=== PATIENT | female | born 1965 | race Caucasian/White ===

== ENCOUNTER 2018-06-13 16:54 | Inpatient (IN) | payer OTHER ==
--- NOTE | 2018-06-13 17:05 | PDOC ---
History of Present Illness - General Chief Complaint: Shortness of Breath Stated Complaint: Vomiting/Diarrhea FEVER Time Seen by Provider: 06/13/18 17:05 - History of Present Illness Initial Comments: 53 yo F with a hx of COPD, Asthma, PE, multiple episodes of PNA, Hep C, endocarditis, T2DM, HTN, CAD, pacemaker, kidney disease, anxiety is here with a week of subjective fevers, unintentional 15 ib weight loss, night sweats, productive cough with blood streaked sputum, watery diarrhea, throat pain, SOB and extreme difficulty breathing. She admits to a hx of prior IV drug use with heroin. She also endorses chronic headaches and back pain. She denies a hx of HIV - She has verbally consented to be tested for HIV Patient does not have a PCP Number of her brother: Cell - [phone]. Home - [phone] Allergies: Ciprofloxacin, Sulfa drugs. Patient has a hx of heroin use. She smokes half a pack a day. Drinks recreationally. Past History - Past Medical History Allergies/Adverse Reactions: Allergies Allergy/AdvReac Type Severity Reaction Status Date / Time ciprofloxacin [From Cipro] Allergy Verified 06/13/18 16:59 Sulfa (Sulfonamide Allergy Verified 06/13/18 16:59 Antibiotics) Review of Systems - Review of Systems Comments:: CONSTITUTIONAL: Present: fever, chills, diaphoresis, generalized weakness, malaise, loss of appetite HEENT: Present: Throat pain Absent: rhinorrhea, nasal congestion, throat swelling, difficulty swallowing, mouth swelling, ear pain, eye pain, visual Changes CARDIOVASCULAR: Absent: chest pain, syncope, palpitations, irregular heart rate, lightheadedness , peripheral edema RESPIRATORY: Present: cough, shortness of breath, wheezing, hemoptysis Absent: cough, shortness of breath, orthopnea, stridor GASTROINTESTINAL: Present: nausea, vomiting, diarrhea Absent: abdominal pain, abdominal distension, constipation, melena, hematochezia GENITOURINARY: Present: dysuria, frequency, urgency Absent: hesitancy, hematuria, flank pain, genital pain MUSCULOSKELETAL: Present: Myalgia Absent: arthralgia, joint swelling SKIN: Absent: rash, itching, pallor HEMATOLOGIC/IMMUNOLOGIC: Present: frequent infections Absent: easy bleeding, easy bruising, lymphadenopathy ENDOCRINE: Absent: unexplained weight gain, unexplained weight loss, heat intolerance, cold intolerance NEUROLOGIC: present: headache Absent: focal weakness or paresthesias, dizziness, unsteady gait, seizure, mental status changes, bladder or bowel incontinence PSYCHIATRIC: Present: anxiety Absent: depression, suicidal or homicidal ideation, hallucinations. *Physical Exam - Physical Exam Comments: Rectal Temp: 101.5 GENERAL: Well developed, well nourished. Awake and alert. Moderate distress. HEENT: Oropharynx has significant foam and saliva. She appears very dry. Normocephalic, atraumatic. PERRLA, EOMI. No conjunctival pallor. Sclera are non- icteric. Moist mucous membranes. NECK: Supple. Full ROM. No JVD. No thyromegaly. No lymphadenopathy. CARDIOVASCULAR: Tachycardic rate and regular rhythm. No murmurs, rubs, or gallops. Distal pulses are 2+ and symmetric. PULMONARY: There are diffuse rales and expiratory wheezes throughout all lung ga. Clear evidence of respiratory distress. No rhonchi or crackles. ABDOMINAL: Soft. Non-tender. Non-distended. No rebound or guarding. No organomegaly. Normoactive bowel sounds. MUSCULOSKELETAL Normal range of motion at all joints. No bony deformities or tenderness. No CVA tenderness. EXTREMITIES: No cyanosis. No clubbing. No edema. No calf tenderness. SKIN: Warm and dry. Normal capillary refill. No rashes. No jaundice. NEUROLOGICAL: Alert, awake, appropriate. Cranial nerves 2-12 intact. No deficits to light touch in face, upper extremities and lower extremities. No motor deficits in the in face, upper extremities and lower extremities. Normal speech. Gait is normal without ataxia. PSYCHIATRIC: Extremely anxious mood. Cooperative. Good eye contact. Appropriate affect. ED Treatment Course - LABORATORY CBC & Chemistry Diagram: 06/13/18 17:55 06/13/18 17:55 Medical Decision Making - Medical Decision Making 53 yo F with a hx of COPD, Asthma, multiple episodes of PNA, Hep C, endocarditis , T2DM, HTN, CAD, pacemaker, kidney disease, anxiety is here with a week of subjective fevers, unintentional 15 ib weight loss, night sweats, productive cough with blood streaked sputum, watery diarrhea, throat pain, SOB and extreme difficulty breathing. She admits to a hx of prior IV drug use with heroin. DD is large but highest on it includes: PNA, Asthma exacerbation, COPD exacerbation, PE, CHF, HIV, TB, Lung cancer, URI, Gastroenteritis, Hep C exacerbation, UTI/pylo. Rectal Temp at bedside is 101.5 - this is most likely an infection of some sort. Plan: Labs, urine, flu swab, CXR, CTA, BI-pap, tylenol, duoneb, fluids, re- assess. Vbg shows CO2 retention implying this is likely a COPD exacerbation. Diffuse expiratory wheezes on auscultation likely from an asthma exacerbation. She meets SIRS criteria and is likely Septic. - will start broad spectrum Abx in ED. - plan is to admit patient to the ICU. *DC/Admit/Observation/Transfer Diagnosis at time of Disposition: Pneumonia, COPD exacerbation, Sepsis, Severe sepsis - Discharge Dispostion Condition at time of disposition: Guarded Decision to Admit order: Yes - Referrals - Patient Instructions - Post Discharge Activity
[2018-06-13] MEDS ORDERED: ALBUTEROL SO4 2.5/IPRATROPIUM 0.5 INH SOL 3 ML VIAL.NEB. NEB ONE ×2 (17:28→17:48)
[2018-06-13] MEDS ORDERED: ACETAMINOPHEN 1000 MG/100 ML VIAL (NON FORMULARY) IVPB ONE (17:28)
[2018-06-13] MEDS ORDERED: SODIUM CHLORIDE 0.9% 500 ML INFUS.BAG IV ONE (17:28)
[2018-06-13 18:09] LABS: BASO % 0.4 % (0-2.0); EOS % 1.7 % (0-4.5); HEMATOCRIT 34.7 % (32.4-45.2); HEMOGLOBIN 11.5 GM/dL (10.7-15.3); LYMPH % 17.5 % (8-40); MCH 31.7 pg (25.7-33.7); MEAN CELL VOLUME 95.8 fl (80-96); MEAN PLT VOLUME 8.9 fl (7.5-11.1); MONO % 7.6 % (3.8-10.2); NEUT % 72.8 % (42.8-82.8); PLATELET COUNT 156 K/MM3 (134-434); RBC 3.62 M/mm3 (3.60-5.2); RDW 14.2 % (11.6-15.6); WHITE BLOOD COUNT 5.3 K/mm3 (4.0-10.0)
[2018-06-13] MEDS ORDERED: ACETAMINOPHEN INJECTION 100 ML IVPB ONE (18:12)
--- NOTE | 2018-06-13 18:15 | PDOC ---
Attending Attestation - Resident Resident Name: KatrinafrannyChepe - ED Attending Attestation I have performed the following: I have examined & evaluated the patient, The case was reviewed & discussed with the resident, I agree w/resident's findings & plan, Exceptions are as noted - HPI HPI: 06/13/18 18:19 The patient is a 53 year old female, with a significant past medical history of COPD, asthma (multiple episodes of pneumonia), Hepatitis C, DM (type 2), HTN, CAD, pacemaker, kidney disease, and anxiety, who presents to the emergency department with, 1 week of subjective fevers with chills, chest pain, shortness of breath, cough, and watery diarrhea. The patient also endorses blood streaked sputum and a 15 lb weight loss. The patient is currently homeless and has not been able to take her medications for the past week. She denies recent headache or dizziness. She denies recent nausea, vomit, or constipation. She denies recent dysuria, frequency, urgency or hematuria. Allergies: Ciprofloxacin, Sulfa (Sulfonamide antibiotics) Social history: Former IV heroin user. Smoker (40 cigarettes daily). - Physicial Exam PE: 06/13/18 18:20 GENERAL: Awake, alert, and fully oriented, in no acute distress HEAD: No signs of trauma EYES: PERRLA, EOMI, sclera anicteric, conjunctiva clear ENT: Auricles normal inspection, hearing grossly normal, nares patent, oropharynx clear without exudates. Moist mucosa NECK: Normal ROM, supple, no lymphadenopathy, JVD, or masses LUNGS: diffuse expiratory wheezing with good air movement, no crackles or rales HEART: Tachy but regular, rate 110, normal S1 and S2, no murmurs, rubs or gallops ABDOMEN: Soft, nontender, normoactive bowel sounds. No guarding, no rebound. No masses EXTREMITIES: Normal range of motion, no edema. No clubbing or cyanosis. No cords, erythema, or tenderness NEUROLOGICAL: Normal speech, cranial nerves intact, negative pronator drift, 5/ 5 strength in all 4 extremities, normal sensation to light touch in all 4 extremities, normal cerebellar exam, normal gait, normal reflexes and tone SKIN: Warm, Dry, normal turgor, no rashes or lesions noted. - Medical Decision Making 06/13/18 18:21 53yo F with MMP presents to the ED with F/C, CP, SOB, productive cough. Pt tachy , hypoxic, slightly tachypneic but without increased WOB. Exam with diffuse wheezing. Story c/f possible TB vs asthma exac +/- PNA given cough, subjective fevers. PE also a possibilty but no known RF. If sxs don't improve with nebs/ steroids, will consider PE. Endocarditis also a possibility given IVDU. Pt reports a possible hx of endocarditis 2 years ago at [facility], but she is not sure. Pt on droplet precautions until TB ruled out. 06/13/18 23:00 CTA with no PE, infiltrates, acute findings PT notably has MV and TV replacements Endocarditis high on the differential given IVDU and valve replacements Case accepted by ICU provider Case signed out to Dr. Nava by Dr James, pt accepted for admission. Dr Nava currently at bedside evaluating pt with admitting team Case discussed in detail with admitting physician including history, physical exam and ancillary studies. Admitting physician has assumed care for the patient, will follow all pending diagnostics and will complete the evaluation and treatment.
[2018-06-13 18:19] LABS: VENOUS PO2 28.3 mmHg (28-48)
[2018-06-13 18:21] LABS: INR 0.97 (0.83-1.09); PROTHROMBIN TIME (PATIENT) 11.5 SEC (9.7-13.0); VENOUS PC02 67.3 mmHg (38-52)
[2018-06-13 18:24] LABS: ACTIVATED PTT 29.7 SECONDS (25.2-36.5)
[2018-06-13] MEDS ORDERED: VANCOMYCIN 1,000 MG in DEXTROSE 5%-WATER - 250 ML IVPB ONE (18:37)
[2018-06-13] MEDS ORDERED: PIPERACILLIN/TAZOB 3.375 GM 3.375 GM in DEXTROSE 5%-WATER - 50 ML IVPB ONE (18:41)
[2018-06-13 18:47] LABS: ALBUMIN 3.1 g/dl (3.4-5.0); ALK PHOS 56 U/L (45-117); ANION GAP 6 MMOL/L (8-16); BILIRUBIN,TOTAL 0.2 mg/dL (0.2-1); BLOOD UREA NITROGEN 11 mg/dL (7-18); CALCIUM 9.3 mg/dL (8.5-10.1); CHLORIDE 102 mmol/L (98-107); CO2 31 mmol/L (21-32); CREATININE 0.8 mg/dL (0.55-1.3); GLUCOSE,RANDOM 150 mg/dL (74-106); LIPASE 90 U/L (73-393); MAGNESIUM 1.5 mg/dL (1.8-2.4); N-TERMINAL BNP 1589.7 pg/ml (5-125); PHOSPHOROUS 3.4 mg/dL (2.5-4.9); POTASSIUM 5.9 mmol/L (3.5-5.1); SGOT/AST 15 U/L (15-37); SGPT/ALT 28 U/L (13-61); SODIUM 139 mmol/L (136-145); TOT PROT 6.9 g/dl (6.4-8.2)
[2018-06-13] MEDS ORDERED: PIPERACILLIN/TAZOB 3.375 GM 3.375 GM/50 ML BAG IVPB ONE (19:23)
[2018-06-13 19:29] LABS: ARTERIAL BLD GAS O2 SATURATION 96.8 % (90-98.9); ARTERIAL BLOOD GAS BASE EXCESS 2.5 meq/l (-2-2); ARTERIAL BLOOD GAS PO2 87.5 mmHg (80-100); ARTERIAL BLOOD GAS pH 7.29 (7.35-7.45)
[2018-06-13 19:32] LABS: ARTERIAL BLOOD GAS PCO2 63.9 mmHg (35-45)
[2018-06-13] MEDS ORDERED: VANCOMYCIN 1 GRAM (PRE-DOCKED) 1,000 MG/250 ML BAG IVPB ONE (20:13)
[2018-06-13 22:22] LABS: ARTERIAL BLOOD GAS BASE EXCESS -0.1 meq/l (-2-2)
[2018-06-13 22:26] LABS: ARTERIAL BLD GAS O2 SATURATION 99.7 % (90-98.9); ARTERIAL BLOOD GAS PCO2 68.7 mmHg (35-45)
[2018-06-13] MEDS ORDERED: SODIUM CHLORIDE 1,000 ML IV SCH (23:15)
--- NOTE | 2018-06-13 23:30 | CONSULT ---
Consultation: REQUESTING PROVIDER: CONSULT REQUEST: We have been asked to medically evaluate this patient for ICU. HISTORY OF PRESENT ILLNESS: 53 y/o homeless F with PMH CAD s/p PPM, COPD (not on home 02), asthma, hx multiple PE (unclear whether on a/c; non compliant with meds), multiple episodes of PNA, endocarditis, hx IVDA (heroin, last use unknown), HTN, kidney dz, DM who presented to the ED with one week hx of subjective fever, fifteen pound weight loss, hemoptysis, productive cough, headache, neck pain and multiple loose BM's. History as per ED staff, as on exam, pt unable to further explain symptoms. As per primary team, pt has also been homeless, and developed these sx after returning home. On initial presentation in ED, pt with temp 101.5F, tachy to 122, RR 25, initial 02 sat 87% on RA. 100% on 4L 02. CTA (-) for PE, CXR without evidence of infiltrate. Pt received ofirmev 1g IVPB x 1, duonebs, 1L NS, vanc, zosyn in ED. With recent ABG of pH 7.2/68.7/p02 281/hc03 28.2. Started on BiPAP 06/19 RR 14, 80% 02 by ED staff. REVIEW OF SYSTEMS: CONSTITUTIONAL: +fever, weight loss Absent: chills, diaphoresis, generalized weakness, malaise, loss of appetite HEENT: Absent: rhinorrhea, nasal congestion, throat pain, throat swelling, difficulty swallowing, mouth swelling, ear pain, eye pain, visual changes CARDIOVASCULAR: Absent: chest pain, syncope, palpitations, irregular heart rate, lightheadedness , peripheral edema RESPIRATORY: +cough Absent: shortness of breath, dyspnea with exertion, orthopnea, wheezing, stridor , hemoptysis GASTROINTESTINAL: +diarrhea Absent: abdominal pain, abdominal distension, nausea, vomiting, constipation, melena, hematochezia GENITOURINARY: Absent: dysuria, frequency, urgency, hesitancy, hematuria, flank pain, genital pain MUSCULOSKELETAL: Absent: myalgia, arthralgia, joint swelling, back pain, neck pain SKIN: Absent: rash, itching, pallor HEMATOLOGIC/IMMUNOLOGIC: Absent: easy bleeding, easy bruising, lymphadenopathy, frequent infections ENDOCRINE: +unexplained weight loss Absent: unexplained weight gain, heat intolerance, cold intolerance NEUROLOGIC: Absent: headache, focal weakness or paresthesias, dizziness, unsteady gait, seizure, mental status changes, bladder or bowel incontinence PSYCHIATRIC: Absent: anxiety, depression, suicidal or homicidal ideation, hallucinations. PHYSICAL EXAMINATION Vital Signs - 24 hr 06/13/18 06/13/18 06/13/18 17:00 17:06 18:24 Temperature 99.3 F 101.4 F H Pulse Rate 122 H 115 H Pulse Rate [ Right] Respiratory 25 H Rate Blood Pressure 119/92 Blood Pressure [Left Arm] O2 Sat by Pulse 87 L 100 Oximetry (%) 06/13/18 06/13/18 06/13/18 19:00 23:00 23:02 Temperature 97.3 F L Pulse Rate Pulse Rate [ 82 Right] Respiratory 17 Rate Blood Pressure Blood Pressure 140/67 [Left Arm] O2 Sat by Pulse 100 100 99 Oximetry (%) GENERAL: Awake, in no acute distress. On BiPAP. unclear whether pt lethargic or confused HEAD: Normal with no signs of trauma. EYES: Pupils equal, round and reactive to light EARS, NOSE, THROAT: Ears normal, nares patent, oropharynx clear NECK: Normal range of motion LUNGS: +rales, expiratory wheezing b/l. no rhonchi appreciated. HEART: +tachycardic rate and rhythm, normal S1 and S2 without murmur, rub or gallop. ABDOMEN: Soft, nontender, not distended, normoactive bowel sounds, no guarding, no rebound, no masses. LOWER EXTREMITIES: 2+ pt pulses, warm, well-perfused. No calf tenderness. No peripheral edema. NEUROLOGICAL: Cranial nerves II-XII intact. unclear whether pt lethargic or confused PSYCHIATRIC: as above SKIN: Warm, dry, normal turgor Laboratory Tests 06/13/18 06/13/18 06/13/18 17:55 19:00 22:05 ABG pH 7.20 L* ABG pCO2 at Pt Temp 68.7 H* ABG pO2 at Pt Temp 281.0 H* ABG HCO3 28.2 H ABG O2 Sat (Measured) 99.7 H* Sodium 139 Potassium 5.9 H Chloride 102 Carbon Dioxide 31 Anion Gap 6 L BUN 11 Creatinine 0.8 Creat Clearance w eGFR > 60 Random Glucose 150 H B-Natriuretic Peptide 1589.7 H HIV 1&2 Antibody Screen Negative HIV P24 Antigen Negative ASSESSMENT/PLAN: 53 y/o homeless F with PMH CAD s/p PPM, COPD (not on home 02), asthma, hx multiple PE (unclear whether on a/c; non compliant with meds), multiple episodes of PNA, endocarditis, hx IVDA (heroin, last use unknown), HTN, kidney dz, DM, who presented to the ED with one week hx of subjective fever, fifteen pound weight loss, hemoptysis, productive cough, headache, neck pain and multiple loose BM's. Pt admitted for acute hypercapnic resp failure 2/2 possible COPD exacerbation, as well as sepsis 2/2 unknown etiology. PULM #Acute hypercapnic resp failure 2/2 possible COPD exacerbation -pt with CO2 retention, may have caused AMS. unclear whether pt's baseline -BiPAP settings current ipap 12/ epap 5/ RR 18/ Fi02 40% -Continue to follow ABG, for NIPPV correction -duonebs QIDR, albuterol nebs q4h PRN -solumedrol 60mg IVP q8h #Hemoptysis -r/o Tb; f/u quantiferon -initial HIV test (-) -will place in isolation as results still pending Cardio #HTN -currently controlled -continue to monitor ID #Sepsis 2/2 unknown etiology -Currently without infectious source; no evidence of infiltrate on CXR, UA; lactic WNL -as IVDA, will do ECHO to r/o endocarditis as febrile -continue vanc 1g IVPB qd, zosyn 3.375g q8h IVPB -F/u blood cx, urine cx -ID consult: Dr. Mason #AMS -possibly 2/2 infectious cause, or hypercapnia 2/2 COPD exacerbation -f/u Head CT non-con Endocrine #DM -ISS -BGM Heme #Hx multiple PE -pt unaware of medications or a/c -will need to contact pharmacy for further info #weight loss, night sweats -may need heme consult; ?malignancy Renal #hyperkalemia -will repeat; initial 5.9 -if still elevated will tx with insulin/d50/nebs #F/E/N IV NS 83 cc/hr ; no signs of overload currently continue to monitor lytes NPO; will need speech and swallow consult #PPX DVT: SCD's #Dispo ICU monitoring Dispo: We will continue to follow the patient. Thank you for this consultative opportunity. Visit type - Emergency Visit Emergency Visit: Yes ED Registration Date: 06/13/18 Care time: The patient presented to the Emergency Department on the above date and was hospitalized for further evaluation of their emergent condition. - New Patient This patient is new to me today: Yes Date on this admission: 06/14/18 - Critical Care Critical Care patient: Yes Total Critical Care Time (in minutes): 40 Critical Care Statement: The care of this patient involved high complexity decision making to prevent further life threatening deterioration of the patient 's condition and/or to evaluate & treat vital organ system(s) failure or risk of failure.
--- NOTE | 2018-06-13 23:31 | PN ---
Teaching Attending Note Name of Resident: Guevara Balderas ATTENDING PHYSICIAN STATEMENT I saw and evaluated the patient. I reviewed the resident's note and discussed the case with the resident. I agree with the resident's findings and plan as documented. SUBJECTIVE: OBJECTIVE: ASSESSMENT AND PLAN: this is a 53 y/o female patient with history of HTN, Polysubstance abuse(IV drugs in the past), was brought by her family member for AMS, patient was found to be in Hypercapnic respiratory failure 2/2 acute on chronic COPD exacerbation plan: Hyperkalemia: hypomagnesemia: Hypercapnic respiratory failure 2/2 to acute on chronic COPD exacerbation: - pulmonary consultation -admit the patient to ICU due to high risk of intubation - increase the respiratory setting for the BiPAP repeat ABG after the setting - albuterol and ipratropium bromide - COPD exacerbation start the patient on Levofloxacin IV 750mg daily until pulmonary clearance - obtain drug screen if the patient - echocardiogram to evaluate the valves
[2018-06-14 00:03] LABS: URINE APPEARANCE CLEAR; URINE BILIRUBIN NEGATIVE (<2.0 mg/dL); URINE COLOR LTYELLOW; URINE GLUCOSE (UA) NEGATIVE (NEGATIVE); URINE KETONE NEGATIVE (NEGATIVE); URINE LEUK ESTERASE NEGATIVE (NEGATIVE); URINE NITRITE NEGATIVE (NEGATIVE); URINE PROTEIN NEGATIVE (NEGATIVE); URINE UROBILINOGEN NEGATIVE mg/dL (0.2-1.0)
--- NOTE | 2018-06-14 00:17 | HP ---
CHIEF COMPLAINT: fevers, cough, night sweats PCP: unknown HISTORY OF PRESENT ILLNESS: 53 year old female with a known pmh of COPD, asthma, HCV, DM, HTN, CAD s/p pacemaker, and kidney disease was brought to the hospital by brother for > 1 week of fevers, hemoptysis, night sweats, dyspnea, nausea vomiting and diarrhea , headache and neck pain. Patient has an altered mental status on exam and is not able to answer questions. Called the brother, who informed me that the patient was homeless and that they took her in 1 week ago. Reports that all of the above symptoms had begun prior to her arrival at the hospital. Patient's home medications, pharmacy, and medical conditions are unknown to the family. The family reports prior heroin and opiate use, but claim that she has not done it within the past week. Patient lives in the [place]. Unknown sick contacts. ER course was notable for: (1) fever with temp 101 (2) acute hypercapnic respiratory failure necessitating bipap control with acute respiratory acidosis (3) Recent Travel: unknown PAST MEDICAL HISTORY: COPD, asthma, HCV, DM, HTN, CAD s/p pacemaker, and kidney disease PAST SURGICAL HISTORY: pacemaker Social History: Smoking: unknown Alcohol: unknown Drugs: heroin and opiates Family History: unknown Allergies ciprofloxacin [From Cipro] Allergy (Verified 06/13/18 16:59) Sulfa (Sulfonamide Antibiotics) Allergy (Verified 06/13/18 16:59) HOME MEDICATIONS: unknown home medications REVIEW OF SYSTEMS CONSTITUTIONAL: Absent: fever, chills, diaphoresis, generalized weakness, malaise, loss of appetite, weight change HEENT: Absent: rhinorrhea, nasal congestion, throat pain, throat swelling, difficulty swallowing, mouth swelling, ear pain, eye pain, visual changes CARDIOVASCULAR: Absent: chest pain, syncope, palpitations, irregular heart rate, lightheadedness , peripheral edema RESPIRATORY: Absent: cough, shortness of breath, dyspnea with exertion, orthopnea, wheezing, stridor, hemoptysis GASTROINTESTINAL: Absent: abdominal pain, abdominal distension, nausea, vomiting, diarrhea, constipation, melena, hematochezia GENITOURINARY: Absent: dysuria, frequency, urgency, hesitancy, hematuria, flank pain, genital pain MUSCULOSKELETAL: Absent: myalgia, arthralgia, joint swelling, back pain, neck pain SKIN: Absent: rash, itching, pallor HEMATOLOGIC/IMMUNOLOGIC: Absent: easy bleeding, easy bruising, lymphadenopathy, frequent infections ENDOCRINE: Absent: unexplained weight gain, unexplained weight loss, heat intolerance, cold intolerance NEUROLOGIC: Absent: headache, focal weakness or paresthesias, dizziness, unsteady gait, seizure, mental status changes, bladder or bowel incontinence PSYCHIATRIC: Absent: anxiety, depression, suicidal or homicidal ideation, hallucinations. PHYSICAL EXAMINATION Vital Signs - 24 hr 06/13/18 06/13/18 06/13/18 17:00 17:06 18:24 Temperature 99.3 F 101.4 F H Pulse Rate 122 H 115 H Pulse Rate [ Right] Respiratory 25 H Rate Blood Pressure 119/92 Blood Pressure [Left Arm] O2 Sat by Pulse 87 L 100 Oximetry (%) 06/13/18 06/13/18 06/13/18 19:00 23:00 23:02 Temperature 97.3 F L Pulse Rate Pulse Rate [ 82 Right] Respiratory 17 Rate Blood Pressure Blood Pressure 140/67 [Left Arm] O2 Sat by Pulse 100 100 99 Oximetry (%) GENERAL: A&Ox0, comfortable on bipap EYES: PERRLA, EOMI ENT: Moist mucus membranes NECK: No JVD LUNGS: coarse breath sounds, wheezes noted bilaterally HEART: RRR, no murmurs ABDOMEN: Soft, nontender, BS present MUSCULOSKELETAL: No CVA Tenderness EXTREMITIES: 2+ pulses, no edema. Laboratory Results - last 24 hr 06/13/18 06/13/18 06/13/18 17:55 17:55 17:55 WBC 5.3 RBC 3.62 Hgb 11.5 Hct 34.7 MCV 95.8 MCH 31.7 MCHC 33.0 RDW 14.2 Plt Count 156 MPV 8.9 Absolute Neuts (auto) 3.9 Neutrophils % 72.8 Lymphocytes % 17.5 Monocytes % 7.6 Eosinophils % 1.7 Basophils % 0.4 Nucleated RBC % 0 PT with INR 11.50 INR 0.97 PTT (Actin FS) 29.7 Anticoagulation Therapy Puncture Site ABG pH ABG pCO2 at Pt Temp ABG pO2 at Pt Temp ABG HCO3 ABG O2 Sat (Measured) ABG O2 Content ABG Base Excess Alhaji Test VBG pH 7.30 L POC VBG pCO2 67.3 H* POC VBG pO2 28.3 Mixed VBG HCO3 No Result Required. Carboxyhemoglobin Methemoglobin O2 Delivery Device Oxygen Flow Rate Vent Mode Vent Rate Mechanical Rate Pressure Support Vent Sodium Potassium Chloride Carbon Dioxide Anion Gap BUN Creatinine Creat Clearance w eGFR Random Glucose Lactic Acid Calcium Phosphorus Magnesium Total Bilirubin AST ALT Alkaline Phosphatase Creatine Kinase Troponin I C-Reactive Protein B-Natriuretic Peptide Total Protein Albumin Lipase Urine Color Urine Appearance Urine pH Ur Specific Prince Urine Protein Urine Glucose (UA) Urine Ketones Urine Blood Urine Nitrite Urine Bilirubin Urine Urobilinogen Ur Leukocyte Esterase HIV 1&2 Antibody Screen HIV P24 Antigen Blood Type Antibody Screen 06/13/18 06/13/18 06/13/18 17:55 17:55 18:00 WBC RBC Hgb Hct MCV MCH MCHC RDW Plt Count MPV Absolute Neuts (auto) Neutrophils % Lymphocytes % Monocytes % Eosinophils % Basophils % Nucleated RBC % PT with INR INR PTT (Actin FS) Anticoagulation Therapy Puncture Site ABG pH ABG pCO2 at Pt Temp ABG pO2 at Pt Temp ABG HCO3 ABG O2 Sat (Measured) ABG O2 Content ABG Base Excess Alhaji Test VBG pH POC VBG pCO2 POC VBG pO2 Mixed VBG HCO3 Carboxyhemoglobin Methemoglobin O2 Delivery Device Oxygen Flow Rate Vent Mode Vent Rate Mechanical Rate Pressure Support Vent Sodium 139 Potassium 5.9 H Chloride 102 Carbon Dioxide 31 Anion Gap 6 L BUN 11 Creatinine 0.8 Creat Clearance w eGFR > 60 Random Glucose 150 H Lactic Acid 1.4 Calcium 9.3 Phosphorus 3.4 Magnesium 1.5 L Total Bilirubin 0.2 AST 15 ALT 28 Alkaline Phosphatase 56 Creatine Kinase 45 Troponin I < 0.02 C-Reactive Protein 2.4 H B-Natriuretic Peptide 1589.7 H Cancelled Total Protein 6.9 Albumin 3.1 L Lipase 90 Urine Color Urine Appearance Urine pH Ur Specific Prince Urine Protein Urine Glucose (UA) Urine Ketones Urine Blood Urine Nitrite Urine Bilirubin Urine Urobilinogen Ur Leukocyte Esterase HIV 1&2 Antibody Screen HIV P24 Antigen Blood Type Antibody Screen 06/13/18 06/13/18 06/13/18 19:00 19:00 19:00 WBC RBC Hgb Hct MCV MCH MCHC RDW Plt Count MPV Absolute Neuts (auto) Neutrophils % Lymphocytes % Monocytes % Eosinophils % Basophils % Nucleated RBC % PT with INR INR PTT (Actin FS) Anticoagulation Therapy No Result Required. Puncture Site Right radial ABG pH 7.29 L ABG pCO2 at Pt Temp 63.9 H* ABG pO2 at Pt Temp 87.5 ABG HCO3 29.9 H ABG O2 Sat (Measured) 96.8 ABG O2 Content 15.3 ABG Base Excess 2.5 H Alhaji Test No Result Required. VBG pH POC VBG pCO2 POC VBG pO2 Mixed VBG HCO3 Carboxyhemoglobin 3.0 H Methemoglobin 1.5 O2 Delivery Device Nasal Oxygen Flow Rate 3 Vent Mode No Result Required. Vent Rate No Result Required. Mechanical Rate No Result Required. Pressure Support Vent No Result Required. Sodium Potassium Chloride Carbon Dioxide Anion Gap BUN Creatinine Creat Clearance w eGFR Random Glucose Lactic Acid 0.9 Calcium Phosphorus Magnesium Total Bilirubin AST ALT Alkaline Phosphatase Creatine Kinase Troponin I C-Reactive Protein B-Natriuretic Peptide Total Protein Albumin Lipase Urine Color Urine Appearance Urine pH Ur Specific Prince Urine Protein Urine Glucose (UA) Urine Ketones Urine Blood Urine Nitrite Urine Bilirubin Urine Urobilinogen Ur Leukocyte Esterase HIV 1&2 Antibody Screen HIV P24 Antigen Blood Type A NEGATIVE Antibody Screen Negative 06/13/18 06/13/18 06/13/18 19:00 22:05 23:25 WBC RBC Hgb Hct MCV MCH MCHC RDW Plt Count MPV Absolute Neuts (auto) Neutrophils % Lymphocytes % Monocytes % Eosinophils % Basophils % Nucleated RBC % PT with INR INR PTT (Actin FS) Anticoagulation Therapy No Result Required. Puncture Site No Result Required. ABG pH 7.20 L* ABG pCO2 at Pt Temp 68.7 H* ABG pO2 at Pt Temp 281.0 H* ABG HCO3 28.2 H ABG O2 Sat (Measured) 99.7 H* ABG O2 Content No Result Required. ABG Base Excess -0.1 Alhaji Test No Result Required. VBG pH POC VBG pCO2 POC VBG pO2 Mixed VBG HCO3 Carboxyhemoglobin Methemoglobin 1.7 H O2 Delivery Device No Result Required. Oxygen Flow Rate No Result Required. Vent Mode No Result Required. Vent Rate No Result Required. Mechanical Rate No Result Required. Pressure Support Vent No Result Required. Sodium Potassium Chloride Carbon Dioxide Anion Gap BUN Creatinine Creat Clearance w eGFR Random Glucose Lactic Acid Calcium Phosphorus Magnesium Total Bilirubin AST ALT Alkaline Phosphatase Creatine Kinase Troponin I C-Reactive Protein B-Natriuretic Peptide Total Protein Albumin Lipase Urine Color Ltyellow Urine Appearance Clear Urine pH 5.0 Ur Specific Prince 1.028 Urine Protein Negative Urine Glucose (UA) Negative Urine Ketones Negative Urine Blood Negative Urine Nitrite Negative Urine Bilirubin Negative Urine Urobilinogen Negative Ur Leukocyte Esterase Negative HIV 1&2 Antibody Screen Negative HIV P24 Antigen Negative Blood Type Antibody Screen ASSESSMENT/PLAN: 53 year old female with a known pmh of COPD, asthma, HCV, DM, HTN, CAD s/p pacemaker, and kidney disease was brought to the hospital by brother for > 1 week of fevers, hemoptysis, night sweats, dyspnea, nausea vomiting and diarrhea , headache and neck pain. #Acute Hypercapnic Respiratory Failure: 2/2 COPD exacerbation -duonebs -solumedrol 60 TID -ICU recommendations -BIPAP settings as per ICU team -monitor O2 saturation #Altered Mental Status: likely 2/2 CO2 retention and hypercarcbia -ordered head CT -ID consulted #SIRS: concerning picture due to history of fevers, hemoptysis, night sweats -HIV negative -quantgold ordered -blood culture, urine culture -head CT ordered -ID consulted -Vanc/zosyn ordered #DM: glucose 150 -unknown home medications -BGM Q6h -ISS #HTN: patient is normotensive -unknown home medications #CAD s/p Pacemaker: not an acute issue -unknown home medications or pharmacy #FEN -NPO for now -hyperkalemic at 5.9, will repeat -NS @ 83cc/hr #Prophylaxis -SCDs #Disposition -admit ICU Visit type - Emergency Visit Emergency Visit: Yes Care time: The patient presented to the Emergency Department on the above date and was hospitalized for further evaluation of their emergent condition. - New Patient This patient is new to me today: Yes Date on this admission: 06/14/18 - Critical Care Critical Care patient: Yes Total Critical Care Time (in minutes): 35 Critical Care Statement: The care of this patient involved high complexity decision making to prevent further life threatening deterioration of the patient 's condition and/or to evaluate & treat vital organ system(s) failure or risk of failure. Hospitalist Screening - Colonoscopy Questionnaire Colonoscopy Questionnaire: Colonoscopy Questionnaire - Patient: 50 - 75 years old and never had a screening colonoscopy: Unknown History of colon or rectal polyps, or CA: Unknown History of IBD, Crohn's disease or UC: Unknown History of abdominal radiation therapy as a child: Unknown - Relative: 1 with colon or rectal CA, or polyps at age 60 or younger: Unknown Colon or rectal CA diagnosed at age 45 or younger: Unknown Multiple relatives with colon or rectal CA: Unknown - Outcome: Screening Result: Negative Screen
[2018-06-14] MEDS ORDERED: ALBUTEROL SO4 0.083% IH SOL 2.5 MG/3 ML VIAL.NEB. NEB PRN (00:30)
[2018-06-14 00:33] LABS: COCAINE, UR NEGATIVE ng/ml (CUTOFF=300); METHADONE, UR NEGATIVE ng/ml (CUTOFF=300); PHENCYCLIDINE,URINE NEGATIVE ng/ml (CUTOFF=25); URINE AMPHETAMINES NEGATIVE ng/ml (CUTOFF=500); URINE BARBITURATES NEGATIVE ng/ml (CUTOFF=200)
[2018-06-14 00:35] LABS: URINE BENZODIAZEPINES POSITIVE ng/ml (CUTOFF=200)
[2018-06-14 00:36] LABS: OPIATES, URI POSITIVE ng/ml (CUTOFF=300)
[2018-06-14 00:59] LABS: ARTERIAL BLOOD GAS pH 7.25 (7.35-7.45)
[2018-06-14 01:00] LABS: ALLENS TEST POSITIVE; ARTERIAL BLD GAS O2 SATURATION 99.8 % (90-98.9); ARTERIAL BLOOD GAS BASE EXCESS 1.8 meq/l (-2-2)
[2018-06-14 01:01] LABS: ARTERIAL BLOOD GAS PCO2 71.6 mmHg (35-45)
[2018-06-14] MEDS: methylPREDNISolone NA SUCC 125 MG/2 ML VIAL IVPUSH SCH ×3 (01:31→17:01)
[2018-06-14] MEDS ORDERED: methylPREDNISolone NA SUCC 40 MG/1 ML VIAL ONE (01:44)
[2018-06-14 02:19] LABS: ANION GAP 2 MMOL/L (8-16); BLOOD UREA NITROGEN 11 mg/dL (7-18); CALCIUM 7.9 mg/dL (8.5-10.1); CHLORIDE 105 mmol/L (98-107); CO2 32 mmol/L (21-32); CREATININE 0.9 mg/dL (0.55-1.3); GLUCOSE,RANDOM 151 mg/dL (74-106); POTASSIUM 4.9 mmol/L (3.5-5.1); SODIUM 139 mmol/L (136-145)
[2018-06-14] MEDS: ALBUTEROL SO4 2.5/IPRATROPIUM 0.5 INH SOL 3 ML VIAL.NEB. NEB SCH ×5 (02:35→20:30)
[2018-06-14] MEDS ORDERED: DEXTROSE 5%-WATER - 50 ML IVPB ONE ×2 (02:43→09:02)
[2018-06-14] MEDS ORDERED: PIPERACILLIN/TAZOBACTAM 3.375 GM VIAL IVPB ONE ×2 (02:43→09:01)
[2018-06-14] MEDS: PIPERACILLIN/TAZOB 3.375 GM 3.375 GM in DEXTROSE 5%-WATER - 50 ML IVPB SCH ×2 (02:47→10:56)
[2018-06-14 02:51] VITALS: BMI 22.6
[2018-06-14] MEDS ORDERED: PIPERACILLIN/TAZOB 3.375 GM 3.375 GM in DEXTROSE 5%-WATER - 50 ML IVPB SCH ×2 (03:30→18:00)
[2018-06-14 03:36] LABS: ALLENS TEST POSITIVE; ARTERIAL BLD GAS O2 SATURATION 98.2 % (90-98.9); ARTERIAL BLOOD GAS BASE EXCESS 0.4 meq/l (-2-2)
[2018-06-14 03:37] LABS: ARTERIAL BLOOD GAS PCO2 69.9 mmHg (35-45); ARTERIAL BLOOD GAS pH 7.23 (7.35-7.45)
[2018-06-14 06:04] LABS: MCH 31.3 pg (25.7-33.7); MCHC 32.4 g/dl (32.0-36.0); MEAN CELL VOLUME 96.6 fl (80-96); MEAN PLT VOLUME 8.5 fl (7.5-11.1); PLATELET COUNT 119 K/MM3 (134-434); RBC 3.52 M/mm3 (3.60-5.2); RDW 14.2 % (11.6-15.6); WHITE BLOOD COUNT 3.5 K/mm3 (4.0-10.0)
[2018-06-14] MEDS: INSULIN SLIDING SCALE (NOVOLOG) 1 VIAL SQ SCH ×4 (06:37→22:51)
[2018-06-14 07:16] LABS: ANION GAP 4 MMOL/L (8-16); BLOOD UREA NITROGEN 10 mg/dL (7-18); CALCIUM 8.2 mg/dL (8.5-10.1); CHLORIDE 104 mmol/L (98-107); CO2 30 mmol/L (21-32); CREATININE 0.9 mg/dL (0.55-1.3); GLUCOSE,RANDOM 234 mg/dL (74-106); MAGNESIUM 1.7 mg/dL (1.8-2.4); PHOSPHOROUS 3.7 mg/dL (2.5-4.9); POTASSIUM 4.7 mmol/L (3.5-5.1); SODIUM 138 mmol/L (136-145)
[2018-06-14 08:28] LABS: ARTERIAL BLD GAS O2 SATURATION 96.7 % (90-98.9); ARTERIAL BLOOD GAS PO2 95.4 mmHg (80-100)
[2018-06-14 08:29] LABS: ARTERIAL BLOOD GAS BASE EXCESS -0.1 meq/l (-2-2)
[2018-06-14 08:30] LABS: ALLENS TEST POSITIVE
[2018-06-14 08:34] LABS: ARTERIAL BLOOD GAS pH 7.24 (7.35-7.45)
[2018-06-14] MEDS ORDERED: MAGNESIUM SULF 50% (8.12 MEQ/2 ML-1 GM VIAL) IVPB ONE (10:45)
[2018-06-14] MEDS ORDERED: methylPREDNISolone NA SUCC 125 MG/2 ML VIAL IVPUSH SCH (10:45)
[2018-06-14] MEDS: MUPIROCIN 2% TOPICAL OINTMENT FOR DECOLONIZATION NS SCH ×2 (10:57→21:47)
--- NOTE | 2018-06-14 11:18 | PN ---
Teaching Attending Note Name of Resident: Xiao Fontaine ATTENDING PHYSICIAN STATEMENT I saw and evaluated the patient. I reviewed the resident's note and discussed the case with the resident. I agree with the resident's findings and plan as documented. SUBJECTIVE: Pt seen and examined in the ICU. On BiPAP, somnolent but arousable. Last ABG still with respiratory acidosis. OBJECTIVE: Vital Signs Period Temp Pulse Resp BP Sys/[place] Pulse Ox Last 24 Hr 97.3 F-101.4 F 66-122 17-25 91-140/63-92 87-100 Intake & Output 06/11/18 06/12/18 06/13/18 06/14/18 23:59 23:59 23:59 23:59 Intake Total 50 Balance 50 Weight 51.256 kg 61.235 kg Gen: somnolent but arousable on BiPAP Heart: RRR Lung: distant breath sounds Abd: soft, nontender Ext: no edema CBC, BMP 06/14/18 05:30 06/14/18 05:30 ABG Results ABG pH 7.24 (7.35-7.45) L* 06/14/18 06:00 ABG pCO2 at Pt Temp 67.0 mmHg (35-45) H* 06/14/18 06:00 ABG pO2 at Pt Temp 95.4 mmHg (80-100) 06/14/18 06:00 ABG HCO3 27.7 meq/L (22-26) H 06/14/18 06:00 ABG O2 Sat (Measured) 96.7 % (90-98.9) 06/14/18 06:00 ABG O2 Content 17.6 % vol (15-22) 06/14/18 06:00 ABG Base Excess -0.1 meq/l (-2-2) 06/14/18 06:00 Active Medications Albuterol Sulfate (Ventolin 0.083% Nebulizer Soln -) 1 amp NEB Q4H PRN PRN Reason: SHORTNESS OF BREATH Albuterol/Ipratropium (Duoneb -) 1 amp NEB RQID RANDAL Last Admin: 06/14/18 10:00 Dose: 1 amp Chlorhexidine Gluconate (Hibiclens For Decolonization -) 1 applic TP HS RANDAL Enoxaparin Sodium (Lovenox -) 40 mg SQ DAILY RANDAL Sodium Chloride (Normal Saline -) 1,000 mls @ 83 mls/hr IV ASDIR RANDAL Stop: 06/14/18 11:18 Last Admin: 06/14/18 00:30 Dose: 83 mls/hr Vancomycin HCl 1,000 mg/ (Dextrose) 250 mls @ 200 mls/hr IVPB Q24H RANDAL; Protocol Piperacillin Sod/Tazobactam (Sod 3.375 gm/ Dextrose) 50 mls @ 100 mls/hr IVPB Q8H-IV RANDAL; Protocol Piperacillin Sod/Tazobactam (Sod 3.375 gm/ Dextrose) 50 mls @ 100 mls/hr IVPB Q8H RANDAL; Protocol Stop: 06/14/18 11:29 Last Admin: 06/14/18 10:56 Dose: 100 mls/hr Vancomycin HCl 1,000 mg/ (Dextrose) 250 mls @ 200 mls/hr IVPB ONCE ONE; Protocol Stop: 06/14/18 21:14 Insulin Aspart (Novolog Vial Sliding Scale -) 1 vial SQ ACHS [facility]; Protocol Last Admin: 06/14/18 06:37 Dose: 6 units Methylprednisolone Sodium Succinate (Solu-Medrol -) 60 mg IVPUSH Q8H-IV RANDAL Mupirocin (Bactroban Ointment (For Decolonization) -) 1 applic NS BID [facility] Stop: 06/19/18 09:59 Last Admin: 06/14/18 10:57 Dose: 1 applic ASSESSMENT AND PLAN: Acute on Chronic Hypoxic and Hypercapneic Respiratory Failure Acute COPD Exacerbation Pneumonia Hemoptysis Sepsis CAD HTN DM Hep C - continue medrol - inhaled bronchodilators - O2 to keep SpO2 >90% - adjusted BiPAP settings - f/u quantiferon - continue antibiotics - f/u cultures - send urine antigens - continue ICU monitoring critical care time spent in reviewing chart, evaluating patient and formulating plan 35 min
--- NOTE | 2018-06-14 12:53 | PN ---
Progress Note (short form) - Note Progress Note: ID Consult dictated History obtained entirely from chart as pt unable to provide hx 53 y/o HIV (-) ?homeless/ active IDU admitted with 1wk hx fever/ sweats/ wt loss, blood-streaked sputum CT chest + mass lesion RLL, ? Cavitary lesion RUL According to notes +hx endocarditis and valve replacements Now on bipap for resp failure Exacerbation COPD Possible lung neoplasm ? TB R/O endocarditis AFB isolation Sputum AFB/PCR Sputum cytology Quantiferon Blood c/s Empiric vancomycin/ cefepime
[2018-06-14] MEDS: ENOXAPARIN NA (PORCINE) 40 MG/0.4 ML DISP.SYRIN SQ SCH (14:00)
--- NOTE | 2018-06-14 14:30 | CONS ---
INFECTIOUS DISEASE CONSULTATION DATE OF CONSULTATION: DATE OF DICTATION: 06/14/2018 REASON FOR CONSULTATION: A 53-year-old female evaluated for sepsis. HISTORY OF PRESENT ILLNESS: History obtained entirely from chart as she cannot give history secondary to her mental state. The patient is a 53-year-old HIV-negative female who is apparently homeless and possibly an active IV drug user who was admitted with a 1-week history of fever, sweats, 15-pound weight loss and blood-streaked sputum. In the emergency room she was febrile to 101.5. CAT scan of the chest shows a nodular mass lesion in the right lower lobe as well as what is possibly a right upper lobe cavitary lesion. She was admitted to the ICU where she required BiPAP for respiratory insufficiency. She did not give any initial history. Her course has been complicated by leukopenia. She is empirically treated with vancomycin and Zosyn. Additional history is not available. 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 PAST MEDICAL HISTORY: Positive for COPD, asthma, coronary artery disease, chronic kidney disease, hepatitis C, infectious endocarditis, diabetes mellitus, hypertension. PAST SURGICAL HISTORY: Status post permanent pacemaker and valve replacements. ALLERGIES: CIPRO and SULFA. MEDICATIONS: Include Solu-Medrol, , Ventolin, DuoNeb, NovoLog, Hibiclens. SOCIAL HISTORY: As per HPI. According to the notes she has a history of injection drug use, possibly active use. Positive history of tobacco use. She is HIV-negative upon this admission. SYSTEMS REVIEW: Neurologic: Positive for lethargy. No reported loss of consciousness, seizure activity or focal weakness.Cardiac: As per HPI. Respiratory: As per HPI. Gastrointestinal: Negative vomiting or diarrhea. Genitourinary: Negative for urinary tract infection. LABORATORY DATA: White count 3.5, previously 5.3, 72% neutrophils, hematocrit 34, platelets 119. BUN 10, creatinine 0.9. Urinalysis negative. Lactic acid 0.9. CAT scan as described. PHYSICAL EXAMINATION:General: She is lethargic on BiPAP. Vital Signs: T-Max is 101.4, blood pressure 111/70, pulse 67 and regular, respirations 22 per minute. HEENT: Sclerae anicteric. Heart Sounds: S1, S2. Lungs: Decreased breath sounds bilaterally. Abdomen: Soft. No tenderness elicited. No mass, rebound or rigidity. Extremities: Negative for edema. Negative Homans sign. No infected skin wounds noted. IMPRESSION: A 53-year-old human immunodeficiency virus negative female reportedly homeless and an active intravenous drug user admitted with a 1-week history of fevers, sweats, weight loss, blood-streaked sputum. CAT scan with mass lesion, right lower lobe and possibly cavitary lesion right upper lobe 1. Acute exacerbation chronic obstructive pulmonary disease. 2. Possible lung neoplasm. 3. Possible pulmonary tuberculosis. 4. Rule out endocarditis. 5. Valve replacements by history. Will place on AFB isolation, obtain QuantiFERON, sputum for AFB and PCR, sputum cytology, blood cultures, empiric antibiotic coverage with vancomycin and cefepime pending workup. Will follow. Thank you for your kind referral. CHANTEL ALVAREZ M.D. [id number]
--- NOTE | 2018-06-14 14:54 | PN ---
Physical Exam: SUBJECTIVE: Patient seen and examined on BiPAP ; with acute on chronic respiratory acidosis; intermittent somnolence, AAOx2; not aware of year OBJECTIVE: Vital Signs Period Temp Pulse Resp BP Sys/[place] Pulse Ox Last 24 Hr 97.3 F-101.4 F 66-122 17-25 91-140/63-92 87-100 GENERAL: The patient is lethargic, on BiPAP HEAD: Normal with no signs of trauma. LUNGS: decreased breath sounds, scattered wheeze HEART: Regular rate and rhythm, S1, S2 without murmur, rub or gallop. ABDOMEN: Soft, nontender, nondistended, normoactive bowel sounds, no guarding, no rebound, no hepatosplenomegaly, no masses. EXTREMITIES: 2+ pulses, warm, well-perfused, no edema. NEUROLOGICAL:AAOx 2; weak and lethargic; not able to assess; strength, reflexes ; sensation intact SKIN: Warm, dry, normal turgor, no rashes or lesions noted Laboratory Results - last 24 hr 06/13/18 06/13/18 06/13/18 17:55 17:55 17:55 WBC 5.3 RBC 3.62 Hgb 11.5 Hct 34.7 MCV 95.8 MCH 31.7 MCHC 33.0 RDW 14.2 Plt Count 156 MPV 8.9 Absolute Neuts (auto) 3.9 Neutrophils % 72.8 Lymphocytes % 17.5 Monocytes % 7.6 Eosinophils % 1.7 Basophils % 0.4 Nucleated RBC % 0 PT with INR 11.50 INR 0.97 PTT (Actin FS) 29.7 Anticoagulation Therapy Puncture Site ABG pH ABG pCO2 at Pt Temp ABG pO2 at Pt Temp ABG HCO3 ABG O2 Sat (Measured) ABG O2 Content ABG Base Excess Alhaji Test VBG pH 7.30 L POC VBG pCO2 67.3 H* POC VBG pO2 28.3 Mixed VBG HCO3 No Result Required. Carboxyhemoglobin Methemoglobin O2 Delivery Device Oxygen Flow Rate Vent Mode Vent Rate Mechanical Rate PEEP Pressure Support Vent Sodium Potassium Chloride Carbon Dioxide Anion Gap BUN Creatinine Creat Clearance w eGFR POC Glucometer Random Glucose Lactic Acid Calcium Phosphorus Magnesium Total Bilirubin AST ALT Alkaline Phosphatase Creatine Kinase Troponin I C-Reactive Protein B-Natriuretic Peptide Total Protein Albumin Lipase Urine Color Urine Appearance Urine pH Ur Specific [place] Urine Protein Urine Glucose (UA) Urine Ketones Urine Blood Urine Nitrite Urine Bilirubin Urine Urobilinogen Ur Leukocyte Esterase Opiates Screen Methadone Screen Barbiturate Screen Phencyclidine Screen Ur Amphetamines Screen MDMA (Ecstasy) Screen Benzodiazepines Screen Cocaine Screen U Marijuana (THC) Screen HIV 1&2 Antibody Screen HIV P24 Antigen Blood Type Antibody Screen 06/13/18 06/13/18 06/13/18 17:55 17:55 18:00 WBC RBC Hgb Hct MCV MCH MCHC RDW Plt Count MPV Absolute Neuts (auto) Neutrophils % Lymphocytes % Monocytes % Eosinophils % Basophils % Nucleated RBC % PT with INR INR PTT (Actin FS) Anticoagulation Therapy Puncture Site ABG pH ABG pCO2 at Pt Temp ABG pO2 at Pt Temp ABG HCO3 ABG O2 Sat (Measured) ABG O2 Content ABG Base Excess Alhaji Test VBG pH POC VBG pCO2 POC VBG pO2 Mixed VBG HCO3 Carboxyhemoglobin Methemoglobin O2 Delivery Device Oxygen Flow Rate Vent Mode Vent Rate Mechanical Rate PEEP Pressure Support Vent Sodium 139 Potassium 5.9 H Chloride 102 Carbon Dioxide 31 Anion Gap 6 L BUN 11 Creatinine 0.8 Creat Clearance w eGFR > 60 POC Glucometer Random Glucose 150 H Lactic Acid 1.4 Calcium 9.3 Phosphorus 3.4 Magnesium 1.5 L Total Bilirubin 0.2 AST 15 ALT 28 Alkaline Phosphatase 56 Creatine Kinase 45 Troponin I < 0.02 C-Reactive Protein 2.4 H B-Natriuretic Peptide 1589.7 H Cancelled Total Protein 6.9 Albumin 3.1 L Lipase 90 Urine Color Urine Appearance Urine pH Ur Specific [place] Urine Protein Urine Glucose (UA) Urine Ketones Urine Blood Urine Nitrite Urine Bilirubin Urine Urobilinogen Ur Leukocyte Esterase Opiates Screen Methadone Screen Barbiturate Screen Phencyclidine Screen Ur Amphetamines Screen MDMA (Ecstasy) Screen Benzodiazepines Screen Cocaine Screen U Marijuana (THC) Screen HIV 1&2 Antibody Screen HIV P24 Antigen Blood Type Antibody Screen 06/13/18 06/13/18 06/13/18 19:00 19:00 19:00 WBC RBC Hgb Hct MCV MCH MCHC RDW Plt Count MPV Absolute Neuts (auto) Neutrophils % Lymphocytes % Monocytes % Eosinophils % Basophils % Nucleated RBC % PT with INR INR PTT (Actin FS) Anticoagulation Therapy No Result Required. Puncture Site Right radial ABG pH 7.29 L ABG pCO2 at Pt Temp 63.9 H* ABG pO2 at Pt Temp 87.5 ABG HCO3 29.9 H ABG O2 Sat (Measured) 96.8 ABG O2 Content 15.3 ABG Base Excess 2.5 H Alhaji Test No Result Required. VBG pH POC VBG pCO2 POC VBG pO2 Mixed VBG HCO3 Carboxyhemoglobin 3.0 H Methemoglobin 1.5 O2 Delivery Device Nasal Oxygen Flow Rate 3 Vent Mode No Result Required. Vent Rate No Result Required. Mechanical Rate No Result Required. PEEP Pressure Support Vent No Result Required. Sodium Potassium Chloride Carbon Dioxide Anion Gap BUN Creatinine Creat Clearance w eGFR POC Glucometer Random Glucose Lactic Acid 0.9 Calcium Phosphorus Magnesium Total Bilirubin AST ALT Alkaline Phosphatase Creatine Kinase Troponin I C-Reactive Protein B-Natriuretic Peptide Total Protein Albumin Lipase Urine Color Urine Appearance Urine pH Ur Specific [place] Urine Protein Urine Glucose (UA) Urine Ketones Urine Blood Urine Nitrite Urine Bilirubin Urine Urobilinogen Ur Leukocyte Esterase Opiates Screen Methadone Screen Barbiturate Screen Phencyclidine Screen Ur Amphetamines Screen MDMA (Ecstasy) Screen Benzodiazepines Screen Cocaine Screen U Marijuana (THC) Screen HIV 1&2 Antibody Screen HIV P24 Antigen Blood Type A NEGATIVE Antibody Screen Negative 06/13/18 06/13/18 06/13/18 19:00 22:05 23:25 WBC RBC Hgb Hct MCV MCH MCHC RDW Plt Count MPV Absolute Neuts (auto) Neutrophils % Lymphocytes % Monocytes % Eosinophils % Basophils % Nucleated RBC % PT with INR INR PTT (Actin FS) Anticoagulation Therapy No Result Required. Puncture Site No Result Required. ABG pH 7.20 L* ABG pCO2 at Pt Temp 68.7 H* ABG pO2 at Pt Temp 281.0 H* ABG HCO3 28.2 H ABG O2 Sat (Measured) 99.7 H* ABG O2 Content No Result Required. ABG Base Excess -0.1 Alhaji Test No Result Required. VBG pH POC VBG pCO2 POC VBG pO2 Mixed VBG HCO3 Carboxyhemoglobin Methemoglobin 1.7 H O2 Delivery Device No Result Required. Oxygen Flow Rate No Result Required. Vent Mode No Result Required. Vent Rate No Result Required. Mechanical Rate No Result Required. PEEP Pressure Support Vent No Result Required. Sodium Potassium Chloride Carbon Dioxide Anion Gap BUN Creatinine Creat Clearance w eGFR POC Glucometer Random Glucose Lactic Acid Calcium Phosphorus Magnesium Total Bilirubin AST ALT Alkaline Phosphatase Creatine Kinase Troponin I C-Reactive Protein B-Natriuretic Peptide Total Protein Albumin Lipase Urine Color Ltyellow Urine Appearance Clear Urine pH 5.0 Ur Specific [place] 1.028 Urine Protein Negative Urine Glucose (UA) Negative Urine Ketones Negative Urine Blood Negative Urine Nitrite Negative Urine Bilirubin Negative Urine Urobilinogen Negative Ur Leukocyte Esterase Negative Opiates Screen Methadone Screen Barbiturate Screen Phencyclidine Screen Ur Amphetamines Screen MDMA (Ecstasy) Screen Benzodiazepines Screen Cocaine Screen U Marijuana (THC) Screen HIV 1&2 Antibody Screen Negative HIV P24 Antigen Negative Blood Type Antibody Screen 06/13/18 06/14/18 06/14/18 23:25 00:30 01:45 WBC RBC Hgb Hct MCV MCH MCHC RDW Plt Count MPV Absolute Neuts (auto) Neutrophils % Lymphocytes % Monocytes % Eosinophils % Basophils % Nucleated RBC % PT with INR INR PTT (Actin FS) Anticoagulation Therapy No Result Required. Puncture Site Right radial ABG pH 7.25 L ABG pCO2 at Pt Temp 71.6 H* ABG pO2 at Pt Temp 206.0 H* ABG HCO3 29.9 H ABG O2 Sat (Measured) 99.8 H* ABG O2 Content 14.2 L ABG Base Excess 1.8 Alhaji Test Positive VBG pH POC VBG pCO2 POC VBG pO2 Mixed VBG HCO3 Carboxyhemoglobin Methemoglobin O2 Delivery Device Bipap Oxygen Flow Rate 60% Vent Mode No Result Required. Vent Rate 18 Mechanical Rate No Result Required. PEEP 0.0 Pressure Support Vent 10/5 Sodium Potassium Chloride Carbon Dioxide Anion Gap BUN Creatinine Creat Clearance w eGFR POC Glucometer Random Glucose Lactic Acid Calcium Phosphorus Magnesium Total Bilirubin AST ALT Alkaline Phosphatase Creatine Kinase Troponin I C-Reactive Protein B-Natriuretic Peptide Total Protein Albumin Lipase Urine Color Urine Appearance Urine pH Ur Specific [place] Urine Protein Urine Glucose (UA) Urine Ketones Urine Blood Urine Nitrite Urine Bilirubin Urine Urobilinogen Ur Leukocyte Esterase Opiates Screen Positive A* Methadone Screen Negative Barbiturate Screen Negative Phencyclidine Screen Negative Ur Amphetamines Screen Negative MDMA (Ecstasy) Screen Negative Benzodiazepines Screen Positive A* Cocaine Screen Negative U Marijuana (THC) Screen Negative HIV 1&2 Antibody Screen HIV P24 Antigen Blood Type A NEGATIVE Antibody Screen 06/14/18 06/14/18 06/14/18 01:45 03:30 05:30 WBC 3.5 L RBC 3.52 L Hgb 11.0 Hct 34.0 MCV 96.6 H MCH 31.3 MCHC 32.4 RDW 14.2 Plt Count 119 L D MPV 8.5 Absolute Neuts (auto) Neutrophils % Lymphocytes % Monocytes % Eosinophils % Basophils % Nucleated RBC % PT with INR INR PTT (Actin FS) Anticoagulation Therapy Puncture Site Right radial ABG pH 7.23 L* ABG pCO2 at Pt Temp 69.9 H* ABG pO2 at Pt Temp 104.0 H D ABG HCO3 28.5 H ABG O2 Sat (Measured) 98.2 ABG O2 Content 13.2 L ABG Base Excess 0.4 Alhaji Test Positive VBG pH POC VBG pCO2 POC VBG pO2 Mixed VBG HCO3 Carboxyhemoglobin Methemoglobin O2 Delivery Device Bipap Oxygen Flow Rate 40% Vent Mode S/t Vent Rate 18 Mechanical Rate PEEP 0.0 Pressure Support Vent 12/5 Sodium 139 Potassium 4.9 Chloride 105 Carbon Dioxide 32 Anion Gap 2 L BUN 11 Creatinine 0.9 Creat Clearance w eGFR > 60 POC Glucometer Random Glucose 151 H Lactic Acid Calcium 7.9 L Phosphorus Magnesium Total Bilirubin AST ALT Alkaline Phosphatase Creatine Kinase Troponin I C-Reactive Protein B-Natriuretic Peptide Total Protein Albumin Lipase Urine Color Urine Appearance Urine pH Ur Specific [place] Urine Protein Urine Glucose (UA) Urine Ketones Urine Blood Urine Nitrite Urine Bilirubin Urine Urobilinogen Ur Leukocyte Esterase Opiates Screen Methadone Screen Barbiturate Screen Phencyclidine Screen Ur Amphetamines Screen MDMA (Ecstasy) Screen Benzodiazepines Screen Cocaine Screen U Marijuana (THC) Screen HIV 1&2 Antibody Screen HIV P24 Antigen Blood Type Antibody Screen 06/14/18 06/14/18 06/14/18 05:30 06:00 11:19 WBC RBC Hgb Hct MCV MCH MCHC RDW Plt Count MPV Absolute Neuts (auto) Neutrophils % Lymphocytes % Monocytes % Eosinophils % Basophils % Nucleated RBC % PT with INR INR PTT (Actin FS) Anticoagulation Therapy No Result Required. Puncture Site Right radial ABG pH 7.24 L* ABG pCO2 at Pt Temp 67.0 H* ABG pO2 at Pt Temp 95.4 ABG HCO3 27.7 H ABG O2 Sat (Measured) 96.7 ABG O2 Content 17.6 ABG Base Excess -0.1 Alhaji Test Positive VBG pH POC VBG pCO2 POC VBG pO2 Mixed VBG HCO3 Carboxyhemoglobin Methemoglobin O2 Delivery Device No Result Required. Oxygen Flow Rate 40 Vent Mode No Result Required. Vent Rate 18 Mechanical Rate Bipp PEEP Pressure Support Vent 14/5 Sodium 138 Potassium 4.7 Chloride 104 Carbon Dioxide 30 Anion Gap 4 L BUN 10 Creatinine 0.9 Creat Clearance w eGFR > 60 POC Glucometer [phone] Random Glucose 234 H Lactic Acid Calcium 8.2 L Phosphorus 3.7 Magnesium 1.7 L Total Bilirubin AST ALT Alkaline Phosphatase Creatine Kinase Troponin I C-Reactive Protein B-Natriuretic Peptide Total Protein Albumin Lipase Urine Color Urine Appearance Urine pH Ur Specific [place] Urine Protein Urine Glucose (UA) Urine Ketones Urine Blood Urine Nitrite Urine Bilirubin Urine Urobilinogen Ur Leukocyte Esterase Opiates Screen Methadone Screen Barbiturate Screen Phencyclidine Screen Ur Amphetamines Screen MDMA (Ecstasy) Screen Benzodiazepines Screen Cocaine Screen U Marijuana (THC) Screen HIV 1&2 Antibody Screen HIV P24 Antigen Blood Type Antibody Screen Active Medications Generic Name Dose Route Start Last Admin Trade Name Freq PRN Reason Stop Dose Admin Albuterol Sulfate 1 amp 06/14/18 00:30 Ventolin 0.083% Nebulizer Soln - NEB Q4H PRN SHORTNESS OF BREATH Albuterol/Ipratropium 1 amp 06/14/18 02:00 06/14/18 10:00 Duoneb - NEB 1 amp RQID RANDAL Administration Chlorhexidine Gluconate 1 applic 06/14/18 22:00 Hibiclens For Decolonization - TP HS RANDAL Enoxaparin Sodium 40 mg 06/14/18 11:30 Lovenox - SQ DAILY RANDAL Vancomycin HCl 1 gm in 200 mls @ 133.333 mls/hr 06/14/18 15:00 Vancomycin 1 Gm Premix - IVPB Q12H RANDAL Protocol Cefepime HCl 1 gm/ Dextrose 100 mls @ 100 mls/hr 06/14/18 15:00 IVPB Q8H-IV RANDAL Protocol Insulin Aspart 1 vial 06/14/18 07:00 06/14/18 11:22 Novolog Vial Sliding Scale - SQ 6 units ACHS RANDAL Administration Protocol Methylprednisolone Sodium Succinate 60 mg 06/14/18 11:14 Solu-Medrol - IVPUSH Q8H-IV RANDAL Mupirocin 1 applic 06/14/18 10:00 06/14/18 10:57 Bactroban Ointment (For Decolonization) - NS 06/19/18 09:59 1 applic BID RANDAL Administration ASSESSMENT/PLAN: This is a 53 year old female with a history of valve replacement, pacemaker, endocarditis?, homeless, 1/2 pack day smoker who presented with symptoms of #Acute on chronic respiratory failure sec to COPD, possible PNA, r/o TB, cannot r/o lung CA -Respiratory acidosis #COPD #Sepsis sec to possible PNA #hx of hep C #CAD #HTN #DM #Smoker -Isolation precaution r/o TB -f/u quantifuron/sputum -on Bipap for respiratory acidosis/acute hypercapniec respiratory failure -f/u abg -wean o vent /fo2 -keep O2 88-92% -IV steroids -inhaled broncodilators -IV antibiotics -yolanda ID -insulin ss -echo r/o endocarditis -smoking cessation -dvt ppl Dispo: icu Visit type - Emergency Visit Emergency Visit: Yes ED Registration Date: 06/13/18 Care time: The patient presented to the Emergency Department on the above date and was hospitalized for further evaluation of their emergent condition. - New Patient This patient is new to me today: Yes Date on this admission: 06/15/18 - Critical Care Critical Care patient: Yes Total Critical Care Time (in minutes): 45 Critical Care Statement: The care of this patient involved high complexity decision making to prevent further life threatening deterioration of the patient 's condition and/or to evaluate & treat vital organ system(s) failure or risk of failure.
[2018-06-14] MEDS ORDERED: PT OWN MED DRAWER 7, Y5N ONE (15:23)
[2018-06-14] MEDS: CEFEPIME 1 GM in DEXTROSE 5%-WATER - 100 ML IVPB SCH ×2 (16:21→21:47)
[2018-06-14] MEDS: VANCOMYCIN 1 GM PREMIX - 1 GM/200 ML BAG IVPB SCH ×2 (16:23→16:24)
--- NOTE | 2018-06-14 18:39 | PN ---
Physical Exam: SUBJECTIVE: Patient seen and examined, on bipap, conversant, denies any pain, however unable to give further history OBJECTIVE: Vital Signs Period Temp Pulse Resp BP Sys/Maldonado Pulse Ox Last 24 Hr 97.3 F-98.4 F 66-85 17-22 91-140/63-82 95-100 GENERAL: on bipap, responds to name, attempts to nod to conversation (improved mental status from AM per nursing) CVS;S1s2 regular, heart sounds obscured by breath sounds Chest: limited exam, patient unable to sit up or turn, decreased air entry Abdomen:Soft, NT, ND, positive bowel sounds Extremities: no edema neuro: eyes open, responds to name, moves all extremities, further exam limited Laboratory Results - last 24 hr 06/13/18 06/13/18 06/13/18 17:55 17:55 18:00 WBC RBC Hgb Hct MCV MCH MCHC RDW Plt Count MPV PT with INR 11.50 INR 0.97 PTT (Actin FS) 29.7 Anticoagulation Therapy Puncture Site ABG pH ABG pCO2 at Pt Temp ABG pO2 at Pt Temp ABG HCO3 ABG O2 Sat (Measured) ABG O2 Content ABG Base Excess Alhaji Test Carboxyhemoglobin Methemoglobin O2 Delivery Device Oxygen Flow Rate Vent Mode Vent Rate Mechanical Rate PEEP Pressure Support Vent Sodium 139 Potassium 5.9 H Chloride 102 Carbon Dioxide 31 Anion Gap 6 L BUN 11 Creatinine 0.8 Creat Clearance w eGFR > 60 POC Glucometer Random Glucose 150 H Lactic Acid 1.4 Calcium 9.3 Phosphorus 3.4 Magnesium 1.5 L Total Bilirubin 0.2 AST 15 ALT 28 Alkaline Phosphatase 56 Creatine Kinase 45 Troponin I < 0.02 C-Reactive Protein 2.4 H B-Natriuretic Peptide 1589.7 H Total Protein 6.9 Albumin 3.1 L Lipase 90 Urine Color Urine Appearance Urine pH Ur Specific [place] Urine Protein Urine Glucose (UA) Urine Ketones Urine Blood Urine Nitrite Urine Bilirubin Urine Urobilinogen Ur Leukocyte Esterase Opiates Screen Methadone Screen Barbiturate Screen Phencyclidine Screen Ur Amphetamines Screen MDMA (Ecstasy) Screen Benzodiazepines Screen Cocaine Screen U Marijuana (THC) Screen HIV 1&2 Antibody Screen HIV P24 Antigen Blood Type Antibody Screen 06/13/18 06/13/18 06/13/18 19:00 19:00 19:00 WBC RBC Hgb Hct MCV MCH MCHC RDW Plt Count MPV PT with INR INR PTT (Actin FS) Anticoagulation Therapy No Result Required. Puncture Site Right radial ABG pH 7.29 L ABG pCO2 at Pt Temp 63.9 H* ABG pO2 at Pt Temp 87.5 ABG HCO3 29.9 H ABG O2 Sat (Measured) 96.8 ABG O2 Content 15.3 ABG Base Excess 2.5 H Alhaji Test No Result Required. Carboxyhemoglobin 3.0 H Methemoglobin 1.5 O2 Delivery Device Nasal Oxygen Flow Rate 3 Vent Mode No Result Required. Vent Rate No Result Required. Mechanical Rate No Result Required. PEEP Pressure Support Vent No Result Required. Sodium Potassium Chloride Carbon Dioxide Anion Gap BUN Creatinine Creat Clearance w eGFR POC Glucometer Random Glucose Lactic Acid 0.9 Calcium Phosphorus Magnesium Total Bilirubin AST ALT Alkaline Phosphatase Creatine Kinase Troponin I C-Reactive Protein B-Natriuretic Peptide Total Protein Albumin Lipase Urine Color Urine Appearance Urine pH Ur Specific [place] Urine Protein Urine Glucose (UA) Urine Ketones Urine Blood Urine Nitrite Urine Bilirubin Urine Urobilinogen Ur Leukocyte Esterase Opiates Screen Methadone Screen Barbiturate Screen Phencyclidine Screen Ur Amphetamines Screen MDMA (Ecstasy) Screen Benzodiazepines Screen Cocaine Screen U Marijuana (THC) Screen HIV 1&2 Antibody Screen HIV P24 Antigen Blood Type A NEGATIVE Antibody Screen Negative 06/13/18 06/13/18 06/13/18 19:00 22:05 23:25 WBC RBC Hgb Hct MCV MCH MCHC RDW Plt Count MPV PT with INR INR PTT (Actin FS) Anticoagulation Therapy No Result Required. Puncture Site No Result Required. ABG pH 7.20 L* ABG pCO2 at Pt Temp 68.7 H* ABG pO2 at Pt Temp 281.0 H* ABG HCO3 28.2 H ABG O2 Sat (Measured) 99.7 H* ABG O2 Content No Result Required. ABG Base Excess -0.1 Alhaji Test No Result Required. Carboxyhemoglobin Methemoglobin 1.7 H O2 Delivery Device No Result Required. Oxygen Flow Rate No Result Required. Vent Mode No Result Required. Vent Rate No Result Required. Mechanical Rate No Result Required. PEEP Pressure Support Vent No Result Required. Sodium Potassium Chloride Carbon Dioxide Anion Gap BUN Creatinine Creat Clearance w eGFR POC Glucometer Random Glucose Lactic Acid Calcium Phosphorus Magnesium Total Bilirubin AST ALT Alkaline Phosphatase Creatine Kinase Troponin I C-Reactive Protein B-Natriuretic Peptide Total Protein Albumin Lipase Urine Color Ltyellow Urine Appearance Clear Urine pH 5.0 Ur Specific [place] 1.028 Urine Protein Negative Urine Glucose (UA) Negative Urine Ketones Negative Urine Blood Negative Urine Nitrite Negative Urine Bilirubin Negative Urine Urobilinogen Negative Ur Leukocyte Esterase Negative Opiates Screen Methadone Screen Barbiturate Screen Phencyclidine Screen Ur Amphetamines Screen MDMA (Ecstasy) Screen Benzodiazepines Screen Cocaine Screen U Marijuana (THC) Screen HIV 1&2 Antibody Screen Negative HIV P24 Antigen Negative Blood Type Antibody Screen 06/13/18 06/14/18 06/14/18 23:25 00:30 01:45 WBC RBC Hgb Hct MCV MCH MCHC RDW Plt Count MPV PT with INR INR PTT (Actin FS) Anticoagulation Therapy No Result Required. Puncture Site Right radial ABG pH 7.25 L ABG pCO2 at Pt Temp 71.6 H* ABG pO2 at Pt Temp 206.0 H* ABG HCO3 29.9 H ABG O2 Sat (Measured) 99.8 H* ABG O2 Content 14.2 L ABG Base Excess 1.8 Alhaji Test Positive Carboxyhemoglobin Methemoglobin O2 Delivery Device Bipap Oxygen Flow Rate 60% Vent Mode No Result Required. Vent Rate 18 Mechanical Rate No Result Required. PEEP 0.0 Pressure Support Vent 10/5 Sodium Potassium Chloride Carbon Dioxide Anion Gap BUN Creatinine Creat Clearance w eGFR POC Glucometer Random Glucose Lactic Acid Calcium Phosphorus Magnesium Total Bilirubin AST ALT Alkaline Phosphatase Creatine Kinase Troponin I C-Reactive Protein B-Natriuretic Peptide Total Protein Albumin Lipase Urine Color Urine Appearance Urine pH Ur Specific [place] Urine Protein Urine Glucose (UA) Urine Ketones Urine Blood Urine Nitrite Urine Bilirubin Urine Urobilinogen Ur Leukocyte Esterase Opiates Screen Positive A* Methadone Screen Negative Barbiturate Screen Negative Phencyclidine Screen Negative Ur Amphetamines Screen Negative MDMA (Ecstasy) Screen Negative Benzodiazepines Screen Positive A* Cocaine Screen Negative U Marijuana (THC) Screen Negative HIV 1&2 Antibody Screen HIV P24 Antigen Blood Type A NEGATIVE Antibody Screen 06/14/18 06/14/18 06/14/18 01:45 03:30 05:30 WBC 3.5 L RBC 3.52 L Hgb 11.0 Hct 34.0 MCV 96.6 H MCH 31.3 MCHC 32.4 RDW 14.2 Plt Count 119 L D MPV 8.5 PT with INR INR PTT (Actin FS) Anticoagulation Therapy Puncture Site Right radial ABG pH 7.23 L* ABG pCO2 at Pt Temp 69.9 H* ABG pO2 at Pt Temp 104.0 H D ABG HCO3 28.5 H ABG O2 Sat (Measured) 98.2 ABG O2 Content 13.2 L ABG Base Excess 0.4 Alhaji Test Positive Carboxyhemoglobin Methemoglobin O2 Delivery Device Bipap Oxygen Flow Rate 40% Vent Mode S/t Vent Rate 18 Mechanical Rate PEEP 0.0 Pressure Support Vent 12/5 Sodium 139 Potassium 4.9 Chloride 105 Carbon Dioxide 32 Anion Gap 2 L BUN 11 Creatinine 0.9 Creat Clearance w eGFR > 60 POC Glucometer Random Glucose 151 H Lactic Acid Calcium 7.9 L Phosphorus Magnesium Total Bilirubin AST ALT Alkaline Phosphatase Creatine Kinase Troponin I C-Reactive Protein B-Natriuretic Peptide Total Protein Albumin Lipase Urine Color Urine Appearance Urine pH Ur Specific [place] Urine Protein Urine Glucose (UA) Urine Ketones Urine Blood Urine Nitrite Urine Bilirubin Urine Urobilinogen Ur Leukocyte Esterase Opiates Screen Methadone Screen Barbiturate Screen Phencyclidine Screen Ur Amphetamines Screen MDMA (Ecstasy) Screen Benzodiazepines Screen Cocaine Screen U Marijuana (THC) Screen HIV 1&2 Antibody Screen HIV P24 Antigen Blood Type Antibody Screen 06/14/18 06/14/18 06/14/18 05:30 06:00 11:19 WBC RBC Hgb Hct MCV MCH MCHC RDW Plt Count MPV PT with INR INR PTT (Actin FS) Anticoagulation Therapy No Result Required. Puncture Site Right radial ABG pH 7.24 L* ABG pCO2 at Pt Temp 67.0 H* ABG pO2 at Pt Temp 95.4 ABG HCO3 27.7 H ABG O2 Sat (Measured) 96.7 ABG O2 Content 17.6 ABG Base Excess -0.1 Alhaji Test Positive Carboxyhemoglobin Methemoglobin O2 Delivery Device No Result Required. Oxygen Flow Rate 40 Vent Mode No Result Required. Vent Rate 18 Mechanical Rate Bipp PEEP Pressure Support Vent 14/5 Sodium 138 Potassium 4.7 Chloride 104 Carbon Dioxide 30 Anion Gap 4 L BUN 10 Creatinine 0.9 Creat Clearance w eGFR > 60 POC Glucometer 252.05230 Random Glucose 234 H Lactic Acid Calcium 8.2 L Phosphorus 3.7 Magnesium 1.7 L Total Bilirubin AST ALT Alkaline Phosphatase Creatine Kinase Troponin I C-Reactive Protein B-Natriuretic Peptide Total Protein Albumin Lipase Urine Color Urine Appearance Urine pH Ur Specific [place] Urine Protein Urine Glucose (UA) Urine Ketones Urine Blood Urine Nitrite Urine Bilirubin Urine Urobilinogen Ur Leukocyte Esterase Opiates Screen Methadone Screen Barbiturate Screen Phencyclidine Screen Ur Amphetamines Screen MDMA (Ecstasy) Screen Benzodiazepines Screen Cocaine Screen U Marijuana (THC) Screen HIV 1&2 Antibody Screen HIV P24 Antigen Blood Type Antibody Screen 06/14/18 17:08 WBC RBC Hgb Hct MCV MCH MCHC RDW Plt Count MPV PT with INR INR PTT (Actin FS) Anticoagulation Therapy Puncture Site ABG pH ABG pCO2 at Pt Temp ABG pO2 at Pt Temp ABG HCO3 ABG O2 Sat (Measured) ABG O2 Content ABG Base Excess Alhaji Test Carboxyhemoglobin Methemoglobin O2 Delivery Device Oxygen Flow Rate Vent Mode Vent Rate Mechanical Rate PEEP Pressure Support Vent Sodium Potassium Chloride Carbon Dioxide Anion Gap BUN Creatinine Creat Clearance w eGFR POC Glucometer [phone] Random Glucose Lactic Acid Calcium Phosphorus Magnesium Total Bilirubin AST ALT Alkaline Phosphatase Creatine Kinase Troponin I C-Reactive Protein B-Natriuretic Peptide Total Protein Albumin Lipase Urine Color Urine Appearance Urine pH Ur Specific [place] Urine Protein Urine Glucose (UA) Urine Ketones Urine Blood Urine Nitrite Urine Bilirubin Urine Urobilinogen Ur Leukocyte Esterase Opiates Screen Methadone Screen Barbiturate Screen Phencyclidine Screen Ur Amphetamines Screen MDMA (Ecstasy) Screen Benzodiazepines Screen Cocaine Screen U Marijuana (THC) Screen HIV 1&2 Antibody Screen HIV P24 Antigen Blood Type Antibody Screen Active Medications Generic Name Dose Route Start Last Admin Trade Name Freq PRN Reason Stop Dose Admin Albuterol Sulfate 1 amp 06/14/18 00:30 Ventolin 0.083% Nebulizer Soln - NEB Q4H PRN SHORTNESS OF BREATH Albuterol/Ipratropium 1 amp 06/14/18 02:00 06/14/18 16:30 Duoneb - NEB 1 amp RQID RANDAL Administration Chlorhexidine Gluconate 1 applic 06/14/18 22:00 Hibiclens For Decolonization - TP HS RANDAL Enoxaparin Sodium 40 mg 06/14/18 11:30 06/14/18 14:00 Lovenox - SQ 40 mg DAILY RANDAL Administration Vancomycin HCl 1 gm in 200 mls @ 133.333 mls/hr 06/14/18 15:00 06/14/18 16:23 Vancomycin 1 Gm Premix - IVPB Not Given Q12H [facility] Protocol Cefepime HCl 1 gm/ Dextrose 100 mls @ 100 mls/hr 06/14/18 15:00 06/14/18 16: 21 IVPB 100 mls/hr Q8H-IV RANDAL Administration Protocol Vancomycin HCl 1 gm in 200 mls @ 133.333 mls/hr 06/14/18 16:00 06/14/18 16:24 Vancomycin 1 Gm Premix - IVPB 133.333 mls/hr Q12H RANDAL Administration Protocol Insulin Aspart 1 vial 06/14/18 07:00 06/14/18 17:09 Novolog Vial Sliding Scale - SQ 2 units ACHS RANDAL Administration Protocol Methylprednisolone Sodium Succinate 60 mg 06/14/18 11:14 06/14/18 17:01 Solu-Medrol - IVPUSH 60 mg Q8H-IV RANDAL Administration Mupirocin 1 applic 06/14/18 10:00 06/14/18 10:57 Bactroban Ointment (For Decolonization) - NS 06/19/18 09:59 1 applic BID RANDAL Administration Microbiology 06/13/18 18:00 Blood - Peripheral Venous Blood Culture - Preliminary NO GROWTH OBTAINED AFTER 24 HOURS, INCUBATION TO CONTINUE FOR 4 DAYS. 06/13/18 17:55 Blood - Peripheral Venous Blood Culture - Preliminary NO GROWTH OBTAINED AFTER 24 HOURS, INCUBATION TO CONTINUE FOR 4 DAYS. 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 -Acute hypoxic/hypercapneic respiratory failure -Acute COPD exacerbation -Sepsis, r/o endocarditis -PNA -s/p PPM -MItral/Tricuspid valve replacements, ?h/o infective endocarditis -IVDA with heroine -?PE -COPD Plan: Bipap. ID input noted. cefepime/vancomycin, PNA studies. 2D echo. AFB isolation Sputum AFB/PCR Sputum cytology Quantiferon Blood c/s Empiric vancomycin/ cefepime Detox consult when medical issues improve. Drug screen noted. Retrieve prior information. [id number] Dispo ICU level of care. Visit type - Emergency Visit Emergency Visit: Yes ED Registration Date: 06/13/18 Care time: The patient presented to the Emergency Department on the above date and was hospitalized for further evaluation of their emergent condition. - New Patient This patient is new to me today: Yes Date on this admission: 06/14/18 - Critical Care Critical Care patient: Yes Total Critical Care Time (in minutes): 35 Critical Care Statement: The care of this patient involved high complexity decision making to prevent further life threatening deterioration of the patient 's condition and/or to evaluate & treat vital organ system(s) failure or risk of failure. - Discharge Referral Referred to [facility] Med P.C.: No
[2018-06-14 19:42] LABS: ARTERIAL BLD GAS O2 SATURATION 95.7 % (90-98.9); ARTERIAL BLOOD GAS PCO2 42.9 mmHg (35-45); ARTERIAL BLOOD GAS PO2 74.7 mmHg (80-100)
[2018-06-14 19:43] LABS: ALLENS TEST POSITIVE; ARTERIAL BLOOD GAS BASE EXCESS 1.8 meq/l (-2-2)
[2018-06-14] MEDS ORDERED: VANCOMYCIN 1,000 MG in DEXTROSE 5%-WATER - 250 ML IVPB ONE (20:00)
[2018-06-14] MEDS: CHLORHEXIDINE GLUCONATE 4% CLEANSER FOR DECOLONIZATION TP SCH (21:48)
[2018-06-15] MEDS: CEFEPIME 1 GM in DEXTROSE 5%-WATER - 100 ML IVPB SCH ×3 (02:35→19:10)
[2018-06-15] MEDS ORDERED: diphenhydrAMINE HCL 25 MG CAPSULE (FP) PO ONE (03:27)
[2018-06-15] MEDS: VANCOMYCIN 1 GM PREMIX - 1 GM/200 ML BAG IVPB SCH ×3 (04:02→17:27)
[2018-06-15] MEDS: methylPREDNISolone NA SUCC 125 MG/2 ML VIAL IVPUSH SCH ×3 (04:02→17:39)
[2018-06-15] MEDS: INSULIN SLIDING SCALE (NOVOLOG) 1 VIAL SQ SCH ×4 (06:27→21:56)
--- NOTE | 2018-06-15 06:31 | EKG ---
Test Reason : Blood Pressure : / mmHG Vent. Rate : 103 BPM Atrial Rate : 103 BPM P-R Int : 000 ms QRS Dur : 128 ms QT Int : 392 ms P-R-T Axes : 071 128 079 degrees QTc Int : 513 ms POOR DATA QUALITY, INTERPRETATION MAY BE ADVERSELY AFFECTED Ventricular-paced rhythm Biventricular pacemaker detected ABNORMAL ECG NO PREVIOUS ECGS AVAILABLE Confirmed by COSMO DELGADO MD ([id number]) on 06/15/2018 6:31:14 AM Referred By: Confirmed By:COSMO DELGADO MD
--- NOTE | 2018-06-15 06:46 | CON.CARD ---
Consult Consult Specialty:: cardiology Reason for Consultation:: respiratory distress; sepsis; hx CAD, valve replacements, PPM - History of Present Illness Chief Complaint: Pt alert; c/o SOB, asks "what's wrong with me?" History of Present Illness: 53 yo white woman with a hx of COPD, cardiac valve replacments (2010 at [facility]; denies CABG), PPM, Asthma, PE, multiple episodes of PNA, Hep C, endocarditis, T2DM, HTN, CAD, pacemaker, kidney disease, s/p IV heroin abuse ( quit when had valves replaced in 2010), s/p fall (non-syncopal)-->broken femur and wrist 2014, anxiety is here with a week of subjective fevers, unintentional 15 ib weight loss, night sweats, productive cough with blood streaked sputum, watery diarrhea, throat pain, SOB and extreme difficulty breathing. She admits to a hx of prior IV drug use with heroin. She also endorses chronic headaches and back pain. She denies a hx of HIV - She has verbally consented to be tested for HIV - History Source History Provided By: Patient, Medical Record Limitations to Obtaining History: Other (respiratory distress; on BIPAP mask) - Past Medical History Cardio/Vascular: Yes: CAD, CHF, HTN, Other (mitral valve replacement) Reproductive: Yes: Postmenopausal ...: No Psych: Yes: Anxiety - Past Surgical History Past Surgical History: Yes: Permanent Pacemaker, Valve Replacement (mitral and ? tricuspid 2010 at [facility]) - Alcohol/Substance Use Hx Alcohol Use: No - Smoking History Smoking history: Current every day smoker Have you smoked in the past 12 months: Yes Aproximately how many cigarettes per day: 40 Home Medications - Allergies Allergies/Adverse Reactions: Allergies Allergy/AdvReac Type Severity Reaction Status Date / Time ciprofloxacin [From Cipro] Allergy Verified 06/13/18 16:59 Sulfa (Sulfonamide Allergy Verified 06/13/18 16:59 Antibiotics) - Home Medications Home Medications: Ambulatory Orders Albuterol 2.5/Ipratropium 0.5 [Duoneb -] 1 neb IH QID 06/15/18 Alendronate Sodium [Binosto] 70 mg PO DAILY 06/15/18 Aspirin [ASA -] 81 mg PO DAILY 06/15/18 Aspirin [Aspirin EC] 81 mg PO DAILY 06/15/18 Atorvastatin Ca [Lipitor] 20 mg PO DAILY 06/15/18 Atorvastatin Ca [Lipitor] 20 mg PO HS 06/15/18 Clonazepam [Klonopin] 2 mg PO BID 06/15/18 Fluoxetine HCl 40 mg PO DAILY 06/15/18 Fluoxetine HCl [Prozac] 40 mg PO DAILY 06/15/18 Fluticasone/Vilanterol [Breo Ellipta 200-25 Mcg INH] 200 mcg IH QID PRN Gabapentin 400 mg PO TID 06/15/18 Gabapentin 400 mg PO TID 06/15/18 Insulin (LOG) Aspart [NovoLOG -] 6 units SQ TID 06/15/18 Insulin Glargine,Hum.rec.anlog [Lantus] 30 unit SQ HS 06/15/18 Ipratropium/Albuterol Sulfate [Combivent Respimat Inhal [place]] 4 gm IH Q6H PRN 06/15/18 Levothyroxine [Synthroid -] 100 mcg PO DAILY 06/15/18 Levothyroxine [Synthroid -] 100 mcg PO DAILY 06/15/18 Lurasidone HCl [Latuda -] 80 mg PO DAILY 06/15/18 Lurasidone HCl [Latuda] 80 mg PO DAILY 06/15/18 Methadone [Dolophine -] 10 mg PO TID 06/15/18 Montelukast Na [Singulair -] 10 mg PO HS 06/15/18 Omeprazole Magnesium [Prilosec Otc] 20 mg PO DAILY 06/15/18 Pregabalin [Lyrica] 100 mg PO BID 06/15/18 Roflumilast [Daliresp] 500 mcg PO DAILY 06/15/18 Tiotropium [place] [Spiriva Respimat] 4 gm IH Q6H 06/15/18 Zolpidem Tartrate [Ambien] 5 mg PO DAILY 06/15/18 predniSONE [Deltasone -] 20 mg PO DAILY 06/15/18 Family Disease History - Family Disease History Family Disease History: Heart Disease: Father (PR age 60; ICD; 75 yo) Review of Systems - Review of Systems Constitutional: reports: Weakness Eyes: reports: No Symptoms HENT: reports: No Symptoms Neck: reports: No Symptoms Cardiovascular: reports: Shortness of Breath Respiratory: reports: SOB Gastrointestinal: reports: No Symptoms Genitourinary: reports: No Symptoms Breasts: reports: No Symptoms Reported Musculoskeletal: reports: Muscle Pain, Muscle Weakness - Risk Factors Known Risk Factors: Yes: Age, Physical Inactivity, Smoking, Other (cardiac valve replacement) Vital Signs: Vital Signs Temperature 98.2 F 06/15/18 04:00 Pulse Rate 22 L 06/15/18 06:00 Respiratory Rate 22 H 06/15/18 06:00 Blood Pressure 133/81 06/15/18 06:00 O2 Sat by Pulse Oximetry (%) 100 06/14/18 20:00 Constitutional: Yes: Anxious Eyes: Yes: WNL HENT: Yes: WNL Neck: Yes: WNL Respiratory: Yes: Diminished Gastrointestinal: Yes: Soft Renal/: No: Anuria Cardiovascular: Yes: Other (S2 split) JVD: No Carotid Bruit: No PMI: Non-Displaced Heart Sounds: Yes: S1, Split S2 Murmur: Yes: Systolic Murmur (2/6 systolic murmur, RSB-->base) Edema: No Peripheral Pulses WNL: Yes Neurological: Yes: Alert, Oriented, Weakness Psychiatric: Yes: Alert, Oriented, Other (anxious) - Other Data Labs, Other Data: CBC, BMP 06/14/18 05:30 06/14/18 05:30 INR, PTT INR 0.97 (0.83-1.09) 06/13/18 17:55 Imaging - Results Chest X-ray: Image Reviewed (no acute pathology) EKG: Image Reviewed (ventricular pacing) Problem List - Problems (1) Leukopenia Assessment/Plan: f/u with ID Code(s): D72.819 - DECREASED WHITE BLOOD CELL COUNT, UNSPECIFIED (2) Hypomagnesemia Assessment/Plan: replete Mg; f/u all electrolytes. Code(s): E83.42 - HYPOMAGNESEMIA (3) Acute chronic obstructive pulmonary disease with respiratory distress Code(s): J44.9 - CHRONIC OBSTRUCTIVE PULMONARY DISEASE, UNSPECIFIED; R06.03 - ACUTE RESPIRATORY DISTRESS (4) CHF (congestive heart failure) Assessment/Plan: + JVD elevated NT BNP F/u ECHO Replete electrolytes BUN/Cr, Is and Os, daily weight. Code(s): I50.9 - HEART FAILURE, UNSPECIFIED (5) CAD (coronary artery disease) Assessment/Plan: f/u 2011 open heart surgery report: hx ?2 valves replaced; denies CABG or stents , but pt admits her memory is "not very good right now" Code(s): I25.10 - ATHSCL HEART DISEASE OF [place] CORONARY ARTERY W/O ANG PCTRS (6) Heart valve replaced Assessment/Plan: f/u records of prior cardiac surgery, valve replacement(s) 2010 at [facility]. ECHO for LVEF, valve status, chamber sizes, wall motion; r/o pericardial effusion. Leukopenic; in respiratory distress. 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 Code(s): R91.1 - SOLITARY PULMONARY NODULE (9) [place] cardiac risk >20% in next 10 years Assessment/Plan: f/u cardiac records for coronary artery anatomy/?lesions. Pt is followed at [facility] (PMD, garment liner, EP). Code(s): Z91.89 - OT PERSONAL RISK FACTORS, NOT ELSEWHERE CLASSIFIED
[2018-06-15] MEDS: ALBUTEROL SO4 2.5/IPRATROPIUM 0.5 INH SOL 3 ML VIAL.NEB. NEB SCH ×4 (07:25→20:30)
[2018-06-15 08:25] LABS: HEMATOCRIT 31.7 % (32.4-45.2); HEMOGLOBIN 10.4 GM/dL (10.7-15.3); MCH 30.9 pg (25.7-33.7); MCHC 32.8 g/dl (32.0-36.0); MEAN CELL VOLUME 94.4 fl (80-96); MEAN PLT VOLUME 8.4 fl (7.5-11.1); PLATELET COUNT 149 K/MM3 (134-434); RBC 3.36 M/mm3 (3.60-5.2); RDW 13.8 % (11.6-15.6); WHITE BLOOD COUNT 7.7 K/mm3 (4.0-10.0)
[2018-06-15 09:20] LABS: ANION GAP 6 MMOL/L (8-16); BLOOD UREA NITROGEN 23 mg/dL (7-18); CALCIUM 8.9 mg/dL (8.5-10.1); CHLORIDE 102 mmol/L (98-107); CHOLESTEROL 150 mg/dL (50-200); CO2 30 mmol/L (21-32); CREATININE 0.8 mg/dL (0.55-1.3); GLUCOSE,RANDOM 139 mg/dL (74-106); HDL CHOLESTEROL 53 mg/dL (40-60); PHOSPHOROUS 3.7 mg/dL (2.5-4.9); POTASSIUM 4.6 mmol/L (3.5-5.1); SODIUM 138 mmol/L (136-145); TRIGLYCERIDES 115 mg/dL (0-150)
[2018-06-15] MEDS ORDERED: PT OWN MED DRAWER 7, Y5N ONE (09:33)
[2018-06-15] MEDS: ENOXAPARIN NA (PORCINE) 40 MG/0.4 ML DISP.SYRIN SQ SCH (09:45)
[2018-06-15] MEDS: MUPIROCIN 2% TOPICAL OINTMENT FOR DECOLONIZATION NS SCH (09:45)
[2018-06-15] MEDS ORDERED: FLU VACCINE QUAD 60 MCG/0.5 ML (MDV 18-19) IM ONE (10:00)
[2018-06-15] MEDS: clonazePAM 0.5 MG TABLET PO SCH ×2 (11:43→21:17)
[2018-06-15] MEDS: ASPIRIN 81 MG CHEWABLE TABLETS PO SCH (11:44)
[2018-06-15] MEDS: LEVOTHYROXINE NA 100 MCG TABLET (FP) PO SCH (11:45)
--- NOTE | 2018-06-15 12:09 | PN ---
Teaching Attending Note Name of Resident: Aria Troncoso ATTENDING PHYSICIAN STATEMENT I saw and evaluated the patient. I reviewed the resident's note and discussed the case with the resident. I agree with the resident's findings and plan as documented. SUBJECTIVE: Pt seen and examined in the ICU. Respiratory status much improved. Off BiPAP on nasal cannula. No further fevers. OBJECTIVE: Vital Signs Period Temp Pulse Resp BP Sys/Maldonado Pulse Ox Last 24 Hr 97.6 F-98.4 F 22-96 22-23 106-138/66-98 95-100 Intake & Output 06/12/18 06/13/18 06/14/18 06/15/18 23:59 23:59 23:59 23:59 Intake Total 490 540 Output Total 1100 400 Balance -610 140 Weight 51.256 kg 61.235 kg Gen: NAD at rest Heart: RRR Lung: scattered rhonchi Abd: soft, nontender Ext: no edema CBC, BMP 06/15/18 08:00 06/15/18 08:00 Active Medications Albuterol Sulfate (Ventolin 0.083% Nebulizer Soln -) 1 amp NEB Q4H PRN PRN Reason: SHORTNESS OF BREATH Albuterol/Ipratropium (Duoneb -) 1 amp NEB RQID [facility] Last Admin: 06/15/18 07:25 Dose: 1 amp Aspirin (Asa -) 81 mg PO DAILY [facility] Last Admin: 06/15/18 11:44 Dose: 81 mg Atorvastatin Calcium (Lipitor -) 20 mg PO HS [facility] Chlorhexidine Gluconate (Hibiclens For Decolonization -) 1 applic TP HS [facility] Last Admin: 06/14/18 21:48 Dose: 1 applic Clonazepam (Klonopin -) 2 mg PO BID [facility] Last Admin: 06/15/18 11:43 Dose: 2 mg Enoxaparin Sodium (Lovenox -) 40 mg SQ DAILY [facility] Last Admin: 06/15/18 09:45 Dose: 40 mg Fluoxetine HCl (Prozac -) 40 mg PO DAILY [facility] Gabapentin (Neurontin -) 400 mg PO TID [facility] Cefepime HCl 1 gm/ Dextrose 100 mls @ 100 mls/hr IVPB Q8H-IV RANDAL; Protocol Last Admin: 06/15/18 11:45 Dose: 100 mls/hr Vancomycin HCl (Vancomycin 1 Gm Premix -) 1 gm in 200 mls @ 133.333 mls/hr IVPB Q12H [facility]; Protocol Last Admin: 06/15/18 04:14 Dose: 133.333 mls/hr Insulin Aspart (Novolog Vial Sliding Scale -) 1 vial SQ ACHS [facility]; Protocol Last Admin: 06/15/18 11:56 Dose: 8 units Levothyroxine Sodium (Synthroid -) 100 mcg PO ACBK RANDAL Last Admin: 06/15/18 11:45 Dose: 100 mcg Lurasidone HCl (Latuda -) 80 mg PO DAILY [facility] Methylprednisolone Sodium Succinate (Solu-Medrol -) 60 mg IVPUSH Q8H-IV RANDAL Last Admin: 06/15/18 09:46 Dose: 60 mg Montelukast Sodium (Singulair -) 10 mg PO HS RANDAL Mupirocin (Bactroban Ointment (For Decolonization) -) 1 applic NS BID RANDAL Stop: 06/19/18 09:59 Last Admin: 06/15/18 09:45 Dose: 1 applic ASSESSMENT AND PLAN: Acute on Chronic Hypoxic and Hypercapneic Respiratory Failure improving Acute COPD Exacerbation Pneumonia Hemoptysis Sepsis CAD HTN DM Hep C - continue medrol, can decrease to 40mg q8h - inhaled bronchodilators - O2 to keep SpO2 >90% - BiPAP as needed - f/u quantiferon - continue antibiotics - f/u cultures - send urine antigens - can monitor on floor critical care time spent in reviewing chart, evaluating patient and formulating plan 35 min
--- NOTE | 2018-06-15 12:19 | PN ---
Progress Note, Physician - Current Medication List Current Medications: Active Medications Albuterol Sulfate (Ventolin 0.083% Nebulizer Soln -) 1 amp NEB Q4H PRN PRN Reason: SHORTNESS OF BREATH Albuterol/Ipratropium (Duoneb -) 1 amp NEB RQID [facility] Last Admin: 06/15/18 11:15 Dose: 1 amp Aspirin (Asa -) 81 mg PO DAILY [facility] Last Admin: 06/15/18 11:44 Dose: 81 mg Atorvastatin Calcium (Lipitor -) 20 mg PO HS [facility] Chlorhexidine Gluconate (Hibiclens For Decolonization -) 1 applic TP HS [facility] Last Admin: 06/14/18 21:48 Dose: 1 applic Clonazepam (Klonopin -) 2 mg PO BID [facility] Last Admin: 06/15/18 11:43 Dose: 2 mg Enoxaparin Sodium (Lovenox -) 40 mg SQ DAILY [facility] Last Admin: 06/15/18 09:45 Dose: 40 mg Fluoxetine HCl (Prozac -) 40 mg PO DAILY [facility] Gabapentin (Neurontin -) 400 mg PO TID [facility] Cefepime HCl 1 gm/ Dextrose 100 mls @ 100 mls/hr IVPB Q8H-IV [facility]; Protocol Last Admin: 06/15/18 11:45 Dose: 100 mls/hr Vancomycin HCl (Vancomycin 1 Gm Premix -) 1 gm in 200 mls @ 133.333 mls/hr IVPB Q12H [facility]; Protocol Last Admin: 06/15/18 04:14 Dose: 133.333 mls/hr Insulin Aspart (Novolog Vial Sliding Scale -) 1 vial SQ ACHS [facility]; Protocol Last Admin: 06/15/18 11:56 Dose: 8 units Levothyroxine Sodium (Synthroid -) 100 mcg PO ACBK [facility] Last Admin: 06/15/18 11:45 Dose: 100 mcg Lurasidone HCl (Latuda -) 80 mg PO DAILY [facility] Methylprednisolone Sodium Succinate (Solu-Medrol -) 40 mg IVPUSH Q8H-IV [facility] Montelukast Sodium (Singulair -) 10 mg PO HS [facility] Mupirocin (Bactroban Ointment (For Decolonization) -) 1 applic NS BID [facility] Stop: 06/19/18 09:59 Last Admin: 06/15/18 09:45 Dose: 1 applic - Objective Vital Signs: Vital Signs Temperature 97.6 F 06/15/18 10:00 Pulse Rate 84 06/15/18 10:00 Respiratory Rate 22 H 06/15/18 10:00 Blood Pressure 111/87 06/15/18 10:00 O2 Sat by Pulse Oximetry (%) 95 06/15/18 09:25 Eyes: Yes: WNL, Conjunctiva Clear, EOM Intact HENT: Yes: WNL, Atraumatic, Normocephalic Neck: Yes: WNL, Supple, Trachea Midline Cardiovascular: Yes: WNL, Regular Rate and Rhythm Respiratory: Yes: WNL, Regular, CTA Bilaterally Gastrointestinal: Yes: WNL, Normal Bowel Sounds Genitourinary: Yes: WNL Musculoskeletal: Yes: WNL Extremities: Yes: WNL Edema: No Integumentary: Yes: WNL Neurological: Yes: WNL, Alert, Oriented ...Motor Strength: WNL Psychiatric: Yes: WNL Labs: CBC, BMP 06/15/18 08:00 06/15/18 08:00 INR, PTT INR 0.97 (0.83-1.09) 06/13/18 17:55 Assessment/Plan - Problems (1) Leukopenia Code(s): D72.819 - DECREASED WHITE BLOOD CELL COUNT, UNSPECIFIED (2) Hypomagnesemia Assessment/Plan: replete Mg; f/u all electrolytes. Code(s): E83.42 - HYPOMAGNESEMIA (3) Acute chronic obstructive pulmonary disease with respiratory distress Code(s): J44.9 - CHRONIC OBSTRUCTIVE PULMONARY DISEASE, UNSPECIFIED; R06.03 - ACUTE RESPIRATORY DISTRESS (4) CHF (congestive heart failure) Assessment/Plan: + JVD elevated NT BNP F/u ECHO Replete electrolytes BUN/Cr, Is and Os, daily weight. Code(s): I50.9 - HEART FAILURE, UNSPECIFIED (5) CAD (coronary artery disease) Code(s): I25.10 - ATHSCL HEART DISEASE OF [place] CORONARY ARTERY W/O ANG PCTRS (6) Heart valve replaced Assessment/Plan: f/u records of prior cardiac surgery, valve replacement(s). ECHO for LVEF, valve status, chamber sizes, wall motion; r/o pericardial effusion. Leukopenic; in respiratory distress. Code(s): Z95.2 - PRESENCE OF PROSTHETIC HEART VALVE (7) Pacemaker Code(s): Z95.0 - PRESENCE OF CARDIAC PACEMAKER (8) Pulmonary nodule Assessment/Plan: r/o lung CA; f/u with stringing machine tender. Code(s): R91.1 - SOLITARY PULMONARY NODULE (9) [place] cardiac risk >20% in next 10 years Assessment/Plan: f/u cardiac records for ? prior CABG. Coronary artery evaluation when stable. Code(s): Z91.89 - OTH PERSONAL RISK FACTORS, NOT ELSEWHERE CLASSIFIED
--- NOTE | 2018-06-15 12:33 | PN ---
Teaching Attending Note Name of Resident: Sridevi Patel ATTENDING PHYSICIAN STATEMENT I saw and evaluated the patient. I reviewed the resident's note and discussed the case with the resident. I agree with the resident's findings and plan as documented with exceptions below. SUBJECTIVE: Patient seen and examined. Awake, sitting in chair, coversant, no clear recollection of events prior to admission. Denies any pain, dyspnea, abdominal or urinary complaints currently. OBJECTIVE: Vital Signs Period Temp Pulse Resp BP Sys/Maldonado Pulse Ox Last 24 Hr 97.6 F-98.4 F 22-96 22-23 106-138/66-98 95-100 Intake & Output 06/12/18 06/13/18 06/14/18 06/15/18 23:59 23:59 23:59 23:59 Intake Total 490 540 Output Total 1100 400 Balance -610 140 Weight 113 lb 135 lb General: sitting in chair in no acute distress Chest: improved air entry, scattered wheezing but improved from before Abdomen;soft, NT, ND, positive bowel sounds Extremities: no edema CVS: S1S2 regular Active Medications Albuterol Sulfate (Ventolin 0.083% Nebulizer Soln -) 1 amp NEB Q4H PRN PRN Reason: SHORTNESS OF BREATH Albuterol/Ipratropium (Duoneb -) 1 amp NEB RQID [facility] Last Admin: 06/15/18 11:15 Dose: 1 amp Aspirin (Asa -) 81 mg PO DAILY [facility] Last Admin: 06/15/18 11:44 Dose: 81 mg Atorvastatin Calcium (Lipitor -) 20 mg PO HS [facility] Chlorhexidine Gluconate (Hibiclens For Decolonization -) 1 applic TP HS [facility] Last Admin: 06/14/18 21:48 Dose: 1 applic Clonazepam (Klonopin -) 2 mg PO BID [facility] Last Admin: 06/15/18 11:43 Dose: 2 mg Enoxaparin Sodium (Lovenox -) 40 mg SQ DAILY [facility] Last Admin: 06/15/18 09:45 Dose: 40 mg Fluoxetine HCl (Prozac -) 40 mg PO DAILY [facility] Gabapentin (Neurontin -) 400 mg PO TID [facility] Cefepime HCl 1 gm/ Dextrose 100 mls @ 100 mls/hr IVPB Q8H-IV [facility]; Protocol Last Admin: 06/15/18 11:45 Dose: 100 mls/hr Vancomycin HCl (Vancomycin 1 Gm Premix -) 1 gm in 200 mls @ 133.333 mls/hr IVPB Q12H [facility]; Protocol Last Admin: 06/15/18 04:14 Dose: 133.333 mls/hr Insulin Aspart (Novolog Vial Sliding Scale -) 1 vial SQ ACHS [facility]; Protocol Last Admin: 06/15/18 11:56 Dose: 8 units Levothyroxine Sodium (Synthroid -) 100 mcg PO ACBK [facility] Last Admin: 06/15/18 11:45 Dose: 100 mcg Lurasidone HCl (Latuda -) 80 mg PO DAILY [facility] Methylprednisolone Sodium Succinate (Solu-Medrol -) 40 mg IVPUSH Q8H-IV [facility] Montelukast Sodium (Singulair -) 10 mg PO HS [facility] Mupirocin (Bactroban Ointment (For Decolonization) -) 1 applic NS BID [facility] Stop: 06/19/18 09:59 Last Admin: 06/15/18 09:45 Dose: 1 applic Laboratory Results - last 24 hr 06/14/18 06/14/18 06/15/18 17:08 19:22 08:00 WBC 7.7 RBC 3.36 L Hgb 10.4 L Hct 31.7 L MCV 94.4 MCH 30.9 MCHC 32.8 RDW 13.8 Plt Count 149 D MPV 8.4 Anticoagulation Therapy No Result Required. Puncture Site Right radial ABG pH 7.40 D ABG pCO2 at Pt Temp 42.9 D ABG pO2 at Pt Temp 74.7 L D ABG HCO3 26.2 H ABG O2 Sat (Measured) 95.7 ABG O2 Content 14.2 L ABG Base Excess 1.8 Alhaji Test Positive O2 Delivery Device Bipa/ipat 16/6 Oxygen Flow Rate Yes Vent Mode No Result Required. Vent Rate 20 Mechanical Rate No Result Required. Pressure Support Vent No Result Required. Sodium Potassium Chloride Carbon Dioxide Anion Gap BUN Creatinine Creat Clearance w eGFR POC Glucometer 185.46336 Random Glucose Calcium Phosphorus Magnesium Triglycerides Cholesterol Total LDL Cholesterol HDL Cholesterol TSH 06/15/18 08:00 WBC RBC Hgb Hct MCV MCH MCHC RDW Plt Count MPV Anticoagulation Therapy Puncture Site ABG pH ABG pCO2 at Pt Temp ABG pO2 at Pt Temp ABG HCO3 ABG O2 Sat (Measured) ABG O2 Content ABG Base Excess Alhaji Test O2 Delivery Device Oxygen Flow Rate Vent Mode Vent Rate Mechanical Rate Pressure Support Vent Sodium 138 Potassium 4.6 Chloride 102 Carbon Dioxide 30 Anion Gap 6 L BUN 23 H Creatinine 0.8 Creat Clearance w eGFR > 60 POC Glucometer Random Glucose 139 H Calcium 8.9 Phosphorus 3.7 Magnesium 2.0 Triglycerides 115 Cholesterol 150 Total LDL Cholesterol 86 HDL Cholesterol 53 TSH 0.09 L ASSESSMENT AND PLAN: 53 yof with reported PMHx of CAD s/p PPM, COPD (not on home 02), asthma, hx multiple PE (unclear whether on a/c; non compliant with meds), multiple episodes of PNA, endocarditis, hx IVDA (heroin, 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 -Acute hypoxic/hypercapneic respiratory failure -Acute COPD exacerbation -Sepsis, r/o endocarditis -PNA -s/p PPM -MItral/Tricuspid valve replacements, ?h/o infective endocarditis -IVDA with heroine, denies recent use -?H/o multiple PE., -?PE -COPD Plan: Off bipap, mentating well, respiratory status improved. Taper steroids in 24 hours. ID input noted. cefepime/vancomycin day 2, monitor levels. Follow up PNA studies but low suspicion. . 2D echo. Cardiology input noted. AFB isolation Follow up Sputum AFB/PCR, Sputum cytology, Quantiferon Follow up blood cultures. Patient awake today, able to provide info on outpatient providers. Retrieve more info from PCP/psychiatry/cardiology. Detox consult when medical issues improve. Drug screen noted. Resume psych meds per patient currently, confirm with outpatient psychiatry. DVTPPX Agree with transfer out of ICU. Plan discussed with patient, RN and ICU team. Total critical care time spent 35 min.
--- NOTE | 2018-06-15 13:38 | PN ---
Physical Exam: SUBJECTIVE: Patient seen and examined. Pt. states that back pain is 10/[address] scan of the back. Pt. states that she fell 2 years ago and had multiple fractures. Denies any chest pain at this time or increased shortness of breath. During the afternoon Pt. was found to be using her Vape. We discussed with Pt. that vaping is not allowed in hospital, took the Vaporizer for safe keeping and offered a nicotine patch, all of which the Pt. agreed to. 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 EYES: PERRL, sclera anicteric, conjunctiva clear. No ptosis. ENT: Ears normal, nares patent, oropharynx clear without exudates, moist mucous membranes. NECK: Trachea midline, full range of motion, supple. LUNGS: Diffuse wheezing and mild crackles, decreased breath sounds. HEART: Regular rate and rhythm, S1, S2 with murmur ABDOMEN: Soft, nontender, nondistended, normoactive bowel sounds, no guarding, no rebound EXTREMITIES: 2+ dorsal pedal pulses, warm, well-perfused, no edema, no calf tenderness, R. wrist tenderness, 1+ radial pulse. All extremities warm to touch. No splinter hemorhages, Osler nodes or Janeway lesions appreciated NEUROLOGICAL: Normal speech, gait not observed. PSYCH: Normal mood, normal affect. SKIN: Warm, dry, normal turgor Laboratory Results - last 24 hr 06/14/18 06/14/18 06/14/18 17:08 19:22 22:48 WBC RBC Hgb Hct MCV MCH MCHC RDW Plt Count MPV Anticoagulation Therapy No Result Required. Puncture Site Right radial ABG pH 7.40 D ABG pCO2 at Pt Temp 42.9 D ABG pO2 at Pt Temp 74.7 L D ABG HCO3 26.2 H ABG O2 Sat (Measured) 95.7 ABG O2 Content 14.2 L ABG Base Excess 1.8 Alhaji Test Positive O2 Delivery Device Bipa/ipat 16/6 Oxygen Flow Rate Yes Vent Mode No Result Required. Vent Rate 20 Mechanical Rate No Result Required. Pressure Support Vent No Result Required. Sodium Potassium Chloride Carbon Dioxide Anion Gap BUN Creatinine Creat Clearance w eGFR POC Glucometer 185.93251 [phone] Random Glucose Calcium Phosphorus Magnesium Triglycerides Cholesterol Total LDL Cholesterol HDL Cholesterol TSH 06/15/18 06/15/18 06/15/18 08:00 08:00 11:50 WBC 7.7 RBC 3.36 L Hgb 10.4 L Hct 31.7 L MCV 94.4 MCH 30.9 MCHC 32.8 RDW 13.8 Plt Count 149 D MPV 8.4 Anticoagulation Therapy Puncture Site ABG pH ABG pCO2 at Pt Temp ABG pO2 at Pt Temp ABG HCO3 ABG O2 Sat (Measured) ABG O2 Content ABG Base Excess Alhaji Test O2 Delivery Device Oxygen Flow Rate Vent Mode Vent Rate Mechanical Rate Pressure Support Vent Sodium 138 Potassium 4.6 Chloride 102 Carbon Dioxide 30 Anion Gap 6 L BUN 23 H Creatinine 0.8 Creat Clearance w eGFR > 60 POC Glucometer 282.09205 Random Glucose 139 H Calcium 8.9 Phosphorus 3.7 Magnesium 2.0 Triglycerides 115 Cholesterol 150 Total LDL Cholesterol 86 HDL Cholesterol 53 TSH 0.09 L Active Medications Current Medications Albuterol Sulfate (Ventolin 0.083% Nebulizer Soln -) 1 amp NEB Q4H PRN PRN Reason: SHORTNESS OF BREATH Albuterol/Ipratropium (Duoneb -) 1 amp NEB RQID [facility] Last Admin: 06/15/18 11:15 Dose: 1 amp Aspirin (Asa -) 81 mg PO DAILY [facility] Last Admin: 06/15/18 11:44 Dose: 81 mg Atorvastatin Calcium (Lipitor -) 20 mg PO HS [facility] Chlorhexidine Gluconate (Hibiclens For Decolonization -) 1 applic TP HS [facility] Last Admin: 06/14/18 21:48 Dose: 1 applic Clonazepam (Klonopin -) 2 mg PO BID [facility] Last Admin: 06/15/18 11:43 Dose: 2 mg Enoxaparin Sodium (Lovenox -) 40 mg SQ DAILY [facility] Last Admin: 06/15/18 09:45 Dose: 40 mg Fluoxetine HCl (Prozac -) 40 mg PO DAILY [facility] Gabapentin (Neurontin -) 400 mg PO TID [facility] Cefepime HCl 1 gm/ Dextrose 100 mls @ 100 mls/hr IVPB Q8H-IV [facility]; Protocol Last Admin: 06/15/18 11:45 Dose: 100 mls/hr Vancomycin HCl (Vancomycin 1 Gm Premix -) 1 gm in 200 mls @ 133.333 mls/hr IVPB Q12H [facility]; Protocol Last Admin: 06/15/18 04:14 Dose: 133.333 mls/hr Insulin Aspart (Novolog Vial Sliding Scale -) 1 vial SQ ACHS [facility]; Protocol Last Admin: 06/15/18 11:56 Dose: 8 units Levothyroxine Sodium (Synthroid -) 100 mcg PO ACBK [facility] Last Admin: 06/15/18 11:45 Dose: 100 mcg Lurasidone HCl (Latuda -) 80 mg PO DAILY [facility] Methylprednisolone Sodium Succinate (Solu-Medrol -) 40 mg IVPUSH Q8H-IV [facility] Montelukast Sodium (Singulair -) 10 mg PO HS [facility] Mupirocin (Bactroban Ointment (For Decolonization) -) 1 applic NS BID [facility] Stop: 06/19/18 09:59 Last Admin: 06/15/18 09:45 Dose: 1 applic ASSESSMENT/PLAN: 53 y/o homeless F with PMH CAD s/p PPM, COPD (not on home O2), asthma, hx multiple PE (unclear whether on a/c; non compliant with meds), multiple episodes of PNA, endocarditis, hx IVDA (heroin, 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 Pt admitted for acute hypercapnic resp failure 2/2 possible COPD exacerbation, as well as sepsis 2/2 unknown etiology. PULM #Acute hypercapnic resp failure 2/2 possible COPD exacerbation-resolved -Pt. on 3L NC with SpO2 95% -duonebs QIDR, albuterol nebs q4h PRN -decreased solumedrol to 40mg IVP q8h #Hemoptysis -r/o Tb; f/u quantiferon -f/u Sputum Cx., No AFB seen in sputum smear -initial HIV test (-) -will place in isolation as results still pending -CTA: Negative for PE, 1.2cm RLL nodule, cardiac valve replacements and pacemaker with additional wires CARDIO # r/o Endocarditis -TTE (06/15/18): showed EF: 60-65%, mild TR and MR, no vegetations seen, LV nml in size and function. -CATHLEEN can be done for more sensitive r/o of endocarditis if indicated. -murmur on PE appreciated -no current source of infection -f/u Hx. of cardiac surgery for valve replacements and pacemaker placement. F/u anticoagulation for valves( may require Warfarin instead of Lovenox) ID #Sepsis 2/2 unknown etiology -Currently without infectious source; no evidence of infiltrate on CXR, UA; lactic WNL -Echo appreciated as noted above -c/w Vancomycin and Cefepime -F/u blood cx, urine cx -ID consult: Dr. Ocasio NEURO #AMS -possibly 2/2 infectious cause, or hypercapnia 2/2 COPD exacerbation -Head CT: No acute Pathology -restarted Latuda, Prozac and Klonipin #Bipolar Depression -restarted Latuda, Prozac and Klonipin Endocrine #DM-stable -ISS -BGM #Hypothyroidism-stable -c/w Synthroid 100mg Heme #Hx multiple PE-stable -c/w Lovenox #Weight loss, night sweats -may need heme consult; ?malignancy Renal #Hyperkalemia-resolved -K+: 4.6 -f/u AM BMP #F/E/N D/C IVF, encourage PO intake continue to monitor electrolytes Diabetic Diet, Speech and Swallow consult appreciated #PPX DVT: Lovenox 40mg SQ #Dispo Med/Surg Dispo: We will continue to follow the patient. Thank you for this consultative opportunity. Visit type - Emergency Visit Emergency Visit: Yes ED Registration Date: 06/13/18 Care time: The patient presented to the Emergency Department on the above date and was hospitalized for further evaluation of their emergent condition. - New Patient This patient is new to me today: No - Critical Care Critical Care patient: Yes Total Critical Care Time (in minutes): 42 Critical Care Statement: The care of this patient involved high complexity decision making to prevent further life threatening deterioration of the patient 's condition and/or to evaluate & treat vital organ system(s) failure or risk of failure. - Discharge Referral Referred to [facility] Med P.C.: No
--- NOTE | 2018-06-15 14:16 | CONSULT ---
Admitting History and Physical - Past Medical History Cardiovascular: Yes: CAD, CHF, HTN, Other (valve replacements) - Smoking History Smoking history: Current every day smoker Have you smoked in the past 12 months: Yes Aproximately how many cigarettes per day: 40 - Alcohol/Substance Use Hx Alcohol Use: No History - Admission Reason For Visit: ACUTE EXACERBATION OF CHRONIC OBSTRUCTIVE - Hearing Hearing: Normal Hearing Aide: No Speech Evaluation - Communication Primary Language: ROMANSH Communication: Yes: Within Normal Limits Oral Expression Ability: Yes: No Impairment - Speech Production Apraxia: No Able to Make Needs Known: Yes: WNL Intelligibility: Yes: WNL - Speech Characteristics Voice Loudness: Normal Voice Pitch: Yes: Normal Voice Phonatory-based Quality: Yes: Normal Speech Pattern: Normal Nasal Resonance: Normal Articulation: Yes: Precise Dysfluency: Yes: Tonic Rate of Speech: Intact Voice Comment: Vocal quality and airway protection is WNL - Language/Auditory Comprehension Follows: Yes: 1 Stage Simple Commands (WFL), 2 Stage Simple Commands (WFL), Complex Commands (WFL) Observation: Able to respond to yes/no queries: Yes, Yes/No Confusion: No, Comprehends Conversational Speech: Yes, Benefits from Slow Speech: No, Benefits from Repetiton: No, Benefits from Increased Volume of Speech: No - Language/Verbal Expression Able to Respond to Simple Queries: Yes: WNL Able to Communicate Wants and Needs: Yes: WNL Functional Communication Status: Yes: WNL Aware of Errors: Yes Attempts to Correct Errors: Yes Use of Gestures: No Written Expression: WFL Oral Expression: WFL Reading Comprehension: WFL Calculations: WFL Attention: Yes: Intact - Memory/Perception terminal system operator Memory: Yes: WNL Short Term Memory: Yes: WNL - Swallow Evaluation/Bedside Assessment Current Nutritional Intake: Soft (diabetic), Thin Liquids Oral Secretions: Yes: WFL Tracheostomy Present: No Patient on Ventilator: No Dentition: Yes: Edentulous Facial Symmetry at Rest: Symmetrical Facial Symmetry on Retraction: Symmetrical Facial Movement: Controlled Sensation: Normal Facial Comment: WFL for speech and swallowing purposes Jaw Position: Closed at Rest Against Resistance Opening: Normal Against Resistance Closing: Normal Pucker Lips: Normal Smile: Normal Lips, Comment: WFL for speech and swallowing purposes Lingual Movement: Normal Lingual Speed of Movement: Normal Lingual Movement Strgth Against Opposition: Normal Lingual Movement Characteristics: Normal Lingual Comment: WFL for speech and swallowing purposes Soft Palate Description: Normal Color Hard Palate Description: Normal Color Gag Reflex: Strong Velopharyngeal Movement: Normal Laryngeal Elevation: WFL Laryngeal Movement: Able to Palpate Needs Assistance: No Rate of Intake: WFL Bolus Size: WFL Labial Seal: WFL Chewing: WFL Oral Prep Time: WFL A-P Transit: WFL Timing of Swallow: WFL Coughing/Throat Clear: No Change in Voice: No Other Findings/Remarks: 53 yo female seen at bedside for swallow eval to r/o dysphagia. Pt is verbal, A &Ox3 anxious. Admitted to [facility] for excessive cough, fever, night sweats. H/O COPD asthma, HCV, DM, HTN CAD s/p pacemaker. Current diet is regular diabetic soft solids with thin liquids. Pt given po trials of puree, and soft solids without assistance revealed good acceptance, adequate bolus formation and transport. Pharyngeal swallow appears timely with no cough or changes in voicing after the swallow. Thin liquid trials via cup and straw without assistance were unremarkable for for dysphagia at bedside. Recommendations - Speech Evaluation, Impression/Plan Impression: Pt presents with minimal dysphagia for purees, soft regular solids with thin liquids. No s/s aspiration at bedside at this time. Speech and vocal quality is WNL. Maths Tutor Goals: tolerate the least restrictive diet without s/s of aspiration Short Term Goals: tolerate regular diabetic solids with thin liquids without s/ s aspiration. - Dysphagia Impressions/Plan Swallowing Skills: Impaired Dysphagia Impressions: Minimal Impairment (secondary to dental status.) Dysphagia Treatment Plan: Small Bites, Safe Rate, Elevate HOB during feed, Other (monitor nutritional intake and pulmonary status) Dysphagia Evaluation Summary: continue current regular soft diabetic solids with thin liquids as tolerated. Observe standard aspiration precautions. Meds can be given whole with liquids. Results given verbal to rn lvn Debbie and to pcp via chart. WEIGH BOX TENDER to follow up - Recommendations Diet Consistency: Regular (diabetic) Medication Administration: Whole with water Liquids: Thin Liquids
--- NOTE | 2018-06-15 14:38 | PN ---
Progress Note, Physician History of Present Illness: Awake and alert today C/O chronic back pain No c/o chest pain/ dyspnea Denies hemoptysis Breathing non-labored on nasal cannula No c/o fever/ chills Temps down afebrile - Current Medication List Current Medications: Active Medications Albuterol Sulfate (Ventolin 0.083% Nebulizer Soln -) 1 amp NEB Q4H PRN PRN Reason: SHORTNESS OF BREATH Albuterol/Ipratropium (Duoneb -) 1 amp NEB RQID [facility] Last Admin: 06/15/18 11:15 Dose: 1 amp Aspirin (Asa -) 81 mg PO DAILY [facility] Last Admin: 06/15/18 11:44 Dose: 81 mg Atorvastatin Calcium (Lipitor -) 20 mg PO HS [facility] Chlorhexidine Gluconate (Hibiclens For Decolonization -) 1 applic TP HS [facility] Last Admin: 06/14/18 21:48 Dose: 1 applic Clonazepam (Klonopin -) 2 mg PO BID [facility] Last Admin: 06/15/18 11:43 Dose: 2 mg Enoxaparin Sodium (Lovenox -) 40 mg SQ DAILY [facility] Last Admin: 06/15/18 09:45 Dose: 40 mg Fluoxetine HCl (Prozac -) 40 mg PO DAILY [facility] Gabapentin (Neurontin -) 400 mg PO TID [facility] Cefepime HCl 1 gm/ Dextrose 100 mls @ 100 mls/hr IVPB Q8H-IV [facility]; Protocol Last Admin: 06/15/18 11:45 Dose: 100 mls/hr Vancomycin HCl (Vancomycin 1 Gm Premix -) 1 gm in 200 mls @ 133.333 mls/hr IVPB Q12H [facility]; Protocol Last Admin: 06/15/18 04:14 Dose: 133.333 mls/hr Insulin Aspart (Novolog Vial Sliding Scale -) 1 vial SQ ACHS [facility]; Protocol Last Admin: 06/15/18 11:56 Dose: 8 units Levothyroxine Sodium (Synthroid -) 100 mcg PO ACBK [facility] Last Admin: 06/15/18 11:45 Dose: 100 mcg Lurasidone HCl (Latuda -) 80 mg PO DAILY [facility] Methylprednisolone Sodium Succinate (Solu-Medrol -) 40 mg IVPUSH Q8H-IV [facility] Montelukast Sodium (Singulair -) 10 mg PO HS [facility] Mupirocin (Bactroban Ointment (For Decolonization) -) 1 applic NS BID [facility] Stop: 06/19/18 09:59 Last Admin: 06/15/18 09:45 Dose: 1 applic - Objective Vital Signs: Vital Signs Temperature 98.6 F 06/15/18 13:15 Pulse Rate 88 06/15/18 13:15 Respiratory Rate 22 H 06/15/18 13:15 Blood Pressure 100/76 06/15/18 13:15 O2 Sat by Pulse Oximetry (%) 95 06/15/18 09:25 Constitutional: Yes: No Distress Cardiovascular: Yes: Regular Rate and Rhythm, S1, S2 Respiratory: Yes: Rhonchi Gastrointestinal: Yes: Normal Bowel Sounds, Soft. No: Tenderness Edema: No Labs: CBC, BMP 06/15/18 08:00 06/15/18 08:00 INR, PTT INR 0.97 (0.83-1.09) 06/13/18 17:55 Assessment/Plan Acute exacerbation COPD RLL lung mass, possible neoplasm ? cavitary RUL lung lesion R/O endocarditis await c/s, sputum AFB Continue vancomycin / cefepime
--- NOTE | 2018-06-15 14:47 | PN ---
Physical Exam: SUBJECTIVE: Patient seen and examined at bedside this morning. Patient reports feeling better with some shortness of breath. Patient on 3L nasal cannula. 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 EYES: PERRLA, sclera anicteric, conjunctiva clear. ENT: Ears normal, nares patent, oropharynx clear without exudates, moist mucous membranes. NECK: Trachea midline, full range of motion, supple. LUNGS: +Diffuse wheezing, bilaterally HEART: Regular rate and rhythm, S1, S2 without murmur, rub or gallop. ABDOMEN: Soft, nontender, nondistended, normoactive bowel sounds. EXTREMITIES: 2+ pulses, warm, well-perfused, no edema. NEUROLOGICAL: Cranial nerves II through XII grossly intact. Normal speech, gait not observed. PSYCH: Appropriate mood and affect. SKIN: Warm, dry, normal turgor, no rashes or lesions noted. Laboratory Results - last 24 hr 06/13/18 06/14/18 06/14/18 19:00 17:08 19:22 WBC RBC Hgb Hct MCV MCH MCHC RDW Plt Count MPV Anticoagulation Therapy No Result Required. Puncture Site Right radial ABG pH 7.40 D ABG pCO2 at Pt Temp 42.9 D ABG pO2 at Pt Temp 74.7 L D ABG HCO3 26.2 H ABG O2 Sat (Measured) 95.7 ABG O2 Content 14.2 L ABG Base Excess 1.8 Alhaji Test Positive O2 Delivery Device Bipa/ipat 16/6 Oxygen Flow Rate Yes Vent Mode No Result Required. Vent Rate 20 Mechanical Rate No Result Required. Pressure Support Vent No Result Required. Sodium Potassium Chloride Carbon Dioxide Anion Gap BUN Creatinine Creat Clearance w eGFR POC Glucometer [phone] Random Glucose Calcium Phosphorus Magnesium Triglycerides Cholesterol Total LDL Cholesterol HDL Cholesterol TSH HIV 1&2 Ag/Ab, 4th Gen Non reactive 06/14/18 06/15/18 06/15/18 22:48 08:00 08:00 WBC 7.7 RBC 3.36 L Hgb 10.4 L Hct 31.7 L MCV 94.4 MCH 30.9 MCHC 32.8 RDW 13.8 Plt Count 149 D MPV 8.4 Anticoagulation Therapy Puncture Site ABG pH ABG pCO2 at Pt Temp ABG pO2 at Pt Temp ABG HCO3 ABG O2 Sat (Measured) ABG O2 Content ABG Base Excess Alhaji Test O2 Delivery Device Oxygen Flow Rate Vent Mode Vent Rate Mechanical Rate Pressure Support Vent Sodium 138 Potassium 4.6 Chloride 102 Carbon Dioxide 30 Anion Gap 6 L BUN 23 H Creatinine 0.8 Creat Clearance w eGFR > 60 POC Glucometer [phone] Random Glucose 139 H Calcium 8.9 Phosphorus 3.7 Magnesium 2.0 Triglycerides 115 Cholesterol 150 Total LDL Cholesterol 86 HDL Cholesterol 53 TSH 0.09 L HIV 1&2 Ag/Ab, 4th Gen 06/15/18 11:50 WBC RBC Hgb Hct MCV MCH MCHC RDW Plt Count MPV Anticoagulation Therapy Puncture Site ABG pH ABG pCO2 at Pt Temp ABG pO2 at Pt Temp ABG HCO3 ABG O2 Sat (Measured) ABG O2 Content ABG Base Excess Alhaji Test O2 Delivery Device Oxygen Flow Rate Vent Mode Vent Rate Mechanical Rate Pressure Support Vent Sodium Potassium Chloride Carbon Dioxide Anion Gap BUN Creatinine Creat Clearance w eGFR POC Glucometer [phone] Random Glucose Calcium Phosphorus Magnesium Triglycerides Cholesterol Total LDL Cholesterol HDL Cholesterol TSH HIV 1&2 Ag/Ab, 4th Gen Active Medications Generic Name Dose Route Start Last Admin Trade Name Freq PRN Reason Stop Dose Admin Albuterol Sulfate 1 amp 06/14/18 00:30 Ventolin 0.083% Nebulizer Soln - NEB Q4H PRN SHORTNESS OF BREATH Albuterol/Ipratropium 1 amp 06/14/18 02:00 06/15/18 11:15 Duoneb - NEB 1 amp RQID [facility] Administration Aspirin 81 mg 06/15/18 11:30 06/15/18 11:44 Asa - PO 81 mg DAILY [facility] Administration Atorvastatin Calcium 20 mg 06/15/18 22:00 Lipitor - PO HS [facility] Chlorhexidine Gluconate 1 applic 06/14/18 22:00 06/14/18 21:48 Hibiclens For Decolonization - TP 1 applic HS [facility] Administration Clonazepam 2 mg 06/15/18 11:30 06/15/18 11:43 Klonopin - PO 2 mg BID [facility] Administration Enoxaparin Sodium 40 mg 06/14/18 11:30 06/15/18 09:45 Lovenox - SQ 40 mg DAILY [facility] Administration Fluoxetine HCl 40 mg 06/15/18 12:00 Prozac - PO DAILY [facility] Gabapentin 400 mg 06/15/18 14:00 Neurontin - PO TID [facility] Cefepime HCl 1 gm/ Dextrose 100 mls @ 100 mls/hr 06/14/18 15:00 06/15/18 11: 45 IVPB 100 mls/hr Q8H-IV [facility] Administration Protocol Vancomycin HCl 1 gm in 200 mls @ 133.333 mls/hr 06/14/18 16:00 06/15/18 04:14 Vancomycin 1 Gm Premix - IVPB 133.333 mls/hr Q12H [facility] Administration Protocol Insulin Aspart 1 vial 06/14/18 07:00 06/15/18 11:56 Novolog Vial Sliding Scale - SQ 8 units ACHS [facility] Administration Protocol Levothyroxine Sodium 100 mcg 06/15/18 11:30 06/15/18 11:45 Synthroid - PO 100 mcg ACBK [facility] Administration Lurasidone HCl 80 mg 06/15/18 12:00 Latuda - PO DAILY [facility] Methylprednisolone Sodium Succinate 40 mg 06/15/18 12:09 Solu-Medrol - IVPUSH Q8H-IV [facility] Montelukast Sodium 10 mg 06/15/18 22:00 Singulair - PO [facility] Mupirocin 1 applic 06/14/18 10:00 06/15/18 09:45 Bactroban Ointment (For Decolonization) - NS 06/19/18 09:59 1 applic BID [facility] Administration Imaging: CXR (06/13/18) - No infiltrate or consolidation, no edema in the lungs. Chest CTA - No evidence of acute pulmonary emboli. 1.2cm nodular opacity right lower lobe. Neoplasm cannot be excluded. Head CT without contrast - No acute bleed or mass or fracture. No CT evidence of acute infarct. CXR (06/15/18) - No acute change since prior study. Echo - LV is normal in size. LV systolic function is normal. No regional wall motion abnormalities. EF = 60-65%. LA size is normal. RA size is normal. There is a bioprosthetic mitral valve. The prosthetic mitral valve is well-seated. The prosthetic mitral valve appears to open well. There is mild mitral regurgitation. There is a bioprothetic tricuspid valve. There is mild tricuspid regurgitation. RV systolic pressure is normal. There is mild aortic sclerosis. Mild pulmonic valvular regurgitation. There is a pacemaker lead in the right ventricle. No obvious vegetations. Clinical correlation is recommended. There is no pericardial effusion. ASSESSMENT/PLAN: 53 year old female with a known pmh of COPD, asthma, HCV, DM, HTN, CAD s/p pacemaker, and kidney disease was brought to the hospital by brother for > 1 week of fevers, hemoptysis, night sweats, dyspnea, nausea vomiting and diarrhea , headache and neck pain. #Acute Hypercapnic Respiratory Failure: likely 2/2 COPD exacerbation, resolved -Duonebs Q6h -Solumedrol IV decreased to 40mg q8h -Albuterol nebs q4h PRN -on 3L NC with SpO2 95% #SIRS: unclear etiology -HIV negative -quantiferon gold pending -Sputum culture pending. -blood culture, urine culture -CXR - No infiltrate or consolidation, no edema in the lungs. -ID (Dr. Ocasio) consulted. Recommendations appreciated. -Continue vancomycin / cefepime (Day 2) -Isolation precaution pending culture results. #Altered Mental Status: likely 2/2 CO2 retention and hypercarcbia -Head CT - No acute bleed or mass or fracture. No CT evidence of acute infarct. #Bipolar type 2 -Called [facility] where patient sees Dr. Hair for psychiatric evaluation -Patient on Ambien, Klonopin, Latuda and Prozac. #Hypothyroidism -Continue Synthroid 100mcg. -TSH 0.09, T4 pending. #Hx of Endocarditis -Echo -LV is normal in size. LV systolic function is normal. No regional wall motion abnormalities. EF = 60-65%. LA size is normal. RA size is normal. There is a bioprosthetic mitral valve. The prosthetic mitral valve is well-seated. The prosthetic mitral valve appears to open well. There is mild mitral regurgitation. There is a bioprothetic tricuspid valve. There is mild tricuspid regurgitation. RV systolic pressure is normal. There is mild aortic sclerosis. Mild pulmonic valvular regurgitation. There is a pacemaker lead in the right ventricle. No obvious vegetations. Clinical correlation is recommended. There is no pericardial effusion. #DM: glucose 150 -On Glargine 30 units HS at home. -BGM Q6h -ISS #HTN: patient is normotensive -Continue home medications #CAD s/p Pacemaker: not an acute issue -continue home medications. #IV Drug abuse -Urine toxicology: +opiates and +benzodiazepines -Patient on ?Methadone 10mg TID -Detox consulted. #FEN -Not on any standing fluids -Encourage increased oral fluid intake -Electrolytes wnl, routine bmp monitoring -Diabetic diet #Prophylaxis -SCDs #Disposition -Transfer to med-surg -Isolation precaution pending cultures Visit type - Emergency Visit Emergency Visit: Yes ED Registration Date: 06/13/18 Care time: The patient presented to the Emergency Department on the above date and was hospitalized for further evaluation of their emergent condition. - New Patient This patient is new to me today: Yes Date on this admission: 06/15/18 - Critical Care Critical Care patient: No
--- NOTE | 2018-06-15 15:50 | ECHO ---
Name: BENJY WOMACK Exam:Adult Echocardiogram Study Date: 06/15/2018 10:35 AM Age: 53 yrs Reason For Study: Wall Motion Height: 62 in Weight: 113 lb BSA: 1.5 m2 MMode/2D Measurements & Calculations IVSd: 0.83 cm Ao root diam: 2.7 cm LVIDd: 4.4 cm LA dimension: 3.4 cm LVIDs: 3.2 cm LVPWd: 0.83 cm EDV(Teich): 87.9 ml ESV(Teich): 39.9 ml Doppler Measurements & Calculations MV V2 max: 209.6 cm/sec MV E max homero: 151.7 cm/sec MV max P.6 mmHg MV A max homero: 147.7 cm/sec MV V2 mean: 155.9 cm/sec MV E/A: 1.0 MV mean P.5 mmHg MV V2 VTI: 53.2 cm Ao V2 max: 127.7 cm/sec LV V1 max P.5 mmHg Ao max P.5 mmHg LV V1 max: 79.1 cm/sec TR max homero: 222.2 cm/sec TR max P.9 mmHg Procedure A complete two-dimensional transthoracic echocardiogram was performed (2D, M-mode, Doppler and color flow Doppler). Left Ventricle The left ventricle is normal in size. Left ventricular systolic function is normal. Ejection Fraction = 60- 65%. No regional wall motion abnormalities noted. Right Ventricle The right ventricle is not well visualized. There is a pacemaker lead in the right ventricle. Atria The left atrial size is normal. Right atrial size is normal. Mitral Valve There is a bioprosthetic mitral valve. The prosthetic mitral valve is well-seated. The prosthetic desean ral valve appears to open well. There is mild mitral regurgitation. Tricuspid Valve There is a bioprosthetic tricuspid valve. There is mild tricuspid regurgitation. Right ventricular sy stolic pressure is normal. Aortic Valve There is mild aortic sclerosis.;. No aortic regurgitation is present. Pulmonic Valve The pulmonic valve is not well visualized. Mild pulmonic valvular regurgitation. Great Vessels The aortic root is normal size. Pericardium/Pleura There is no pericardial effusion. Interpretation Summary The left ventricle is normal in size. Left ventricular systolic function is normal. No regional wall motion abnormalities noted. Ejection Fraction = 60-65%. The left atrial size is normal. Right atrial size is normal. There is a bioprosthetic mitral valve. The prosthetic mitral valve is well-seated. The prosthetic mitral valve appears to open well. There is mild mitral regurgitation. There is a bioprosthetic tricuspid valve. There is mild tricuspid regurgitation. Right ventricular systolic pressure is normal. There is mild aortic sclerosis.; Mild pulmonic valvular regurgitation. There is a pacemaker lead in the right ventricle. No obvious vegetations. Clinical correlation is recommended. CATHLEEN if clinically indicated There is no pericardial effusion. Previous study is not available for comparison Vipul Hair MD 06/15/2018 03:50 PM
[2018-06-15] MEDS: LURASIDONE HCL 40 MG TABLET PO SCH (17:26)
[2018-06-15] MEDS: FLUoxetine HCL 20 MG CAPSULE (FP) PO SCH (17:26)
[2018-06-15] MEDS: GABAPENTIN 400 MG CAPSULE (FP) PO SCH ×2 (17:27→21:17)
--- NOTE | 2018-06-15 19:36 | CONSULT ---
Consult Detox [facility] Reason for Current Admission/Consult: h/o ? IVDA - History History of Present Illness: Pt states that she has a long h/o opioid use. She was on Suboxone last year but switched to Methadone when she found a pain management physician. The methadone was stopped when she was found to have cocaine in her urine. Since then she has been using pain pills that she buys on the street and occ "morphine pills- 15 mg pills". Pt states she uses about 10-15 pills a day. Last use was the day prior to admission. Pt states she would like to back on Suboxone to prevent withdrawals- feels like she is in withdrawal now- with chills and diarrhea. Urine tox positive for opiates and benzo. Pt admitted with h/o multiple medical problems: "53 year old female with a known pmh of COPD, asthma, HCV, DM, HTN, CAD s/p pacemaker, and kidney disease was brought to the hospital by brother for > 1 week of fevers, hemoptysis, night sweats, dyspnea, nausea vomiting and diarrhea, headache and neck pain". Pt currently on antibiotics, Klonopin and several other medications, including non opioid pain meds. From [facility]: Rx Written Rx Dispensed Drug Quantity Days Supply Prescriber Name 05/14/2018 05/14/2018 clonazepam 2 mg tablet 60 30 Aron Hair MD 05/14/2018 05/14/2018 zolpidem tartrate 5 mg tablet 30 30 Aron Hair MD 03/20/2018 04/02/2018 oxycodone-acetaminophen 5-325 mg tab 12 2 Hunter Delong 02/21/2018 03/03/2018 oxycodone-acetaminophen 5-325 mg tab 10 2 Benedicto Tracy) 01/29/2018 02/03/2018 hydrocodone-acetaminophen 5-325 mg tablet 60 30 Sherman Austin M D 01/28/2018 01/28/2018 hydrocodone-acetaminophen 5-325 mg tablet 4 2 Eulalia Armstrong 01/09/2018 01/19/2018 clonazepam 2 mg tablet 60 30 Todd Denis MD 01/09/2018 01/19/2018 zolpidem tartrate 10 mg tablet 30 30 Todd Denis MD 12/30/2017 12/30/2017 hydrocodone-acetaminophen 5-325 mg tablet 60 30 Sherman Austin M D 12/05/2017 12/20/2017 zolpidem tartrate 10 mg tablet 30 30 Todd Denis MD 12/05/2017 12/20/2017 clonazepam 2 mg tablet 60 30 Todd Denis MDPt - Alcohol/Substance Use Hx Alcohol Use: No - Past Medical History Cardio/Vascular: Yes: CAD, CHF, HTN, Other (valve replacements) COWS - Scale Resting Pulse: 1= SD 81-100 Sweatin= Chills/Flushing Restless Observation: 1= Difficult to Sit Still Pupil Size: 1= Pupils >than Normal Bone or Joint Aches: 1= Mild Discomfort Runny Nose/ Eye Tearin= Nasal Congestion GI Upset > 30mins: 2= Nausea/Diarrhea Tremor Observation: 1= Tremor [place], Not Seen Yawning Observation: 0= None Anxiety or Irritability: 1=Feels Anxious/Irritable Goose Flesh Skin: 0=Smooth Skin COWS Score: 10 Assessment Plan - Diagnosis (1) Opioid use disorder Status: Acute - Plan Plan: Pt has a long h/o opioid use. Has been on suboxone in the past. Not getting opioid pain meds in hospital. Pt has a COWS- withdrawal score of 10. 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 Pt given a f/u appt for Suboxone intake and treatment at [facility] for 06/24/[address] [place] [address]. Please call me if I can help with Suboxone titration and for discharge: . - Medication Detox Regimen/Protocol: Suboxone
[2018-06-15] MEDS ORDERED: VANCOMYCIN 1,000 MG in DEXTROSE 5%-WATER - 250 ML IVPB SCH (20:00)
[2018-06-15] MEDS: MONTELUKAST NA 10 MG TABLET PO SCH (21:17)
[2018-06-15] MEDS: ATORVASTATIN CA 20 MG TABLET (FP) PO SCH (21:17)
[2018-06-15] MEDS: PREGABALIN 100 MG CAPSULE PO SCH (21:17)
[2018-06-15] MEDS: ZOLPIDEM TARTRATE 5 MG TABLET PO SCH (21:23)
[2018-06-15] MEDS: NICOTINE 7 MG/24 HOURS TOPICAL PATCH TD SCH (21:36)
[2018-06-15] MEDS: CHLORHEXIDINE GLUCONATE 4% CLEANSER FOR DECOLONIZATION TP SCH (21:37)
[2018-06-15] MEDS ORDERED: clonazePAM 2 MG TABLET PO SCH (22:00)
[2018-06-16] MEDS: CEFEPIME 1 GM in DEXTROSE 5%-WATER - 100 ML IVPB SCH ×3 (02:14→17:10)
[2018-06-16] MEDS: methylPREDNISolone NA SUCC 125 MG/2 ML VIAL IVPUSH SCH ×3 (02:20→17:10)
[2018-06-16] MEDS: MUPIROCIN 2% TOPICAL OINTMENT FOR DECOLONIZATION NS SCH ×2 (02:22→10:53)
[2018-06-16] MEDS: VANCOMYCIN 1 GM PREMIX - 1 GM/200 ML BAG IVPB SCH (04:05)
[2018-06-16] MEDS: GABAPENTIN 400 MG CAPSULE (FP) PO SCH ×3 (06:25→22:02)
[2018-06-16] MEDS: LEVOTHYROXINE NA 100 MCG TABLET (FP) PO SCH (06:25)
[2018-06-16 06:31] LABS: HEMATOCRIT 33.4 % (32.4-45.2); HEMOGLOBIN 10.9 GM/dL (10.7-15.3); LYMPH % 7.2 % (8-40); MCH 30.8 pg (25.7-33.7); MCHC 32.8 g/dl (32.0-36.0); MEAN CELL VOLUME 93.9 fl (80-96); MEAN PLT VOLUME 8.5 fl (7.5-11.1); MONO % 2.9 % (3.8-10.2); NEUT % 89.9 % (42.8-82.8); PLATELET COUNT 178 K/MM3 (134-434); RBC 3.55 M/mm3 (3.60-5.2)
[2018-06-16] MEDS: INSULIN SLIDING SCALE (NOVOLOG) 1 VIAL SQ SCH ×3 (06:31→17:40)
[2018-06-16 07:12] LABS: ANION GAP 5 MMOL/L (8-16); BLOOD UREA NITROGEN 25 mg/dL (7-18); CALCIUM 8.9 mg/dL (8.5-10.1); CHLORIDE 104 mmol/L (98-107); CO2 27 mmol/L (21-32); CREATININE 0.7 mg/dL (0.55-1.3); GLUCOSE,RANDOM 256 mg/dL (74-106); PHOSPHOROUS 3.2 mg/dL (2.5-4.9); POTASSIUM 4.5 mmol/L (3.5-5.1); SODIUM 136 mmol/L (136-145)
[2018-06-16] MEDS: ALBUTEROL SO4 2.5/IPRATROPIUM 0.5 INH SOL 3 ML VIAL.NEB. NEB SCH ×4 (08:40→20:30)
--- NOTE | 2018-06-16 09:18 | PN ---
Progress Note, Physician Chief Complaint: Pt A&Ox3; OOB in chair; feels better, but remains dyspneic on minimal exertion. No chest pain. History of Present Illness: 53 yo white woman with a hx of COPD, cardiac valve replacments (andi and ? tricsupid; 2010 at [facility]; denies CABG), PPM, Asthma, PE, multiple episodes of PNA, Hep C, endocarditis, T2DM, HTN, CAD, pacemaker, kidney disease, s/p IV heroin abuse (quit when had valves replaced in 2010), s/p fall (non-syncopal)--> broken femur and wrist 2014, anxiety is here with a week of subjective fevers, unintentional 15 ib weight loss, night sweats, productive cough with blood streaked sputum, watery diarrhea, throat pain, SOB and extreme difficulty breathing. She admits to a hx of prior IV drug use with heroin. She also endorses chronic headaches and back pain. She denies a hx of HIV - She has verbally consented to be tested for HIV - Current Medication List Current Medications: Active Medications Albuterol Sulfate (Ventolin 0.083% Nebulizer Soln -) 1 amp NEB Q4H PRN PRN Reason: SHORTNESS OF BREATH Albuterol/Ipratropium (Duoneb -) 1 amp NEB RQID [facility] Last Admin: 06/15/18 20:30 Dose: 1 amp Aspirin (Asa -) 81 mg PO DAILY [facility] Last Admin: 06/15/18 11:44 Dose: 81 mg Atorvastatin Calcium (Lipitor -) 20 mg PO [facility] Last Admin: 06/15/18 21:17 Dose: 20 mg Chlorhexidine Gluconate (Hibiclens For Decolonization -) 1 applic TP [facility] Last Admin: 06/15/18 21:37 Dose: 1 applic Clonazepam (Klonopin -) 2 mg PO BID [facility] Last Admin: 06/15/18 21:17 Dose: 2 mg Enoxaparin Sodium (Lovenox -) 40 mg SQ DAILY [facility] Last Admin: 06/15/18 09:45 Dose: 40 mg Fluoxetine HCl (Prozac -) 40 mg PO DAILY [facility] Last Admin: 06/15/18 17:26 Dose: 40 mg Gabapentin (Neurontin -) 400 mg PO TID [facility] Last Admin: 06/16/18 06:25 Dose: 400 mg Cefepime HCl 1 gm/ Dextrose 100 mls @ 100 mls/hr IVPB Q8H-IV [facility]; Protocol Last Admin: 06/16/18 02:14 Dose: 100 mls/hr Vancomycin HCl (Vancomycin 1 Gm Premix -) 1 gm in 200 mls @ 133.333 mls/hr IVPB Q12H [facility]; Protocol Last Admin: 06/16/18 04:05 Dose: 133.333 mls/hr Insulin Aspart (Novolog Vial Sliding Scale -) 1 vial SQ ACHS [facility]; Protocol Last Admin: 06/16/18 06:31 Dose: 6 units Levothyroxine Sodium (Synthroid -) 100 mcg PO ACBK [facility] Last Admin: 06/16/18 06:25 Dose: 100 mcg Lurasidone HCl (Latuda -) 80 mg PO DAILY [facility] Last Admin: 06/15/18 17:26 Dose: 80 mg Methylprednisolone Sodium Succinate (Solu-Medrol -) 40 mg IVPUSH Q8H-IV [facility] Last Admin: 06/16/18 02:20 Dose: 40 mg Montelukast Sodium (Singulair -) 10 mg PO HS [facility] Last Admin: 06/15/18 21:17 Dose: 10 mg Mupirocin (Bactroban Ointment (For Decolonization) -) 1 applic NS BID [facility] Stop: 06/19/18 09:59 Last Admin: 06/16/18 02:22 Dose: 1 applic Nicotine (Nicoderm Patch -) 7 mg TD DAILY [facility] Last Admin: 06/15/18 21:36 Dose: 7 mg Pantoprazole Sodium (Protonix -) 20 mg PO DAILY [facility] Pregabalin (Lyrica -) 100 mg PO BID [facility] Last Admin: 06/15/18 21:17 Dose: 100 mg Zolpidem Tartrate (Ambien -) 5 mg PO HS [facility] Last Admin: 06/15/18 21:23 Dose: 5 mg - Objective Vital Signs: Vital Signs Temperature 98.8 F 06/16/18 06:00 Pulse Rate 72 06/16/18 06:00 Respiratory Rate 20 06/16/18 06:00 Blood Pressure 134/110 H 06/16/18 06:00 O2 Sat by Pulse Oximetry (%) 97 06/15/18 23:31 Constitutional: Yes: Anxious Eyes: Yes: WNL HENT: Yes: WNL Neck: Yes: WNL Cardiovascular: Yes: Regular Rate and Rhythm, Murmur, S2 (split), S4 Respiratory: Yes: Diminished Gastrointestinal: Yes: Soft ...Rectal Exam: Yes: Deferred Genitourinary: No: Anuria Breast(s): Yes: WNL Musculoskeletal: Yes: Muscle Weakness Extremities: Yes: WNL Edema: No Peripheral Pulses WNL: Yes Integumentary: Yes: WNL Neurological: Yes: Alert, Oriented, Weakness Psychiatric: Yes: Alert, Oriented Labs: CBC, BMP 06/16/18 05:30 06/16/18 05:30 INR, PTT INR 0.97 (0.83-1.09) 06/13/18 17:55 Abnormal Lab Results 06/15/18 06/16/18 06/16/18 08:00 05:30 05:30 RBC 3.55 L Neutrophils % 89.9 H D Lymphocytes % 7.2 L D Monocytes % 2.9 L Anion Gap 6 L 5 L BUN 23 H 25 H Random Glucose 139 H 256 H TSH 0.09 L - ....Imaging Other: Image Reviewed (trelemetry:ventricular paced rhythm) Problem List - Problems (1) Leukopenia Assessment/Plan: level now WNL. On antibiotics. No growth blood cultures; negative flu. Code(s): D72.819 - DECREASED WHITE BLOOD CELL COUNT, UNSPECIFIED (2) Hypomagnesemia Assessment/Plan: repleted Mg ; now WNL. Code(s): E83.42 - HYPOMAGNESEMIA (3) Acute chronic obstructive pulmonary disease with respiratory distress Code(s): J44.9 - CHRONIC OBSTRUCTIVE PULMONARY DISEASE, UNSPECIFIED; R06.03 - ACUTE RESPIRATORY DISTRESS (4) CAD (coronary artery disease) Assessment/Plan: f/u 2010 open heart surgery report: hx ?2 valves replaced; denies CABG or stents. Code(s): I25.10 - ATHSCL HEART DISEASE OF [place] CORONARY ARTERY W/O ANG PCTRS (5) Heart valve replaced Assessment/Plan: f/u records of prior cardiac surgery, valve replacements (MV; TV) 2010 at [facility]. ECHO : normal LVEF; prostehetic MV and TV; mild MR and TR; normal RVSP; mild TX ; normal chamber sizes. Leukopenic initially; now WNL, on antibiotics. Blood cultures and flu antigen negrative. Afebrile since admission. Code(s): Z95.2 - PRESENCE OF PROSTHETIC HEART VALVE (6) Pacemaker Code(s): Z95.0 - PRESENCE OF CARDIAC PACEMAKER (7) Pulmonary nodule Assessment/Plan: r/o lung CA; f/u with security technician. Code(s): R91.1 - SOLITARY PULMONARY NODULE (8) [place] cardiac risk >20% in next 10 years Assessment/Plan: f/u cardiac records for coronary artery anatomy/?lesions. Pt is followed at [facility] (PMD, registrar nurses' registry, EP). Code(s): Z91.89 - OTH PERSONAL RISK FACTORS, NOT ELSEWHERE CLASSIFIED (9) Acute on chronic diastolic (congestive) heart failure Assessment/Plan: ECHO noted; normal LVEF. Start losartan (HTN; CHF; DM). Code(s): I50.33 - ACUTE ON CHRONIC DIASTOLIC (CONGESTIVE) HEART FAILURE (10) Smokes cigarettes Assessment/Plan: on nicotine patch. Code(s): F17.210 - NICOTINE DEPENDENCE, CIGARETTES, UNCOMPLICATED
[2018-06-16] MEDS ORDERED: PATIENT'S OWN MEDICATION (NON-FORMULARY) (Fluoxetine Hcl [Prozac] 40 MG) PO SCH (10:00)
[2018-06-16] MEDS ORDERED: PATIENT'S OWN MEDICATION (NON-FORMULARY) (Alendronate Sodium [Binosto] 70 MG) PO SCH (10:00)
--- NOTE | 2018-06-16 10:17 | PN ---
Progress Note, Physician History of Present Illness: Awake and alert today Anxious about possible cancer dx No c/o chest pain/ dyspnea Denies hemoptysis Breathing non-labored on RA No c/o fever/ chills Temps down afebrile - Current Medication List Current Medications: Active Medications Albuterol Sulfate (Ventolin 0.083% Nebulizer Soln -) 1 amp NEB Q4H PRN PRN Reason: SHORTNESS OF BREATH Albuterol/Ipratropium (Duoneb -) 1 amp NEB RQID [facility] Last Admin: 06/15/18 20:30 Dose: 1 amp Aspirin (Asa -) 81 mg PO DAILY [facility] Last Admin: 06/15/18 11:44 Dose: 81 mg Atorvastatin Calcium (Lipitor -) 20 mg PO HS [facility] Last Admin: 06/15/18 21:17 Dose: 20 mg Chlorhexidine Gluconate (Hibiclens For Decolonization -) 1 applic TP HS [facility] Last Admin: 06/15/18 21:37 Dose: 1 applic Clonazepam (Klonopin -) 2 mg PO BID [facility] Last Admin: 06/15/18 21:17 Dose: 2 mg Enoxaparin Sodium (Lovenox -) 40 mg SQ DAILY [facility] Last Admin: 06/15/18 09:45 Dose: 40 mg Fluoxetine HCl (Prozac -) 40 mg PO DAILY [facility] Last Admin: 06/15/18 17:26 Dose: 40 mg Gabapentin (Neurontin -) 400 mg PO TID [facility] Last Admin: 06/16/18 06:25 Dose: 400 mg Cefepime HCl 1 gm/ Dextrose 100 mls @ 100 mls/hr IVPB Q8H-IV [facility]; Protocol Last Admin: 06/16/18 02:14 Dose: 100 mls/hr Vancomycin HCl (Vancomycin 1 Gm Premix -) 1 gm in 200 mls @ 133.333 mls/hr IVPB Q12H [facility]; Protocol Last Admin: 06/16/18 04:05 Dose: 133.333 mls/hr Insulin Aspart (Novolog Vial Sliding Scale -) 1 vial SQ ACHS [facility]; Protocol Last Admin: 06/16/18 06:31 Dose: 6 units Levothyroxine Sodium (Synthroid -) 100 mcg PO ACBK [facility] Last Admin: 06/16/18 06:25 Dose: 100 mcg Losartan Potassium (Cozaar -) 25 mg PO DAILY [facility] Lurasidone HCl (Latuda -) 80 mg PO DAILY [facility] Last Admin: 06/15/18 17:26 Dose: 80 mg Methylprednisolone Sodium Succinate (Solu-Medrol -) 40 mg IVPUSH Q8H-IV [facility] Last Admin: 06/16/18 02:20 Dose: 40 mg Montelukast Sodium (Singulair -) 10 mg PO HS [facility] Last Admin: 06/15/18 21:17 Dose: 10 mg Mupirocin (Bactroban Ointment (For Decolonization) -) 1 applic NS BID [facility] Stop: 06/19/18 09:59 Last Admin: 06/16/18 02:22 Dose: 1 applic Nicotine (Nicoderm Patch -) 7 mg TD DAILY [facility] Last Admin: 06/15/18 21:36 Dose: 7 mg Pantoprazole Sodium (Protonix -) 20 mg PO DAILY [facility] Pregabalin (Lyrica -) 100 mg PO BID [facility] Last Admin: 06/15/18 21:17 Dose: 100 mg Zolpidem Tartrate (Ambien -) 5 mg PO HS [facility] Last Admin: 06/15/18 21:23 Dose: 5 mg - Objective Vital Signs: Vital Signs Temperature 98.8 F 06/16/18 06:00 Pulse Rate 74 06/16/18 08:00 Respiratory Rate 20 06/16/18 08:00 Blood Pressure 101/72 06/16/18 08:00 O2 Sat by Pulse Oximetry (%) 97 06/15/18 23:31 Constitutional: Yes: No Distress Eyes: Yes: Conjunctiva Clear Cardiovascular: Yes: Regular Rate and Rhythm, S1, S2 Respiratory: Yes: Rhonchi Gastrointestinal: Yes: Normal Bowel Sounds, Soft. No: Tenderness Edema: No Labs: CBC, BMP 06/16/18 05:30 06/16/18 05:30 INR, PTT INR 0.97 (0.83-1.09) 06/13/18 17:55 Assessment/Plan Acute exacerbation COPD RLL lung mass, possible neoplasm ? cavitary RUL lung lesion R/O endocarditis await c/s, sputum AFB BC prelim (-) Continue cefepime D/C vancomycin
[2018-06-16] MEDS ORDERED: PT OWN MED DRAWER 7, Y5N ONE ×2 (10:31→17:01)
[2018-06-16] MEDS: clonazePAM 0.5 MG TABLET PO SCH ×2 (10:36→22:03)
[2018-06-16] MEDS: PREGABALIN 100 MG CAPSULE PO SCH ×2 (10:37→22:03)
[2018-06-16] MEDS: ASPIRIN 81 MG CHEWABLE TABLETS PO SCH (10:38)
[2018-06-16] MEDS: LOSARTAN POTASSIUM 25 MG TABLET PO SCH (10:38)
[2018-06-16] MEDS: FLUoxetine HCL 20 MG CAPSULE (FP) PO SCH (10:39)
[2018-06-16] MEDS: LURASIDONE HCL 40 MG TABLET PO SCH (10:39)
[2018-06-16] MEDS: PANTOPRAZOLE 20 MG TABLET (FP) PO SCH (10:52)
[2018-06-16] MEDS: NICOTINE 7 MG/24 HOURS TOPICAL PATCH TD SCH (10:53)
[2018-06-16] MEDS: ENOXAPARIN NA (PORCINE) 40 MG/0.4 ML DISP.SYRIN SQ SCH (10:53)
--- NOTE | 2018-06-16 13:05 | PN ---
Physical Exam: SUBJECTIVE: Patient seen and examined. No acute events overnight. Pt. was on 3L NC when needed at home, has been unable to get refill for oxygen. Pt. is now asking for oxygen. OBJECTIVE: Vital Signs Period Temp Pulse Resp BP Sys/[place] Pulse Ox Last 24 Hr 98.2 F-98.8 F 71-94 20-25 100-137/60-110 96-97 GENERAL: The patient is awake, alert, and fully oriented, in no acute distress. HEAD: Normal with no signs of trauma. EYES: PERRL, extraocular movements intact, sclera anicteric, conjunctiva clear. No ptosis. ENT: Ears normal, nares patent, oropharynx clear without exudates, moist mucous membranes. NECK: Trachea midline, full range of motion, supple. LUNGS: Breath sounds equal, clear to auscultation bilaterally, no wheezes, no crackles, no accessory muscle use. HEART: Regular rate and rhythm, S1, S2 without murmur, rub or gallop. ABDOMEN: Soft, nontender, nondistended, normoactive bowel sounds, no guarding, no rebound, no hepatosplenomegaly, no masses. EXTREMITIES: 2+ pulses, warm, well-perfused, no edema. NEUROLOGICAL: Cranial nerves II through XII grossly intact. Normal speech, gait not observed. PSYCH: Normal mood, normal affect. SKIN: Warm, dry, normal turgor, no rashes or lesions noted Laboratory Results - last 24 hr 06/13/18 06/15/18 06/15/18 19:00 17:17 21:54 WBC RBC Hgb Hct MCV MCH MCHC RDW Plt Count MPV Absolute Neuts (auto) Neutrophils % Lymphocytes % Monocytes % Eosinophils % Basophils % Nucleated RBC % Sodium Potassium Chloride Carbon Dioxide Anion Gap BUN Creatinine Creat Clearance w eGFR POC Glucometer 232.28363 [phone] Random Glucose Hemoglobin A1c % Calcium Phosphorus Magnesium Vancomycin Pre-Dose HIV 1&2 Ag/Ab, 4th Gen Non reactive 06/16/18 06/16/18 06/16/18 05:30 05:30 05:30 WBC 7.0 RBC 3.55 L Hgb 10.9 Hct 33.4 MCV 93.9 MCH 30.8 MCHC 32.8 RDW 14.0 Plt Count 178 MPV 8.5 Absolute Neuts (auto) 6.3 Neutrophils % 89.9 H D Lymphocytes % 7.2 L D Monocytes % 2.9 L Eosinophils % 0.0 D Basophils % 0.0 Nucleated RBC % 0 Sodium 136 Potassium 4.5 Chloride 104 Carbon Dioxide 27 Anion Gap 5 L BUN 25 H Creatinine 0.7 Creat Clearance w eGFR > 60 POC Glucometer Random Glucose 256 H Hemoglobin A1c % 6.1 Calcium 8.9 Phosphorus 3.2 Magnesium 2.0 Vancomycin Pre-Dose HIV 1&2 Ag/Ab, 4th Gen 06/16/18 06/16/18 06:28 09:47 WBC RBC Hgb Hct MCV MCH MCHC RDW Plt Count MPV Absolute Neuts (auto) Neutrophils % Lymphocytes % Monocytes % Eosinophils % Basophils % Nucleated RBC % Sodium Potassium Chloride Carbon Dioxide Anion Gap BUN Creatinine Creat Clearance w eGFR POC Glucometer [phone] Random Glucose Hemoglobin A1c % Calcium Phosphorus Magnesium Vancomycin Pre-Dose 32.5 H* HIV 1&2 Ag/Ab, 4th Gen Active Medications Current Medications Albuterol Sulfate (Ventolin 0.083% Nebulizer Soln -) 1 amp NEB Q4H PRN PRN Reason: SHORTNESS OF BREATH Albuterol/Ipratropium (Duoneb -) 1 amp NEB RQID [facility] Last Admin: 06/15/18 20:30 Dose: 1 amp Aspirin (Asa -) 81 mg PO DAILY [facility] Last Admin: 06/16/18 10:38 Dose: 81 mg Atorvastatin Calcium (Lipitor -) 20 mg PO HS [facility] Last Admin: 06/15/18 21:17 Dose: 20 mg Chlorhexidine Gluconate (Hibiclens For Decolonization -) 1 applic TP [facility] Last Admin: 06/15/18 21:37 Dose: 1 applic Clonazepam (Klonopin -) 2 mg PO BID [facility] Last Admin: 06/16/18 10:36 Dose: 2 mg Enoxaparin Sodium (Lovenox -) 40 mg SQ DAILY [facility] Last Admin: 06/16/18 10:53 Dose: 40 mg Fluoxetine HCl (Prozac -) 40 mg PO DAILY [facility] Last Admin: 06/16/18 10:39 Dose: 40 mg Gabapentin (Neurontin -) 400 mg PO TID [facility] Last Admin: 06/16/18 06:25 Dose: 400 mg Cefepime HCl 1 gm/ Dextrose 100 mls @ 100 mls/hr IVPB Q8H-IV [facility]; Protocol Last Admin: 06/16/18 10:40 Dose: 100 mls/hr Insulin Aspart (Novolog Vial Sliding Scale -) 1 vial SQ ACHS [facility]; Protocol Last Admin: 06/16/18 12:47 Dose: 8 units Levothyroxine Sodium (Synthroid -) 100 mcg PO ACBK [facility] Last Admin: 06/16/18 06:25 Dose: 100 mcg Losartan Potassium (Cozaar -) 25 mg PO DAILY [facility] Last Admin: 06/16/18 10:38 Dose: 25 mg Lurasidone HCl (Latuda -) 80 mg PO DAILY [facility] Last Admin: 06/16/18 10:39 Dose: 80 mg Methylprednisolone Sodium Succinate (Solu-Medrol -) 40 mg IVPUSH Q8H-IV [facility] Last Admin: 06/16/18 10:53 Dose: 40 mg Montelukast Sodium (Singulair -) 10 mg PO HS [facility] Last Admin: 06/15/18 21:17 Dose: 10 mg Mupirocin (Bactroban Ointment (For Decolonization) -) 1 applic NS BID [facility] Stop: 06/19/18 09:59 Last Admin: 06/16/18 10:53 Dose: 1 applic Nicotine (Nicoderm Patch -) 7 mg TD DAILY [facility] Last Admin: 06/16/18 10:53 Dose: 7 mg Pantoprazole Sodium (Protonix -) 20 mg PO DAILY [facility] Last Admin: 06/16/18 10:52 Dose: 20 mg Pregabalin (Lyrica -) 100 mg PO BID [facility] Last Admin: 06/16/18 10:37 Dose: 100 mg Zolpidem Tartrate (Ambien -) 5 mg PO HS [facility] Last Admin: 06/15/18 21:23 Dose: 5 mg ASSESSMENT/PLAN: 53 y/o homeless F with PMH CAD s/p PPM, COPD (not on home O2), asthma, hx multiple PE (unclear whether on a/c; non compliant with meds), multiple episodes of PNA, endocarditis, hx IVDA (heroin, 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 Pt admitted for acute hypercapnic resp failure 2/2 possible COPD exacerbation, as well as sepsis 2/2 unknown etiology. PULM #Acute hypercapnic resp failure 2/2 possible COPD exacerbation-resolved -Pt. on 3L NC with SpO2 95% -duonebs QIDR, albuterol nebs q4h PRN -decreased solumedrol to 40mg IVP q8h #Hemoptysis -r/o Tb; f/u quantiferon -f/u Third Sputum Cx. , No AFB seen in sputum smear in 2/3 Sputum cultures- Can D/C isolation precautions if all 3 cultures are negative. -initial HIV test (-) -will place in isolation as results still pending -CTA: Negative for PE, 1.2cm RLL nodule, cardiac valve replacements and pacemaker with additional wires, F/u CT in 6 weeks. CARDIO # r/o Endocarditis -TTE (06/15/18): showed EF: 60-65%, mild TR and MR, no vegetations seen, LV nml in size and function. -CATHLEEN can be done for more sensitive r/o of endocarditis if indicated. -murmur on PE appreciated -no current source of infection -Hx. of cardiac surgery for valve replacements and pacemaker placement appreciated and noted. ID #Sepsis 2/2 unknown etiology -Currently without infectious source; no evidence of infiltrate on CXR, UA; lactic WNL -Echo appreciated as noted above -c/w Cefepime, hold Vancomycin as Vancomycin level is 32.5 (supra-therapeutic) -F/u blood cx, urine cx -ID consult: Dr. Ocasio NEURO/PSYCH #AMS -possibly 2/2 infectious cause, or hypercapnia 2/2 COPD exacerbation -Head CT: No acute Pathology -restarted Latuda, Prozac and Klonipin #IVDA -F/u Rpt. UTox. will start Suboxone once systemically clear of opiates, per Dr. Carlton #Bipolar Depression -restarted Latuda, Prozac and Klonipin #Pain 2/2 Fractures from prior fall and Diabetic neuropathy -c/w Gabapentin and Lyrica Endocrine #DM-stable -ISS -BGM #Hypothyroidism-stable -c/w Synthroid 100mg Heme #Hx multiple PE-stable -c/w Lovenox #Weight loss, night sweats -may need heme consult; ?malignancy Renal #Hyperkalemia-resolved -K+: 4.6 -f/u AM BMP #F/E/N D/C IVF, encourage PO intake continue to monitor electrolytes Diabetic Diet, Speech and Swallow consult appreciated #PPX DVT: Lovenox 40mg SQ #Dispo Med/Surg Dispo: We will continue to follow the patient. Thank you for this consultative opportunity. Visit type - Emergency Visit Emergency Visit: Yes ED Registration Date: 06/13/18 Care time: The patient presented to the Emergency Department on the above date and was hospitalized for further evaluation of their emergent condition. - New Patient This patient is new to me today: No - Critical Care Critical Care patient: Yes Total Critical Care Time (in minutes): 42 Critical Care Statement: The care of this patient involved high complexity decision making to prevent further life threatening deterioration of the patient 's condition and/or to evaluate & treat vital organ system(s) failure or risk of failure. - Discharge Referral Referred to [facility] Med P.C.: No
--- NOTE | 2018-06-16 13:19 | PN ---
Teaching Attending Note Name of Resident: Hever Degroot ATTENDING PHYSICIAN STATEMENT I saw and evaluated the patient. I reviewed the resident's note and discussed the case with the resident. I agree with the resident's findings and plan as documented. SUBJECTIVE: Pt seen and examined in the ICU. Breathing continues to improve. No fevers. OBJECTIVE: Vital Signs Period Temp Pulse Resp BP Sys/[place] Pulse Ox Last 24 Hr 98.2 F-98.8 F 71-94 20-25 100-137/32-110 96-97 Intake & Output 06/13/18 06/14/18 06/15/18 06/16/18 23:59 23:59 23:59 23:59 Intake Total 490 1890 250 Output Total 1100 400 Balance -610 1490 250 Weight 51.256 kg 61.235 kg 61.235 kg Gen: mildly tachypneic at rest Heart: RRR Lung: distant breath sounds Abd: soft, nontender Ext: no edema CBC, BMP 06/16/18 05:30 06/16/18 05:30 Active Medications Albuterol Sulfate (Ventolin 0.083% Nebulizer Soln -) 1 amp NEB Q4H PRN PRN Reason: SHORTNESS OF BREATH Albuterol/Ipratropium (Duoneb -) 1 amp NEB RQID [facility] Last Admin: 06/15/18 20:30 Dose: 1 amp Aspirin (Asa -) 81 mg PO DAILY [facility] Last Admin: 06/16/18 10:38 Dose: 81 mg Atorvastatin Calcium (Lipitor -) 20 mg PO [facility] Last Admin: 06/15/18 21:17 Dose: 20 mg Chlorhexidine Gluconate (Hibiclens For Decolonization -) 1 applic TP [facility] Last Admin: 06/15/18 21:37 Dose: 1 applic Clonazepam (Klonopin -) 2 mg PO BID [facility] Last Admin: 06/16/18 10:36 Dose: 2 mg Enoxaparin Sodium (Lovenox -) 40 mg SQ DAILY [facility] Last Admin: 06/16/18 10:53 Dose: 40 mg Fluoxetine HCl (Prozac -) 40 mg PO DAILY [facility] Last Admin: 06/16/18 10:39 Dose: 40 mg Gabapentin (Neurontin -) 400 mg PO TID [facility] Last Admin: 06/16/18 06:25 Dose: 400 mg Cefepime HCl 1 gm/ Dextrose 100 mls @ 100 mls/hr IVPB Q8H-IV [facility]; Protocol Last Admin: 06/16/18 10:40 Dose: 100 mls/hr Insulin Aspart (Novolog Vial Sliding Scale -) 1 vial SQ ACHS [facility]; Protocol Last Admin: 06/16/18 12:47 Dose: 8 units Levothyroxine Sodium (Synthroid -) 100 mcg PO ACBK [facility] Last Admin: 06/16/18 06:25 Dose: 100 mcg Losartan Potassium (Cozaar -) 25 mg PO DAILY [facility] Last Admin: 06/16/18 10:38 Dose: 25 mg Lurasidone HCl (Latuda -) 80 mg PO DAILY [facility] Last Admin: 06/16/18 10:39 Dose: 80 mg Methylprednisolone Sodium Succinate (Solu-Medrol -) 40 mg IVPUSH Q8H-IV [facility] Last Admin: 06/16/18 10:53 Dose: 40 mg Montelukast Sodium (Singulair -) 10 mg PO HS [facility] Last Admin: 06/15/18 21:17 Dose: 10 mg Mupirocin (Bactroban Ointment (For Decolonization) -) 1 applic NS BID [facility] Stop: 06/19/18 09:59 Last Admin: 06/16/18 10:53 Dose: 1 applic Nicotine (Nicoderm Patch -) 7 mg TD DAILY [facility] Last Admin: 06/16/18 10:53 Dose: 7 mg Pantoprazole Sodium (Protonix -) 20 mg PO DAILY [facility] Last Admin: 06/16/18 10:52 Dose: 20 mg Pregabalin (Lyrica -) 100 mg PO BID [facility] Last Admin: 06/16/18 10:37 Dose: 100 mg Zolpidem Tartrate (Ambien -) 5 mg PO HS [facility] Last Admin: 06/15/18 21:23 Dose: 5 mg ASSESSMENT AND PLAN: Acute on Chronic Hypoxic and Hypercapneic Respiratory Failure improving Acute COPD Exacerbation Pneumonia Hemoptysis Sepsis CAD HTN DM Hep C - continue medrol - inhaled bronchodilators - O2 to keep SpO2 >90% - BiPAP as needed - f/u quantiferon - continue antibiotics - f/u cultures - send urine antigens - can monitor on floor
--- NOTE | 2018-06-16 14:28 | PN ---
Physical Exam: SUBJECTIVE: Patient seen and examined at bedside this morning. Patient reports feeling better. Denies chest pain, palpitations, fever, chills, abdominal pain, diarrhea, constipation. No acute events overnight. 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 EYES: PERRLA, sclera anicteric, conjunctiva clear. ENT: Ears normal, nares patent, oropharynx clear without exudates, moist mucous membranes. NECK: Trachea midline, full range of motion, supple. LUNGS: Clear to auscultation, bilaterally HEART: Regular rate and rhythm, S1, S2 without murmur, rub or gallop. ABDOMEN: Soft, nontender, nondistended, normoactive bowel sounds. EXTREMITIES: 2+ pulses, warm, well-perfused, no edema. NEUROLOGICAL: Cranial nerves II through XII grossly intact. Normal speech, gait not observed. PSYCH: Appropriate mood and affect. SKIN: Warm, dry, normal turgor, no rashes or lesions noted. Laboratory Results - last 24 hr 06/15/18 06/15/18 06/16/18 17:17 21:54 05:30 WBC 7.0 RBC 3.55 L Hgb 10.9 Hct 33.4 MCV 93.9 MCH 30.8 MCHC 32.8 RDW 14.0 Plt Count 178 MPV 8.5 Absolute Neuts (auto) 6.3 Neutrophils % 89.9 H D Lymphocytes % 7.2 L D Monocytes % 2.9 L Eosinophils % 0.0 D Basophils % 0.0 Nucleated RBC % 0 Sodium Potassium Chloride Carbon Dioxide Anion Gap BUN Creatinine Creat Clearance w eGFR POC Glucometer [phone] Random Glucose Hemoglobin A1c % Calcium Phosphorus Magnesium Vancomycin Pre-Dose 06/16/18 06/16/18 06/16/18 05:30 05:30 06:28 WBC RBC Hgb Hct MCV MCH MCHC RDW Plt Count MPV Absolute Neuts (auto) Neutrophils % Lymphocytes % Monocytes % Eosinophils % Basophils % Nucleated RBC % Sodium 136 Potassium 4.5 Chloride 104 Carbon Dioxide 27 Anion Gap 5 L BUN 25 H Creatinine 0.7 Creat Clearance w eGFR > 60 POC Glucometer [phone] Random Glucose 256 H Hemoglobin A1c % 6.1 Calcium 8.9 Phosphorus 3.2 Magnesium 2.0 Vancomycin Pre-Dose 06/16/18 06/16/18 09:47 12:42 WBC RBC Hgb Hct MCV MCH MCHC RDW Plt Count MPV Absolute Neuts (auto) Neutrophils % Lymphocytes % Monocytes % Eosinophils % Basophils % Nucleated RBC % Sodium Potassium Chloride Carbon Dioxide Anion Gap BUN Creatinine Creat Clearance w eGFR POC Glucometer [phone] Random Glucose Hemoglobin A1c % Calcium Phosphorus Magnesium Vancomycin Pre-Dose 32.5 H* Active Medications Generic Name Dose Route Start Last Admin Trade Name Freq PRN Reason Stop Dose Admin Albuterol Sulfate 1 amp 06/14/18 00:30 Ventolin 0.083% Nebulizer Soln - NEB Q4H PRN SHORTNESS OF BREATH Albuterol/Ipratropium 1 amp 06/14/18 02:00 06/16/18 12:00 Duoneb - NEB 1 amp RQID RANDAL Administration Aspirin 81 mg 06/15/18 11:30 06/16/18 10:38 Asa - PO 81 mg DAILY RANDAL Administration Atorvastatin Calcium 20 mg 06/15/18 22:00 06/15/18 21:17 Lipitor - PO 20 mg HS RANDAL Administration Chlorhexidine Gluconate 1 applic 06/14/18 22:00 06/15/18 21:37 Hibiclens For Decolonization - TP 1 applic HS RANDAL Administration Clonazepam 2 mg 06/15/18 11:30 06/16/18 10:36 Klonopin - PO 2 mg BID RANDAL Administration Enoxaparin Sodium 40 mg 06/14/18 11:30 10/02/18 10:53 Lovenox - SQ 40 mg DAILY RANDAL Administration Fluoxetine HCl 40 mg 06/15/18 12:00 06/16/18 10:39 Prozac - PO 40 mg DAILY RANDAL Administration Gabapentin 400 mg 06/15/18 14:00 06/16/18 14:01 Neurontin - PO 400 mg TID RANDAL Administration Cefepime HCl 1 gm/ Dextrose 100 mls @ 100 mls/hr 06/14/18 15:00 06/16/18 10: 40 IVPB 100 mls/hr Q8H-IV RANDAL Administration Protocol Insulin Aspart 1 vial 06/14/18 07:00 06/16/18 12:47 Novolog Vial Sliding Scale - SQ 8 units ACHS RANDAL Administration Protocol Levothyroxine Sodium 100 mcg 06/15/18 11:30 06/16/18 06:25 Synthroid - PO 100 mcg ACBK RANDAL Administration Losartan Potassium 25 mg 06/16/18 10:00 06/16/18 10:38 Cozaar - PO 25 mg DAILY RANDAL Administration Lurasidone HCl 80 mg 06/15/18 12:00 06/16/18 10:39 Latuda - PO 80 mg DAILY RANDAL Administration Methylprednisolone Sodium Succinate 40 mg 06/15/18 12:09 06/16/18 10:53 Solu-Medrol - IVPUSH 40 mg Q8H-IV RANDAL Administration Montelukast Sodium 10 mg 06/15/18 22:00 06/15/18 21:17 Singulair - PO 10 mg HS RANDAL Administration Mupirocin 1 applic 06/14/18 10:00 06/16/18 10:53 Bactroban Ointment (For Decolonization) - NS 06/19/18 09:59 1 applic BID RANDAL Administration Nicotine 7 mg 06/15/18 17:00 06/16/18 10:53 Nicoderm Patch - TD 7 mg DAILY RANDAL Administration Pantoprazole Sodium 20 mg 06/16/18 10:00 06/16/18 10:52 Protonix - PO 20 mg DAILY RANDAL Administration Pregabalin 100 mg 06/15/18 22:00 06/16/18 10:37 Lyrica - PO 100 mg BID RANDAL Administration Zolpidem Tartrate 5 mg 06/15/18 22:00 06/15/18 21:23 Ambien - PO 5 mg HS RANDAL Administration Imaging: CXR (06/13/18) - No infiltrate or consolidation, no edema in the lungs. Chest CTA - No evidence of acute pulmonary emboli. 1.2cm nodular opacity right lower lobe. Neoplasm cannot be excluded. Head CT without contrast - No acute bleed or mass or fracture. No CT evidence of acute infarct. CXR (06/15/18) - No acute change since prior study. Echo - LV is normal in size. LV systolic function is normal. No regional wall motion abnormalities. EF = 60-65%. LA size is normal. RA size is normal. There is a bioprosthetic mitral valve. The prosthetic mitral valve is well-seated. The prosthetic mitral valve appears to open well. There is mild mitral regurgitation. There is a bioprothetic tricuspid valve. There is mild tricuspid regurgitation. RV systolic pressure is normal. There is mild aortic sclerosis. Mild pulmonic valvular regurgitation. There is a pacemaker lead in the right ventricle. No obvious vegetations. Clinical correlation is recommended. There is no pericardial effusion. ASSESSMENT/PLAN: 53 year old female with a known pmh of COPD, asthma, HCV, DM, HTN, CAD s/p pacemaker, and kidney disease was brought to the hospital by brother for > 1 week of fevers, hemoptysis, night sweats, dyspnea, nausea vomiting and diarrhea , headache and neck pain. #Acute Hypercapnic Respiratory Failure: likely 2/2 COPD exacerbation, resolved -Duonebs Q6h -Solumedrol IV decreased to 40mg q8h -Albuterol nebs q4h PRN -on 3L NC with SpO2 95% #SIRS/ Hemoptysis: unclear etiology -HIV negative -quantiferon gold pending -Sputum AFB culture negative x2. Awaiting 3rd sputum culture. -blood culture, urine culture -CXR - No infiltrate or consolidation, no edema in the lungs. -ID (Dr. Ocasio) consulted. Recommendations appreciated. -Continue Cefepime (Day 3) -Hold vancomycin as trough level is supra-therapeutic (32.5) -Isolation precaution pending culture results. -CTA: Negative for PE, 1.2cm RLL nodule, cardiac valve replacements and pacemaker with additional wires -F/u CT in 6 weeks. #Altered Mental Status: likely 2/2 CO2 retention and hypercarcbia -Head CT - No acute bleed or mass or fracture. No CT evidence of acute infarct. #Bipolar type 2 -Called [facility] where patient sees Dr. Hair for psychiatric evaluation -Patient on Ambien, Klonopin, Latuda and Prozac. #Hypothyroidism -Continue Synthroid 100mcg. -TSH 0.09, T4 pending. #Hx of Endocarditis -Echo -LV is normal in size. LV systolic function is normal. No regional wall motion abnormalities. EF = 60-65%. LA size is normal. RA size is normal. There is a bioprosthetic mitral valve. The prosthetic mitral valve is well-seated. The prosthetic mitral valve appears to open well. There is mild mitral regurgitation. There is a bioprothetic tricuspid valve. There is mild tricuspid regurgitation. RV systolic pressure is normal. There is mild aortic sclerosis. Mild pulmonic valvular regurgitation. There is a pacemaker lead in the right ventricle. No obvious vegetations. Clinical correlation is recommended. There is no pericardial effusion. #DM: glucose 150 -On Glargine 30 units HS at home. -BGM Q6h -ISS #HTN: patient is normotensive -Continue home medications #CAD s/p Pacemaker: not an acute issue -continue home medications. #IV Drug abuse -Urine toxicology: +opiates and +benzodiazepines -Patient on ?Methadone 10mg TID -Detox (Dr. Carlton) consulted. Recommendations appreciated: -Pt has COWS withdrawal score of 10. -Will start suboxone once urine toxicology comes back negative for opioids. -Pt given a follow up appointment for Suboxone intake and treatment at [facility] for 06/24/[address] [place] [address]. -call if need help with Suboxone titration and for discharge: [phone]. #FEN -Not on any standing fluids -Encourage increased oral fluid intake -Electrolytes wnl, routine bmp monitoring -Diabetic diet #Prophylaxis -SCDs #Disposition -Transfer to med-surg -Isolation precaution pending cultures Visit type - Emergency Visit Emergency Visit: Yes ED Registration Date: 06/13/18 Care time: The patient presented to the Emergency Department on the above date and was hospitalized for further evaluation of their emergent condition. - New Patient This patient is new to me today: Yes Date on this admission: 06/16/18 - Critical Care Critical Care patient: Yes Total Critical Care Time (in minutes): 40 Critical Care Statement: The care of this patient involved high complexity decision making to prevent further life threatening deterioration of the patient 's condition and/or to evaluate & treat vital organ system(s) failure or risk of failure.
--- NOTE | 2018-06-16 17:41 | PN ---
Teaching Attending Note Name of Resident: Sridevi Patel ATTENDING PHYSICIAN STATEMENT I saw and evaluated the patient. I reviewed the resident's note and discussed the case with the resident. I agree with the resident's findings and plan as documented. SUBJECTIVE:cough has improved. scants amount of white sputum. no blood. denies CP, SOB, fever, chills, night sweats. admits to intentional weight loss OBJECTIVE: Last Vital Signs Temp Pulse Resp BP Pulse Ox 98.7 F 92 H 20 120/80 95 06/16/18 13:22 06/16/18 16:00 06/16/18 16:00 06/16/18 16:00 06/16/18 09:00 General NAD CV S1 S2 RRR +murmur Lungs scattered wheezing. no rales or crackles Abdomen soft NT/ND ASSESSMENT AND PLAN: 53 yo F with reported PMHx of CAD s/p PPM, COPD (not on home ), asthma, hx multiple PE (unclear whether on a/c; non compliant with meds), multiple episodes of PNA, endocarditis, hx IVDA (heroin, 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 1. Acute hypoxic/hypercapneic respiratory failure- possible due to COPD exacerbation vs PNA. clinically improving. saturating 95% on 3L NC. medrol 40mg Q8H, on cefepime day 3. vanco held due to elevated level. titrate down supplemental oxygen as tolerated. check pre and post prior to discharge. pulmonary on board 2. Sepsis due to PNA however concern for TB- given presenting symptoms and being homeless. pt is unaware when last PPD was placed but thinks she had it in the past. no clinical concern for endo at this time. negative BCx and no vegetations seen on TTE. on cefpime day 3. vanco level was high and dose was held. AFB neg x2. quant pending. HIV negative. on airborne isolation. ID on board. f/u cx 3. RLL spiculated mass- 1.2cm seen. will need repeat imaging to further evaluate for further workup 4. s/p PPM 5. Mitral/Tricuspid valve replacements, ?h/o infective endocarditis 6. Continuous polysubstance abuse -Utox + BZD and opiates on arrival. admits to nicotine use. on patch. counselled on risks assoc with illicit drug use. not interested in inpatient rehab as she has too many things to tend to at home. detox specialist consulted 7. ?H/o multiple PE., 8. DVT ppx- lovenox 9. stable for transfer to floors. 10. wants to sign out AMA if can not be discharged "soon" explained will need to r/o TB prior to her being able to leave the hospital. verbalized understanding and willing to stay The care of this patient involved high complexity decision making to prevent further life threatening deterioration of the patient's condition and/or to evaluate & treat vital organ system(s) failure or risk of failure. 40 mins
[2018-06-16 19:11] LABS: COCAINE, UR NEGATIVE ng/ml (CUTOFF=300); URINE AMPHETAMINES NEGATIVE ng/ml (CUTOFF=500); URINE BARBITURATES NEGATIVE ng/ml (CUTOFF=200)
[2018-06-16 19:12] LABS: PHENCYCLIDINE,URINE NEGATIVE ng/ml (CUTOFF=25)
[2018-06-16 19:13] LABS: METHADONE, UR NEGATIVE ng/ml (CUTOFF=300)
[2018-06-16 19:14] LABS: OPIATES, URI POSITIVE ng/ml (CUTOFF=300); URINE BENZODIAZEPINES POSITIVE ng/ml (CUTOFF=200)
[2018-06-16] MEDS: MONTELUKAST NA 10 MG TABLET PO SCH (22:03)
[2018-06-16] MEDS: ZOLPIDEM TARTRATE 5 MG TABLET PO SCH (22:03)
[2018-06-16] MEDS: ATORVASTATIN CA 20 MG TABLET (FP) PO SCH (22:03)
[2018-06-17 00:18] LABS: GLUCOSE,RANDOM 545 mg/dL (74-106)
[2018-06-17] MEDS ORDERED: PT OWN MED DRAWER 7, Y5N ONE ×3 (01:40→16:55)
[2018-06-17] MEDS: CEFEPIME 1 GM in DEXTROSE 5%-WATER - 100 ML IVPB SCH ×3 (01:45→17:20)
[2018-06-17] MEDS: methylPREDNISolone NA SUCC 125 MG/2 ML VIAL IVPUSH SCH ×2 (01:46→10:33)
[2018-06-17] MEDS: CHLORHEXIDINE GLUCONATE 4% CLEANSER FOR DECOLONIZATION TP SCH (01:47)
[2018-06-17 03:31] LABS: ANION GAP 9 MMOL/L (8-16); BLOOD UREA NITROGEN 36 mg/dL (7-18); CHLORIDE 99 mmol/L (98-107); CO2 26 mmol/L (21-32); CREATININE 1.4 mg/dL (0.55-1.3); POTASSIUM 4.7 mmol/L (3.5-5.1); SODIUM 134 mmol/L (136-145)
[2018-06-17] MEDS: GABAPENTIN 400 MG CAPSULE (FP) PO SCH ×3 (05:12→21:07)
[2018-06-17] MEDS: LEVOTHYROXINE NA 100 MCG TABLET (FP) PO SCH (06:13)
[2018-06-17] MEDS: INSULIN SLIDING SCALE (NOVOLOG) 1 VIAL SQ SCH ×5 (06:14→23:40)
[2018-06-17 06:42] LABS: HEMATOCRIT 30.6 % (32.4-45.2); HEMOGLOBIN 10.2 GM/dL (10.7-15.3); MCH 31.3 pg (25.7-33.7); MCHC 33.3 g/dl (32.0-36.0); MEAN CELL VOLUME 93.9 fl (80-96); MEAN PLT VOLUME 8.5 fl (7.5-11.1); PLATELET COUNT 175 K/MM3 (134-434); RBC 3.26 M/mm3 (3.60-5.2); WHITE BLOOD COUNT 7.2 K/mm3 (4.0-10.0)
[2018-06-17 06:43] LABS: ANION GAP 9 MMOL/L (8-16); BLOOD UREA NITROGEN 31 mg/dL (7-18); CALCIUM 8.3 mg/dL (8.5-10.1); CHLORIDE 103 mmol/L (98-107); CO2 28 mmol/L (21-32); CREATININE 0.9 mg/dL (0.55-1.3); GLUCOSE,RANDOM 263 mg/dL (74-106); PHOSPHOROUS 3.2 mg/dL (2.5-4.9); POTASSIUM 4.4 mmol/L (3.5-5.1); SODIUM 140 mmol/L (136-145)
[2018-06-17] MEDS: ALBUTEROL SO4 2.5/IPRATROPIUM 0.5 INH SOL 3 ML VIAL.NEB. NEB SCH ×4 (08:05→21:25)
[2018-06-17] MEDS ORDERED: INSULIN (LEVEMIR) 100 UNITS/ML UNITS SQ ONE ×2 (08:17→22:00)
[2018-06-17] MEDS: clonazePAM 0.5 MG TABLET PO SCH ×2 (10:30→21:03)
[2018-06-17] MEDS: PANTOPRAZOLE 20 MG TABLET (FP) PO SCH (10:31)
[2018-06-17] MEDS: PREGABALIN 100 MG CAPSULE PO SCH ×2 (10:31→21:03)
[2018-06-17] MEDS: LOSARTAN POTASSIUM 25 MG TABLET PO SCH (10:31)
[2018-06-17] MEDS: ASPIRIN 81 MG CHEWABLE TABLETS PO SCH (10:31)
[2018-06-17] MEDS: LURASIDONE HCL 40 MG TABLET PO SCH (10:32)
[2018-06-17] MEDS: FLUoxetine HCL 20 MG CAPSULE (FP) PO SCH (10:32)
[2018-06-17] MEDS: MUPIROCIN 2% TOPICAL OINTMENT FOR DECOLONIZATION NS SCH ×2 (10:34)
[2018-06-17] MEDS: NICOTINE 7 MG/24 HOURS TOPICAL PATCH TD SCH (10:38)
[2018-06-17] MEDS: ENOXAPARIN NA (PORCINE) 40 MG/0.4 ML DISP.SYRIN SQ SCH (10:38)
[2018-06-17] MEDS ORDERED: dilTIAZem HCL 25 MG/5 ML - 5 ML VIAL ONE (10:51)
[2018-06-17] MEDS ORDERED: dilTIAZem HCL 125 MG/25 ML - 25 ML VIAL ONE (10:51)
--- NOTE | 2018-06-17 12:36 | PN ---
Teaching Attending Note Name of Resident: Hever Degroot ATTENDING PHYSICIAN STATEMENT I saw and evaluated the patient. I reviewed the resident's note and discussed the case with the resident. I agree with the resident's findings and plan as documented. SUBJECTIVE: Pt seen and examined in the ICU. Breathing better. No fevers recorded. Sputum AFB smears negative x 2. Quantiferon pending. OBJECTIVE: Vital Signs Period Temp Pulse Resp BP Sys/Maldonado Pulse Ox Last 24 Hr 97.8 F-98.8 F 76-121 18-23 105-140/32-96 95-100 Intake & Output 06/14/18 06/15/18 06/16/18 06/17/18 23:59 23:59 23:59 23:59 Intake Total 490 1890 1220 100 Output Total 1100 400 Balance -610 1490 1220 100 Weight 61.235 kg 61.235 kg 57.833 kg Gen: NAD at rest Heart: RRR Lung: scattered wheezes Abd: soft, nontender Ext: no edema CBC, BMP 06/17/18 05:30 06/17/18 05:30 Active Medications Albuterol Sulfate (Ventolin 0.083% Nebulizer Soln -) 1 amp NEB Q4H PRN PRN Reason: SHORTNESS OF BREATH Albuterol/Ipratropium (Duoneb -) 1 amp NEB RQID [facility] Last Admin: 06/17/18 11:15 Dose: 1 amp Aspirin (Asa -) 81 mg PO DAILY [facility] Last Admin: 06/17/18 10:31 Dose: 81 mg Atorvastatin Calcium (Lipitor -) 20 mg PO HS [facility] Last Admin: 06/16/18 22:03 Dose: 20 mg Chlorhexidine Gluconate (Hibiclens For Decolonization -) 1 applic TP [facility] Last Admin: 06/17/18 01:47 Dose: 1 applic Clonazepam (Klonopin -) 2 mg PO BID [facility] Last Admin: 06/17/18 10:30 Dose: 2 mg Enoxaparin Sodium (Lovenox -) 40 mg SQ DAILY [facility] Last Admin: 06/17/18 10:38 Dose: 40 mg Fluoxetine HCl (Prozac -) 40 mg PO DAILY [facility] Last Admin: 06/17/18 10:32 Dose: 40 mg Gabapentin (Neurontin -) 400 mg PO TID [facility] Last Admin: 06/17/18 05:12 Dose: 400 mg Cefepime HCl 1 gm/ Dextrose 100 mls @ 100 mls/hr IVPB Q8H-IV [facility]; Protocol Last Admin: 06/17/18 10:33 Dose: 100 mls/hr Insulin Aspart (Novolog Vial Sliding Scale -) 1 vial SQ ACHS [facility]; Protocol Last Admin: 06/17/18 06:14 Dose: 8 units Insulin Aspart (Novolog) 6 units SQ TIDAC [facility] Insulin Detemir (Levemir Vial) 20 units SQ HS ONE Stop: 06/17/18 22:01 Insulin Detemir (Levemir Vial) 30 units SQ HS [facility] Levothyroxine Sodium (Synthroid -) 100 mcg PO ACBK [facility] Last Admin: 06/17/18 06:13 Dose: 100 mcg Losartan Potassium (Cozaar -) 25 mg PO DAILY [facility] Last Admin: 06/17/18 10:31 Dose: 25 mg Lurasidone HCl (Latuda -) 80 mg PO DAILY [facility] Last Admin: 06/17/18 10:32 Dose: 80 mg Montelukast Sodium (Singulair -) 10 mg PO HS [facility] Last Admin: 06/16/18 22:03 Dose: 10 mg Mupirocin (Bactroban Ointment (For Decolonization) -) 1 applic NS BID [facility] Stop: 06/19/18 09:59 Last Admin: 06/17/18 10:34 Dose: 1 applic Nicotine (Nicoderm Patch -) 7 mg TD DAILY [facility] Last Admin: 06/17/18 10:38 Dose: 7 mg Pantoprazole Sodium (Protonix -) 20 mg PO DAILY [facility] Last Admin: 06/17/18 10:31 Dose: 20 mg Prednisone (Deltasone -) 40 mg PO DAILY [facility] Pregabalin (Lyrica -) 100 mg PO BID [facility] Last Admin: 06/17/18 10:31 Dose: 100 mg Zolpidem Tartrate (Ambien -) 5 mg PO [facility] Last Admin: 06/16/18 22:03 Dose: 5 mg ASSESSMENT AND PLAN: Acute on Chronic Hypoxic and Hypercapneic Respiratory Failure improving Acute COPD Exacerbation Pneumonia Hemoptysis Sepsis CAD HTN DM Hep C - can change steroids to PO prednisone 40mg daily - inhaled bronchodilators - O2 to keep SpO2 >90% - BiPAP as needed - f/u quantiferon - continue antibiotics - f/u cultures - can monitor on floor - will need outpt f/u of CT chest in 4-6 weeks and PET scan if nodule still present
[2018-06-17 12:58] LABS: COCAINE, UR NEGATIVE ng/ml (CUTOFF=300); METHADONE, UR NEGATIVE ng/ml (CUTOFF=300); OPIATES, URI NEGATIVE ng/ml (CUTOFF=300); PHENCYCLIDINE,URINE NEGATIVE ng/ml (CUTOFF=25); URINE AMPHETAMINES NEGATIVE ng/ml (CUTOFF=500); URINE BARBITURATES NEGATIVE ng/ml (CUTOFF=200)
[2018-06-17 13:02] LABS: URINE BENZODIAZEPINES POSITIVE ng/ml (CUTOFF=200)
--- NOTE | 2018-06-17 13:59 | PN ---
Teaching Attending Note Name of Resident: Sridevi Patel ATTENDING PHYSICIAN STATEMENT I saw and evaluated the patient. I reviewed the resident's note and discussed the case with the resident. I agree with the resident's findings and plan as documented. SUBJECTIVE:breathing improved. denies Cp, SOB, fever, chills, N/V/C/D OBJECTIVE: Last Vital Signs Temp Pulse Resp BP Pulse Ox 97.8 F 117 H 22 H 126/84 100 06/17/18 10:22 06/17/18 12:00 06/17/18 12:00 06/17/18 12:00 06/17/18 08:46 General NAD CV S1 S2 RRR +murmur Lungs scattered wheezing. no rales or crackles Abdomen soft NT/ND ASSESSMENT AND PLAN: 53 yo F with reported PMHx of CAD s/p PPM, COPD (not on home 02), asthma, hx multiple PE (unclear whether on a/c; non compliant with meds), multiple episodes of PNA, endocarditis, hx IVDA (heroin, 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 1. Acute hypoxic/hypercapneic respiratory failure- possible due to COPD exacerbation vs PNA. clinically improving. switched steroids over to po. on cefepime day 4. vanco held due to elevated level. titrate down supplemental oxygen as tolerated. check pre and post prior to discharge. pulmonary on board 2. Sepsis due to PNA however concern for TB- given presenting symptoms and being homeless. pt is unaware when last PPD was placed but thinks she had it in the past. no clinical concern for endo at this time. negative BCx and no vegetations seen on TTE. on cefpime day 4. vanco level was high and dose was held. AFB neg x2. awaiting 3rd specimen. quant pending. HIV negative. on airborne isolation. ID on board. f/u cx 3. RLL spiculated mass- 1.2cm seen. will need repeat imaging to further evaluate for further workup 4. s/p PPM 5. Mitral/Tricuspid valve replacements, ?h/o infective endocarditis 6. Continuous polysubstance abuse -Utox + BZD and opiates on arrival. admits to nicotine use. on patch. counselled on risks assoc with illicit drug use. not interested in inpatient rehab as she has too many things to tend to at home. detox specialist consulted 7. ?H/o multiple PE., 8. DVT ppx- lovenox 9. stable for transfer to floors. The care of this patient involved high complexity decision making to prevent further life threatening deterioration of the patient's condition and/or to evaluate & treat vital organ system(s) failure or risk of failure. 35 mins
--- NOTE | 2018-06-17 15:01 | PN ---
Physical Exam: SUBJECTIVE: Patient seen and examined at bedside this morning. Patient was reported to be agitated last night, asking for her medications. Klonopin and Ambien given. Patient calmed down. Patient today reports feeling well, with minimal shortness of breath. 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 EYES: PERRLA, sclera anicteric, conjunctiva clear. ENT: Ears normal, nares patent, oropharynx clear without exudates, moist mucous membranes. NECK: Trachea midline, full range of motion, supple. LUNGS: Clear to auscultation, bilaterally HEART: Regular rate and rhythm, S1, S2 without murmur, rub or gallop. ABDOMEN: Soft, nontender, nondistended, normoactive bowel sounds. EXTREMITIES: 2+ pulses, warm, well-perfused, no edema. NEUROLOGICAL: Cranial nerves II through XII grossly intact. Normal speech, gait not observed. PSYCH: Appropriate mood and affect. SKIN: Warm, dry, normal turgor, no rashes or lesions noted. Laboratory Results - last 24 hr 06/16/18 06/16/18 06/16/18 16:30 17:11 22:41 WBC RBC Hgb Hct MCV MCH MCHC RDW Plt Count MPV Sodium Potassium Chloride Carbon Dioxide Anion Gap BUN Creatinine Creat Clearance w eGFR POC Glucometer [phone] > 400 Random Glucose Calcium Phosphorus Magnesium Opiates Screen Positive A* Methadone Screen Negative Barbiturate Screen Negative Phencyclidine Screen Negative Ur Amphetamines Screen Negative MDMA (Ecstasy) Screen Negative Benzodiazepines Screen Positive A* Cocaine Screen Negative U Marijuana (THC) Screen Negative 06/16/18 06/17/18 06/17/18 23:00 05:16 05:30 WBC 7.2 RBC 3.26 L Hgb 10.2 L Hct 30.6 L MCV 93.9 MCH 31.3 MCHC 33.3 RDW 14.0 Plt Count 175 MPV 8.5 Sodium 134 L Potassium 4.7 Chloride 99 Carbon Dioxide 26 Anion Gap 9 BUN 36 H Creatinine 1.4 H Creat Clearance w eGFR 39.19 POC Glucometer [phone] Random Glucose 545 H* Calcium 8.0 L Phosphorus Magnesium Opiates Screen Methadone Screen Barbiturate Screen Phencyclidine Screen Ur Amphetamines Screen MDMA (Ecstasy) Screen Benzodiazepines Screen Cocaine Screen U Marijuana (THC) Screen 06/17/18 06/17/18 06/17/18 05:30 11:20 12:39 WBC RBC Hgb Hct MCV MCH MCHC RDW Plt Count MPV Sodium 140 Potassium 4.4 Chloride 103 Carbon Dioxide 28 Anion Gap 9 BUN 31 H Creatinine 0.9 Creat Clearance w eGFR > 60 POC Glucometer [phone] Random Glucose 263 H Calcium 8.3 L Phosphorus 3.2 Magnesium 2.0 Opiates Screen Negative Methadone Screen Negative Barbiturate Screen Negative Phencyclidine Screen Negative Ur Amphetamines Screen Negative MDMA (Ecstasy) Screen Negative Benzodiazepines Screen Positive A* Cocaine Screen Negative U Marijuana (THC) Screen Negative Active Medications Generic Name Dose Route Start Last Admin Trade Name Freq PRN Reason Stop Dose Admin Albuterol Sulfate 1 amp 06/14/18 00:30 Ventolin 0.083% Nebulizer Soln - NEB Q4H PRN SHORTNESS OF BREATH Albuterol/Ipratropium 1 amp 06/14/18 02:00 06/17/18 11:15 Duoneb - NEB 1 amp RQID RANDAL Administration Aspirin 81 mg 06/15/18 11:30 06/17/18 10:31 Asa - PO 81 mg DAILY RANDAL Administration Atorvastatin Calcium 20 mg 06/15/18 22:00 06/16/18 22:03 Lipitor - PO 20 mg HS RANDAL Administration Chlorhexidine Gluconate 1 applic 06/14/18 22:00 06/17/18 01:47 Hibiclens For Decolonization - TP 1 applic HS RANDAL Administration Clonazepam 2 mg 06/15/18 11:30 06/17/18 10:30 Klonopin - PO 2 mg BID RANDAL Administration Enoxaparin Sodium 40 mg 06/14/18 11:30 06/17/18 10:38 Lovenox - SQ 40 mg DAILY RANDAL Administration Fluoxetine HCl 40 mg 06/15/18 12:00 06/17/18 10:32 Prozac - PO 40 mg DAILY RANDAL Administration Gabapentin 400 mg 06/15/18 14:00 06/17/18 05:12 Neurontin - PO 400 mg TID RANDAL Administration Cefepime HCl 1 gm/ Dextrose 100 mls @ 100 mls/hr 06/14/18 15:00 06/17/18 10: 33 IVPB 100 mls/hr Q8H-IV RANDAL Administration Protocol Insulin Aspart 1 vial 06/14/18 07:00 06/17/18 12:43 Novolog Vial Sliding Scale - SQ 4 units ACHS RANDAL Administration Protocol Insulin Aspart 6 units 06/17/18 16:30 Novolog SQ TIDAC RANDAL Insulin Detemir 20 units 06/17/18 22:00 Levemir Vial SQ 06/17/18 22:01 HS ONE Insulin Detemir 30 units 06/18/18 22:00 Levemir Vial SQ HS RANDAL Levothyroxine Sodium 100 mcg 06/15/18 11:30 06/17/18 06:13 Synthroid - PO 100 mcg ACBK RANDAL Administration Losartan Potassium 25 mg 06/16/18 10:00 06/17/18 10:31 Cozaar - PO 25 mg DAILY RANDAL Administration Lurasidone HCl 80 mg 06/15/18 12:00 06/17/18 10:32 Latuda - PO 80 mg DAILY RANDAL Administration Montelukast Sodium 10 mg 06/15/18 22:00 06/16/18 22:03 Singulair - PO 10 mg HS RANDAL Administration Mupirocin 1 applic 06/14/18 10:00 06/17/18 10:34 Bactroban Ointment (For Decolonization) - NS 06/19/18 09:59 1 applic BID RANDAL Administration Nicotine 7 mg 06/15/18 17:00 06/17/18 10:38 Nicoderm Patch - TD 7 mg DAILY RANDAL Administration Pantoprazole Sodium 20 mg 06/16/18 10:00 06/17/18 10:31 Protonix - PO 20 mg DAILY RANDAL Administration Prednisone 40 mg 06/18/18 10:00 Deltasone - PO DAILY RANDAL Pregabalin 100 mg 06/15/18 22:00 06/17/18 10:31 Lyrica - PO 100 mg BID RANDAL Administration Zolpidem Tartrate 5 mg 06/15/18 22:00 06/16/18 22:03 Ambien - PO 5 mg HS RANDAL Administration Imaging: CXR (06/13/18) - No infiltrate or consolidation, no edema in the lungs. Chest CTA - No evidence of acute pulmonary emboli. 1.2cm nodular opacity right lower lobe. Neoplasm cannot be excluded. Head CT without contrast - No acute bleed or mass or fracture. No CT evidence of acute infarct. CXR (06/15/18) - No acute change since prior study. Echo - LV is normal in size. LV systolic function is normal. No regional wall motion abnormalities. EF = 60-65%. LA size is normal. RA size is normal. There is a bioprosthetic mitral valve. The prosthetic mitral valve is well-seated. The prosthetic mitral valve appears to open well. There is mild mitral regurgitation. There is a bioprothetic tricuspid valve. There is mild tricuspid regurgitation. RV systolic pressure is normal. There is mild aortic sclerosis. Mild pulmonic valvular regurgitation. There is a pacemaker lead in the right ventricle. No obvious vegetations. Clinical correlation is recommended. There is no pericardial effusion. Microbiology 06/16/18 12:45 Sputum - Expectorated Direct Acid Fast Bacilli Smear - Final 06/16/18 07:45 Sputum - Expectorated AFB Smear Concentration - Final 06/16/18 07:45 Sputum - Expectorated Direct Acid Fast Bacilli Smear - Final 06/16/18 07:45 Sputum - Expectorated Mycobacterial Culture - Preliminary 06/15/18 09:00 Sputum - Expectorated AFB Smear Concentration - Final 06/15/18 09:00 Sputum - Expectorated Direct Acid Fast Bacilli Smear - Final 06/15/18 09:00 Sputum - Expectorated Mycobacterial Culture - Preliminary 06/14/18 19:40 Sputum - Expectorated Gram Stain - Final 06/14/18 19:40 Sputum - Expectorated Sputum Culture - Final NORMAL RESPIRATORY JUSTA 06/13/18 19:00 Blood - Peripheral Venous Blood Culture - Preliminary NO GROWTH OBTAINED AFTER 72 HOURS, INCUBATION TO CONTINUE FOR 2 DAYS. 06/13/18 18:00 Blood - Peripheral Venous Blood Culture - Preliminary NO GROWTH OBTAINED AFTER 72 HOURS, INCUBATION TO CONTINUE FOR 2 DAYS. 06/13/18 17:55 Blood - Peripheral Venous Blood Culture - Preliminary NO GROWTH OBTAINED AFTER 72 HOURS, INCUBATION TO CONTINUE FOR 2 DAYS. ASSESSMENT/PLAN: 53 year old female with a known pmh of COPD, asthma, HCV, DM, HTN, CAD s/p pacemaker, and kidney disease was brought to the hospital by brother for > 1 week of fevers, hemoptysis, night sweats, dyspnea, nausea vomiting and diarrhea , headache and neck pain. #Acute Hypercapnic Respiratory Failure: likely 2/2 COPD exacerbation, resolved -Duonebs Q6h -Solumedrol IV decreased to 40mg daily -Albuterol nebs q4h PRN -on 3L NC with SpO2 95% -Pre and post exercise done. Patient stable on room air at rest, and would need 3L NC with exercise. #SIRS -HIV negative -quantiferon gold pending -Sputum AFB culture negative x3. Awaiting quantiferon. -blood culture, urine culture negative -CXR - No infiltrate or consolidation, no edema in the lungs. -ID (Dr. Ocasio) consulted. Recommendations appreciated. -Continue Cefepime (Day 4). -Hold vancomycin as trough level is supra-therapeutic (32.5) -Isolation precaution pending quant results. -CTA: Negative for PE, 1.2cm RLL nodule, cardiac valve replacements and pacemaker with additional wires -F/u CT in 6 weeks. #Altered Mental Status: likely 2/2 CO2 retention and hypercarcbia -Head CT - No acute bleed or mass or fracture. No CT evidence of acute infarct. #Bipolar type 2 -Called [facility] group where patient sees Dr. Hair for psychiatric evaluation -Patient on Ambien, Klonopin, Latuda and Prozac. #Hypothyroidism -Continue Synthroid 100mcg. -TSH 0.09, T4 pending. #Hx of Endocarditis -Echo -LV is normal in size. LV systolic function is normal. No regional wall motion abnormalities. EF = 60-65%. LA size is normal. RA size is normal. There is a bioprosthetic mitral valve. The prosthetic mitral valve is well-seated. The prosthetic mitral valve appears to open well. There is mild mitral regurgitation. There is a bioprothetic tricuspid valve. There is mild tricuspid regurgitation. RV systolic pressure is normal. There is mild aortic sclerosis. Mild pulmonic valvular regurgitation. There is a pacemaker lead in the right ventricle. No obvious vegetations. Clinical correlation is recommended. There is no pericardial effusion. #DM: -BGM 545 overnight, patient was given 12 units of insulin -Given 10units levemir this AM, and 20 units at HS -Will restart home dose Levemir 30 units HS tomorrow. -BGM Q6h -ISS -Will continue to monitor, solumedrol decreased #HTN: patient is normotensive -Continue home medications #CAD s/p Pacemaker: not an acute issue -continue home medications. #IV Drug abuse -Urine toxicology: +opiates and +benzodiazepines -Patient on ?Methadone 10mg TID -Detox (Dr. Carlton) consulted. Recommendations appreciated: -COWS 1 -Will start suboxone once urine toxicology comes back negative for opioids. -Pt given a follow up appointment for Suboxone intake and treatment at [facility] for 06/24/[address] [place] [address]. -call if need help with Suboxone titration and for discharge: [phone]. #FEN -Not on any standing fluids -Encourage increased oral fluid intake -Electrolytes wnl, routine bmp monitoring -Diabetic diet #Prophylaxis -SCDs #Disposition -Transfer to med-surg -Isolation precaution pending cultures Visit type - Emergency Visit Emergency Visit: Yes ED Registration Date: 06/13/18 Care time: The patient presented to the Emergency Department on the above date and was hospitalized for further evaluation of their emergent condition. - New Patient This patient is new to me today: Yes Date on this admission: 06/17/18 - Critical Care Critical Care patient: No
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
[2018-06-17] MEDS ORDERED: Insulin (LOG) Aspart 100 UNITS/ML VIAL SQ SCH (16:30)
[2018-06-17] MEDS ORDERED: HEMOQUE TEST 1 EACH EACH ONE (17:10)
[2018-06-17] MEDS ORDERED: ALBUTEROL SO4 0.083% IH SOL 2.5 MG/3 ML VIAL.NEB. NEB PRN (20:37)
[2018-06-17] MEDS: ZOLPIDEM TARTRATE 5 MG TABLET PO SCH (21:03)
[2018-06-17] MEDS ORDERED: INSULIN (NOVOLOG) ASPART 100 UNITS/ML 10ML VIAL ONE (21:13)
[2018-06-17] MEDS ORDERED: CHLORHEXIDINE GLUCONATE 4% CLEANSER FOR DECOLONIZATION TP SCH (22:00)
[2018-06-17] MEDS ORDERED: ATORVASTATIN CA 20 MG TABLET (FP) PO SCH (22:00)
[2018-06-17] MEDS ORDERED: MUPIROCIN 2% TOPICAL OINTMENT FOR DECOLONIZATION NS SCH (22:00)
[2018-06-17] MEDS ORDERED: INSULIN (LEVEMIR) 100 UNITS/ML UNITS SQ SCH ×2 (22:00)
[2018-06-17] MEDS ORDERED: MONTELUKAST NA 10 MG TABLET PO SCH (22:00)
[2018-06-18] MEDS ORDERED: CEFEPIME HCL 1 GM VIAL (RESTRICTED TO ID) ONE ×3 (01:27→17:30)
[2018-06-18] MEDS ORDERED: DEXTROSE 5%-WATER 100 ML IVPB ONE ×3 (01:27→17:31)
[2018-06-18] MEDS: CEFEPIME 1 GM in DEXTROSE 5%-WATER 100 ML IVPB SCH ×3 (01:39→17:56)
--- NOTE | 2018-06-18 02:32 | FALL ---
Fall Exam - Event Location of Fall: Patient Room Fall from: While ambulating - Pre-Fall Mental Status: Alert, Cooperative Current Medications: Current Medications Generic Name Dose Route Start Last Admin Trade Name Freq PRN Reason Stop Dose Admin Albuterol Sulfate 1 amp 06/17/18 20:37 Ventolin 0.083% Nebulizer Soln - NEB Q4H PRN SHORTNESS OF BREATH Albuterol/Ipratropium 1 amp 06/18/18 08:00 Duoneb - NEB RQID RANDAL Aspirin 81 mg 06/18/18 10:00 Asa - PO DAILY RANDAL Atorvastatin Calcium 20 mg 06/17/18 22:00 06/17/18 21:03 Lipitor - PO 20 mg HS RANDAL Administration Chlorhexidine Gluconate 1 applic 06/17/18 22:00 Hibiclens For Decolonization - TP HS RANDAL Clonazepam 2 mg 06/17/18 22:00 06/17/18 21:03 Klonopin - PO 2 mg BID RANDAL Administration Enoxaparin Sodium 40 mg 06/18/18 10:00 Lovenox - SQ DAILY RANDAL Fluoxetine HCl 40 mg 06/18/18 10:00 Prozac - PO DAILY RANDAL Gabapentin 400 mg 06/17/18 22:00 06/17/18 21:07 Neurontin - PO 400 mg TID RANDAL Administration Cefepime HCl 1 gm/ Dextrose 100 mls @ 100 mls/hr 06/18/18 02:00 06/18/18 01: 39 IVPB 100 mls/hr Q8H-IV RANDAL Administration Protocol Insulin Aspart 1 vial 06/17/18 22:00 06/17/18 23:40 Novolog Vial Sliding Scale - SQ 4 units ACHS RANDAL Administration Protocol Insulin Detemir 30 units 06/18/18 22:00 Levemir Vial SQ HS RANDAL Levothyroxine Sodium 100 mcg 06/18/18 07:00 Synthroid - PO ACBK RANDAL Losartan Potassium 25 mg 06/16/18 10:00 06/17/18 10:31 Cozaar - PO 25 mg DAILY RANDAL Administration Lurasidone HCl 80 mg 06/18/18 10:00 Latuda - PO DAILY RANDAL Montelukast Sodium 10 mg 06/17/18 22:00 06/17/18 21:07 Singulair - PO 10 mg HS RANDAL Administration Mupirocin 1 applic 10/03/18 22:00 Bactroban Ointment (For Decolonization) - NS 06/19/18 09:59 BID RANDAL Nicotine 7 mg 06/15/18 17:00 06/17/18 10:38 Nicoderm Patch - TD 7 mg DAILY RANDAL Administration Pantoprazole Sodium 20 mg 06/16/18 10:00 06/17/18 10:31 Protonix - PO 20 mg DAILY RANDAL Administration Prednisone 40 mg 06/18/18 10:00 Deltasone - PO DAILY RANDAL Pregabalin 100 mg 06/15/18 22:00 06/17/18 21:03 Lyrica - PO 100 mg BID RANDAL Administration Zolpidem Tartrate 5 mg 06/15/18 22:00 06/17/18 21:03 Ambien - PO 5 mg HS RANDAL Administration - Post-Fall Patient Outcome: Pain Only Exam Findings: Paged by nurse that pt fell in room. Went to pt's room immediately. Pt found in room in bed, responsive, alert and oriented x 3. States she fell on her forearms and legs. Denies any head trauma or injury. CN 2-12 intact. Strength 5/5 throughout. No LOC or seizure activity per nurseLaxmi. Treatment: None Vital Signs: Vital Signs Temperature 98.5 F 06/18/18 02:18 Pulse Rate 87 06/18/18 02:18 Respiratory Rate 20 06/18/18 02:18 Blood Pressure 137/86 06/18/18 02:18 O2 Sat by Pulse Oximetry (%) 98 06/17/18 11:00 Identify factors for HIGH RISK for Head Injury: Pt on anticoagulant ( Antiplatelet Aspirin)
[2018-06-18] MEDS: INSULIN SLIDING SCALE (NOVOLOG) 1 VIAL SQ SCH ×3 (06:12→16:42)
[2018-06-18] MEDS: GABAPENTIN 400 MG CAPSULE (FP) PO SCH ×2 (06:13→13:58)
[2018-06-18] MEDS ORDERED: INSULIN (NOVOLOG) ASPART 100 UNITS/ML 10ML VIAL ONE (06:35)
[2018-06-18] MEDS ORDERED: LEVOTHYROXINE NA 100 MCG TABLET (FP) PO SCH (07:00)
[2018-06-18] MEDS: ALBUTEROL SO4 2.5/IPRATROPIUM 0.5 INH SOL 3 ML VIAL.NEB. NEB SCH ×3 (08:00→17:32)
[2018-06-18 08:06] LABS: HEMATOCRIT 31.3 % (32.4-45.2); HEMOGLOBIN 10.5 GM/dL (10.7-15.3); MCH 31.6 pg (25.7-33.7); MCHC 33.4 g/dl (32.0-36.0); MEAN CELL VOLUME 94.5 fl (80-96); MEAN PLT VOLUME 8.4 fl (7.5-11.1); PLATELET COUNT 185 K/MM3 (134-434); RBC 3.31 M/mm3 (3.60-5.2); RDW 14.5 % (11.6-15.6); WHITE BLOOD COUNT 7.6 K/mm3 (4.0-10.0)
[2018-06-18 08:25] LABS: ANION GAP 9 MMOL/L (8-16); BLOOD UREA NITROGEN 30 mg/dL (7-18); CALCIUM 8.3 mg/dL (8.5-10.1); CHLORIDE 102 mmol/L (98-107); CO2 30 mmol/L (21-32); CREATININE 0.9 mg/dL (0.55-1.3); GLUCOSE,RANDOM 96 mg/dL (74-106); PHOSPHOROUS 2.7 mg/dL (2.5-4.9); POTASSIUM 4.4 mmol/L (3.5-5.1); SODIUM 141 mmol/L (136-145)
[2018-06-18] MEDS ORDERED: PT OWN MED DRAWER 7, Y5N ONE (09:29)
[2018-06-18] MEDS ORDERED: FLUoxetine HCL 20 MG CAPSULE (FP) PO SCH (10:00)
[2018-06-18] MEDS ORDERED: ENOXAPARIN NA (PORCINE) 40 MG/0.4 ML DISP.SYRIN SQ SCH (10:00)
[2018-06-18] MEDS ORDERED: ASPIRIN 81 MG CHEWABLE TABLETS PO SCH (10:00)
[2018-06-18] MEDS ORDERED: LURASIDONE HCL 40 MG TABLET PO SCH (10:00)
[2018-06-18] MEDS ORDERED: predniSONE 20 MG TABLET (UD) PO SCH (10:00)
[2018-06-18] MEDS: PREGABALIN 100 MG CAPSULE PO SCH (10:11)
[2018-06-18] MEDS: clonazePAM 0.5 MG TABLET PO SCH (10:11)
[2018-06-18] MEDS: PANTOPRAZOLE 20 MG TABLET (FP) PO SCH (10:11)
[2018-06-18] MEDS: LOSARTAN POTASSIUM 25 MG TABLET PO SCH (10:12)
[2018-06-18] MEDS: NICOTINE 7 MG/24 HOURS TOPICAL PATCH TD SCH (10:12)
--- NOTE | 2018-06-18 12:56 | PN ---
Progress Note (short form) - Note Progress Note: S/P fall last night w/o injury. Breathing improving. No CP. OBJECTIVE: Intake & Output 06/15/18 06/16/18 06/17/18 06/18/18 23:59 23:59 23:59 23:59 Intake Total 1890 1220 820 100 Output Total 400 Balance 1490 1220 820 100 Weight 135 lb 127 lb 8 oz Last Vital Signs Temp Pulse Resp BP Pulse Ox 97.5 F L 84 20 140/85 98 06/18/18 09:00 06/18/18 09:00 06/18/18 09:00 06/18/18 09:00 06/17/18 11:00 Active Medications Albuterol Sulfate (Ventolin 0.083% Nebulizer Soln -) 1 amp NEB Q4H PRN PRN Reason: SHORTNESS OF BREATH Albuterol/Ipratropium (Duoneb -) 1 amp NEB RQID [facility] Last Admin: 06/18/18 11:36 Dose: 1 amp Atorvastatin Calcium (Lipitor -) 20 mg PO HS [facility] Last Admin: 06/17/18 21:03 Dose: 20 mg Chlorhexidine Gluconate (Hibiclens For Decolonization -) 1 applic TP HS [facility] Clonazepam (Klonopin -) 2 mg PO BID [facility] Last Admin: 06/18/18 10:11 Dose: 2 mg Fluoxetine HCl (Prozac -) 40 mg PO DAILY [facility] Last Admin: 06/18/18 10:11 Dose: 40 mg Gabapentin (Neurontin -) 400 mg PO TID [facility] Last Admin: 06/18/18 06:13 Dose: 400 mg Cefepime HCl 1 gm/ Dextrose 100 mls @ 100 mls/hr IVPB Q8H-IV [facility]; Protocol Last Admin: 06/18/18 10:12 Dose: 100 mls/hr Insulin Aspart (Novolog Vial Sliding Scale -) 1 vial SQ ACHS [facility]; Protocol Last Admin: 06/18/18 12:30 Dose: 4 units Insulin Detemir (Levemir Vial) 30 units SQ HS [facility] Levothyroxine Sodium (Synthroid -) 100 mcg PO ACBK [facility] Last Admin: 06/18/18 06:13 Dose: 100 mcg Losartan Potassium (Cozaar -) 25 mg PO DAILY [facility] Last Admin: 06/18/18 10:12 Dose: 25 mg Lurasidone HCl (Latuda -) 80 mg PO DAILY [facility] Last Admin: 06/18/18 12:44 Dose: 80 mg Montelukast Sodium (Singulair -) 10 mg PO HS [facility] Last Admin: 06/17/18 21:07 Dose: 10 mg Mupirocin (Bactroban Ointment (For Decolonization) -) 1 applic NS BID [facility] Stop: 06/19/18 09:59 Nicotine (Nicoderm Patch -) 7 mg TD DAILY [facility] Last Admin: 06/18/18 10:12 Dose: 7 mg Pantoprazole Sodium (Protonix -) 20 mg PO DAILY [facility] Last Admin: 06/18/18 10:11 Dose: 20 mg Prednisone (Deltasone -) 40 mg PO DAILY [facility] Last Admin: 06/18/18 10:11 Dose: 40 mg Pregabalin (Lyrica -) 100 mg PO BID [facility] Last Admin: 06/18/18 10:11 Dose: 100 mg Zolpidem Tartrate (Ambien -) 5 mg PO [facility] Last Admin: 06/17/18 21:03 Dose: 5 mg Gen: NAD at rest Heart: RRR Lung: scattered rhonchi Abd: soft, nontender Ext: no edema Laboratory Results - last 24 hr 06/13/18 06/17/18 06/17/18 18:50 11:20 12:39 WBC RBC Hgb Hct MCV MCH MCHC RDW Plt Count MPV Sodium Potassium Chloride Carbon Dioxide Anion Gap BUN Creatinine Creat Clearance w eGFR POC Glucometer [phone] Random Glucose Calcium Phosphorus Magnesium Opiates Screen Negative Methadone Screen Negative Barbiturate Screen Negative Phencyclidine Screen Negative Ur Amphetamines Screen Negative MDMA (Ecstasy) Screen Negative Benzodiazepines Screen Positive A* Cocaine Screen Negative U Marijuana (THC) Screen Negative TB Test (QFT) Nil 0.06 TB Test (QFT) Mitogen 7.85 TB Test TB - Nil <0.01 TB Test (QFT) Negative TB Positive Criteria TB Test (QFT) Interp 06/17/18 06/17/18 06/18/18 17:21 21:09 06:11 WBC RBC Hgb Hct MCV MCH MCHC RDW Plt Count MPV Sodium Potassium Chloride Carbon Dioxide Anion Gap BUN Creatinine Creat Clearance w eGFR POC Glucometer [phone] 148 Random Glucose Calcium Phosphorus Magnesium Opiates Screen Methadone Screen Barbiturate Screen Phencyclidine Screen Ur Amphetamines Screen MDMA (Ecstasy) Screen Benzodiazepines Screen Cocaine Screen U Marijuana (THC) Screen TB Test (QFT) Nil TB Test (QFT) Mitogen TB Test TB - Nil TB Test (QFT) TB Positive Criteria TB Test (QFT) Interp 06/18/18 06/18/18 06/18/18 07:30 07:30 11:25 WBC 7.6 RBC 3.31 L Hgb 10.5 L Hct 31.3 L MCV 94.5 MCH 31.6 MCHC 33.4 RDW 14.5 Plt Count 185 MPV 8.4 Sodium 141 Potassium 4.4 Chloride 102 Carbon Dioxide 30 Anion Gap 9 BUN 30 H Creatinine 0.9 Creat Clearance w eGFR > 60 POC Glucometer 202 Random Glucose 96 Calcium 8.3 L Phosphorus 2.7 Magnesium 2.0 Opiates Screen Methadone Screen Barbiturate Screen Phencyclidine Screen Ur Amphetamines Screen MDMA (Ecstasy) Screen Benzodiazepines Screen Cocaine Screen U Marijuana (THC) Screen TB Test (QFT) Nil TB Test (QFT) Mitogen TB Test TB - Nil TB Test (QFT) TB Positive Criteria TB Test (QFT) Interp ASSESSMENT AND PLAN: Acute on Chronic Hypoxic and Hypercapneic Respiratory Failure improving Acute COPD Exacerbation Pneumonia Hemoptysis Sepsis CAD HTN DM Hep C Quantiferon (-) - Prednisone - inhaled bronchodilators - O2 to keep SpO2 >90% - ABX per ID - will need outpt f/u of CT chest in 4-6 weeks and PET scan if nodule still present Dr Singer
--- NOTE | 2018-06-18 13:32 | CON.ORTH ---
Consult Reason for Consultation:: s/p fall - Past Medical History Cardio/Vascular: Yes: CAD, CHF, HTN, Other (valve replacements) ...: No Psych: Yes: Anxiety - Past Surgical History Past Surgical History: Yes: Permanent Pacemaker, Valve Replacement (mitral and ? tricuspid 2011 at [facility]) - Alcohol/Substance Use Hx Alcohol Use: No - Smoking History Smoking history: Current every day smoker Have you smoked in the past 12 months: Yes Aproximately how many cigarettes per day: 40 Home Medications - Allergies Allergies/Adverse Reactions: Allergies Allergy/AdvReac Type Severity Reaction Status Date / Time ciprofloxacin [From Cipro] Allergy Verified 06/13/18 16:59 Sulfa (Sulfonamide Allergy Verified 06/13/18 16:59 Antibiotics) - Home Medications Home Medications: Ambulatory Orders Albuterol 2.5/Ipratropium 0.5 [Duoneb -] 1 neb IH QID 06/15/18 Alendronate Sodium [Binosto] 70 mg PO DAILY 06/15/18 Aspirin [ASA -] 81 mg PO DAILY 06/15/18 Aspirin [Aspirin EC] 81 mg PO DAILY 06/15/18 Atorvastatin Ca [Lipitor] 20 mg PO DAILY 06/15/18 Atorvastatin Ca [Lipitor] 20 mg PO HS 06/15/18 Clonazepam [Klonopin] 2 mg PO BID 06/15/18 Fluoxetine HCl 40 mg PO DAILY 06/15/18 Fluoxetine HCl [Prozac] 40 mg PO DAILY 06/15/18 Fluticasone/Vilanterol [Breo Ellipta 200-25 Mcg INH] 200 mcg IH QID PRN Gabapentin 400 mg PO TID 06/15/18 Gabapentin 400 mg PO TID 06/15/18 Insulin (LOG) Aspart [NovoLOG -] 6 units SQ TID 06/15/18 Insulin Glargine,Hum.rec.anlog [Lantus] 30 unit SQ HS 06/15/18 Ipratropium/Albuterol Sulfate [Combivent Respimat Inhal [place]] 4 gm IH Q6H PRN 06/15/18 Levothyroxine [Synthroid -] 100 mcg PO DAILY 06/15/18 Levothyroxine [Synthroid -] 100 mcg PO DAILY 06/15/18 Lurasidone HCl [Latuda -] 80 mg PO DAILY 06/15/18 Lurasidone HCl [Latuda] 80 mg PO DAILY 06/15/18 Methadone [Dolophine -] 10 mg PO TID 06/15/18 Montelukast Na [Singulair -] 10 mg PO HS 06/15/18 Omeprazole Magnesium [Prilosec Otc] 20 mg PO DAILY 06/15/18 Pregabalin [Lyrica] 100 mg PO BID 06/15/18 Roflumilast [Daliresp] 500 mcg PO DAILY 06/15/18 Tiotropium [place] [Spiriva Respimat] 4 gm IH Q6H 06/15/18 Zolpidem Tartrate [Ambien] 5 mg PO DAILY 06/15/18 predniSONE [Deltasone -] 20 mg PO DAILY 06/15/18 Family Disease History - Family Disease History Family Disease History: Heart Disease: Father (CA age 60; ICD; 75 yo) Physical Exam for Ortho Vital Signs: Vital Signs Temperature 97.5 F L 06/18/18 09:00 Pulse Rate 84 06/18/18 09:00 Respiratory Rate 20 06/18/18 09:00 Blood Pressure 140/85 06/18/18 09:00 O2 Sat by Pulse Oximetry (%) 98 06/17/18 11:00 Labs: CBC, BMP 06/18/18 07:30 06/18/18 07:30 INR, PTT INR 0.97 (0.83-1.09) 06/13/18 17:55 - Upper Extremity Wrist: Yes: Exam WNL, Right - Lower Extremity Knee: Yes: Left, Other (minimal ttp over pain, full ROM, full strength, pt is ambulating and moving knee in her rooom and hallway without difficulty, nvi) Imaging - Results X-ray: Report Reviewed, Image Reviewed Assessment/Plan 53 year old female with a known pmh of COPD, asthma, HCV, DM, HTN, CAD s/p pacemaker, and kidney disease was brought to the hospital by brother for > 1 week of fevers, hemoptysis, night sweats, dyspnea, nausea vomiting and diarrhea , headache and neck pain. She was being d/c'd today but had a fall. Xrays showed possible left patella fx. Pt has had multiple orthopedic surgeries for trauma. She has a h/o of left patella fx 2-3 years ago that was treated conservatively. Pt has no swelling, minimal ttp, full ROM and is ambulating without a limp. a/p- left knee contusion -xrays show old healed left patella fx Xrays are all neg for acute pathology NTD orthopedically ok to d/c from ortho pov d/w Dr. Davis
--- NOTE | 2018-06-18 15:00 | PN ---
Teaching Attending Note Name of Resident: Sridevi Patel ATTENDING PHYSICIAN STATEMENT I saw and evaluated the patient. I reviewed the resident's note and discussed the case with the resident. I agree with the resident's findings and plan as documented. SUBJECTIVE:s/p mechanical fall last night where she landed on her knees and forearms. no LOC and did not strike her head. some mild tenderness in the R wrist states swelling is chronic from previous surgery at the site and does not appear larger. denies Cp, SOB, fever, chills, N/V/C/D OBJECTIVE: Last Vital Signs Temp Pulse Resp BP Pulse Ox 97.9 F 102 H 20 134/84 98 06/18/18 14:22 06/18/18 14:22 06/18/18 14:22 06/18/18 14:06/17/18 11:00 General NAD Lungs scattered wheezing. no rales or crackles Extremities R wrist with mild swelling, old surgical scar. some limited ROM due to pain, good ROM of the L wrist, B/L elbow, B/L shoulder. no bone point tenderness along the spine. no deformities noted at either extremity. some bruising noted around the L olnecron. 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 1. Acute hypoxic/hypercapneic respiratory failure- possible due to COPD exacerbation vs PNA. clinically improving. on pred 40mg. will need slow taper. on cefepime day 5. will d/w ID about switching over to po. check pre and post prior to discharge. pulmonary on board 2. Sepsis due to PNA however concern for TB-quantiferon negative. AFB neg x3. on cefipiome day 5. will d/w ID about transition to po. can d/c isolation. 3. mechanical fall- no LOC states she spilled water and slipped. no LOC or striking her head. Head CT negative. multiple XR of the joints obtained showing patella fracture. pt has no pain at the area. will consult ortho 4. RLL spiculated mass- 1.2cm seen. will need repeat imaging to further evaluate for further workup 5. s/p PPM 6. DM- improved. resume home dose of levemir 30 units HS. iss and BGM 7. Mitral/Tricuspid valve replacements, ?h/o infective endocarditis 8. Continuous polysubstance abuse -Utox + BZD and opiates on arrival. admits to nicotine use. on patch. counselled on risks assoc with illicit drug use. not interested in inpatient rehab as she has too many things to tend to at home. detox specialist consulted 9. ?H/o multiple PE., 10. DVT ppx- lovenox 11. spoke with sister in law over the phone. she was previously living with them and now is not allowed to return "due to too many issues". will notify SW discuss with pt regarding options if she has family or friends.
--- NOTE | 2018-06-18 19:25 | DS ---
Physical Exam: SUBJECTIVE: Patient seen and examined this morning at bedside. No acute events overnight. Pre- and post-exercise was done today to assess need for oxygen therapy at home. It was recommended that patient needed oxygen therapy at home because she was desaturating at 86% with walking. Patient refused to stay longer to wait for the oxygen and wanted to sign AMA. Explained to patient the risks of leaving the hospital without oxygen, including worsening hypoxia, lung function and even , and the benefits of having oxygen at home. Patient understood the risks and still wants to leave AMA. OBJECTIVE: Vital Signs Period Temp Pulse Resp BP Sys/[place] Pulse Ox Last 24 Hr 97.5 F-98.8 F 70-109 20-22 118-157/70-94 91 PHYSICAL EXAM GENERAL: The patient is awake, alert, and fully oriented, on 3L NC HEAD: Normal with no signs of trauma. EYES: PERRLA, sclera anicteric, conjunctiva clear. ENT: Ears normal, nares patent, oropharynx clear without exudates, moist mucous membranes. NECK: Trachea midline, full range of motion, supple. LUNGS: Clear to auscultation, bilaterally HEART: Regular rate and rhythm, S1, S2 without murmur, rub or gallop. ABDOMEN: Soft, nontender, nondistended, normoactive bowel sounds. EXTREMITIES: 2+ pulses, warm, well-perfused, no edema. NEUROLOGICAL: Cranial nerves II through XII grossly intact. Normal speech, gait not observed. PSYCH: Appropriate mood and affect. SKIN: Warm, dry, normal turgor, no rashes or lesions noted. LABS Laboratory Results - last 24 hr 06/17/18 06/18/18 06/18/18 21:09 06:11 07:30 WBC 7.6 RBC 3.31 L Hgb 10.5 L Hct 31.3 L MCV 94.5 MCH 31.6 MCHC 33.4 RDW 14.5 Plt Count 185 MPV 8.4 Sodium Potassium Chloride Carbon Dioxide Anion Gap BUN Creatinine Creat Clearance w eGFR POC Glucometer 166 148 Random Glucose Calcium Phosphorus Magnesium 06/18/18 06/18/18 06/18/18 07:30 11:25 16:34 WBC RBC Hgb Hct MCV MCH MCHC RDW Plt Count MPV Sodium 141 Potassium 4.4 Chloride 102 Carbon Dioxide 30 Anion Gap 9 BUN 30 H Creatinine 0.9 Creat Clearance w eGFR > 60 POC Glucometer 202 348 Random Glucose 96 Calcium 8.3 L Phosphorus 2.7 Magnesium 2.0 Imaging: CXR (06/13/18) - No infiltrate or consolidation, no edema in the lungs. Chest CTA - No evidence of acute pulmonary emboli. 1.2cm nodular opacity right lower lobe. Neoplasm cannot be excluded. Head CT without contrast - No acute bleed or mass or fracture. No CT evidence of acute infarct. CXR (06/15/18) - No acute change since prior study. Echo - LV is normal in size. LV systolic function is normal. No regional wall motion abnormalities. EF = 60-65%. LA size is normal. RA size is normal. There is a bioprosthetic mitral valve. The prosthetic mitral valve is well-seated. The prosthetic mitral valve appears to open well. There is mild mitral regurgitation. There is a bioprothetic tricuspid valve. There is mild tricuspid regurgitation. RV systolic pressure is normal. There is mild aortic sclerosis. Mild pulmonic valvular regurgitation. There is a pacemaker lead in the right ventricle. No obvious vegetations. Clinical correlation is recommended. There is no pericardial effusion. Microbiology 06/13/18 19:00 Blood - Peripheral Venous Blood Culture - Final NO GROWTH AFTER 5 DAYS INCUBATION 06/13/18 18:00 Blood - Peripheral Venous Blood Culture - Final NO GROWTH AFTER 5 DAYS INCUBATION 06/13/18 17:55 Blood - Peripheral Venous Blood Culture - Final NO GROWTH AFTER 5 DAYS INCUBATION 06/16/18 12:45 Sputum - Expectorated AFB Smear Concentration - Final 06/16/18 12:45 Sputum - Expectorated Direct Acid Fast Bacilli Smear - Final 06/16/18 12:45 Sputum - Expectorated Mycobacterial Culture - Preliminary HOSPITAL COURSE: Date of Admission:06/13/18 Date of Discharge: 06/18/18 Patient is a 53 year old female with a known pmh of COPD, asthma, HCV, DM, HTN, CAD s/p pacemaker, and kidney disease was brought to the hospital by brother for a 1 week of fevers, hemoptysis, night sweats, dyspnea, nausea, vomiting and diarrhea, headache and neck pain. On initial presentation at the ED, patient was noted to have Temp 101.5F, RR 25, HR 122, initial O2 sat 87% on RA. ABG was done which showed acute hypoxic and hypercapneic respiratory failure, likely secondary to COPD exacerbation. Cardiology, pulmonology and ID consulted. Patient was placed on Bipap and given IV solumedrol and duonebs. She was started on IV antibiotics Cefepime and vancomycin. Several tests were done to rule out sepsis, including HIV test, TB quant and sputum AFB, blood and urine cultures were done. Patient was put on isolation precaution. Patient's condition continued to improve, and was weaned off bipap. HIV Ab, TB quant and sputum AFB, and cultures were negative for any growth and isolation was removed. Pre- and post-exercise was done prior to discharge to assess need for oxygen therapy at home. It was recommended that patient needed oxygen therapy at home because she was desaturating at 86% with walking. Patient refused to stay longer to wait for the oxygen and wanted to sign AMA. Explained to patient the risks of leaving the hospital without oxygen, including worsening hypoxia, lung function and even , and the benefits of having oxygen at home. Patient understood the risks and still wants to leave AMA. Prior to leaving, patient was advised to follow-up with truck driver supervisor for further evaluation of the mass that was found in her lungs and with her primary care physician within the week. She completed 5 days of Cefepime and was not recommended for further antibiotics per ID. Prednisone taper was prescribed and sent to pharmacy. Minutes to complete discharge: 40 Discharge Summary Reason For Visit: ACUTE EXACERBATION OF CHRONIC OBSTRUCTIVE Condition: Stable - Instructions Diet, Activity, Other Instructions: You were admitted because you were complaining of fevers, night sweats and difficulty breathing. Several tests were done to rule out an infection and were negative. You were given IV antibiotics. It is likely that your symptoms were not caused by an infection but a flare-up of your COPD. You were given nebulizations and steroids. A CAT scan was done which showed a small mass in your lungs. It is important that you follow-up with a truck driver supervisor in 4 weeks for repeat CAT scan. You also had a fall while you were here at the hospital. Xrays were done and all are negative for any new fractures. Please take the following medications as prescribed. 1. Take Prednisone as prescribed: Take 30mg once a day for 3 days starting tomorrow (Fri, Fri, Fri). Then take 20mg once a day for 3 days (Mon, Tues, Wed). Then take 10mg once a day for 3 days (Jun 25-). 2. Please continue to take your Levemir 30 units at night to help control your blood sugar levels 3. It is important to stop smoking so please abstain from cigarettes or other tobacco products. If you need help quitting, your primary care physician can provide Continue your home medications as prescribed. Follow-ups: -Please follow-up with the truck driver supervisor (Dr. Singer) in 4-6 weeks for a repeat CAT scan. -Please call [facility] [place] at [phone] for a follow-up appointment for Suboxone treatment. You are scheduled for 06/24/18 at 2 [facility] [place]. -Please follow up with your primary care physician in 1 week. Call [phone] or go to the ED if with worsening fevers, chills, shortness of breath, chest pain or any new concerns noted. Referrals: Singh Ocasio MD [Staff Physician] - Saud Singer MD [Staff Physician] - Disposition: AGAINST MEDICAL ADVICE - Home Medications Comprehensive Discharge Medication List: Ambulatory Orders Albuterol 2.5/Ipratropium 0.5 [Duoneb -] 1 neb IH QID 06/15/18 Alendronate Sodium [Binosto] 70 mg PO DAILY 06/15/18 Aspirin [ASA -] 81 mg PO DAILY 06/15/18 Aspirin [Aspirin EC] 81 mg PO DAILY 06/15/18 Atorvastatin Ca [Lipitor] 20 mg PO DAILY 06/15/18 Atorvastatin Ca [Lipitor] 20 mg PO HS 06/15/18 Clonazepam [Klonopin] 2 mg PO BID 06/15/18 Fluoxetine HCl 40 mg PO DAILY 06/15/18 Fluoxetine HCl [Prozac] 40 mg PO DAILY 06/15/18 Fluticasone/Vilanterol [Breo Ellipta 200-25 Mcg INH] 200 mcg IH QID PRN Gabapentin 400 mg PO TID 06/15/18 Gabapentin 400 mg PO TID 06/15/18 Insulin (LOG) Aspart [NovoLOG -] 6 units SQ TID 06/15/18 Insulin Glargine,Hum.rec.anlog [Lantus] 30 unit SQ HS 06/15/18 Ipratropium/Albuterol Sulfate [Combivent Respimat 20-100 Mcg] 4 gm IH Q6H PRN Levothyroxine [Synthroid -] 100 mcg PO DAILY 06/15/18 Levothyroxine [Synthroid -] 100 mcg PO DAILY 06/15/18 Lurasidone HCl [Latuda -] 80 mg PO DAILY 06/15/18 Lurasidone HCl [Latuda] 80 mg PO DAILY 06/15/18 Montelukast Na [Singulair -] 10 mg PO HS 06/15/18 Omeprazole Magnesium [Prilosec Otc] 20 mg PO DAILY 06/15/18 Pregabalin [Lyrica] 100 mg PO BID 06/15/18 Roflumilast [Daliresp] 500 mcg PO DAILY 06/15/18 Tiotropium [place] [Spiriva Respimat] 4 gm IH Q6H 06/15/18 Zolpidem Tartrate [Ambien] 5 mg PO DAILY 06/15/18 Losartan Potassium [Cozaar -] 25 mg PO DAILY tablet 06/18/18 predniSONE [Deltasone -] See Taper PO ASDIR #18 tab 06/18/18 This patient is new to me today: Yes Date on this admission: 06/20/18 Emergency Visit: Yes ED Registration Date: 06/13/18 Care time: The patient presented to the Emergency Department on the above date and was hospitalized for further evaluation of their emergent condition. Critical Care patient: No - Discharge Referral Referred to [facility] Med P.C.: No
[2018-06-18] MEDS ORDERED: INSULIN (LEVEMIR) 100 UNITS/ML UNITS SQ SCH (22:00)
[2018-06-20 09:41] VITALS: BP 140/85; PULSE 84; TEMP 97.5
== END 2018-06-18 18:25 | disposition left against medical advice (07) | DRG 720 ==
LOC: JER 16:54 → JERBED 22:52 → JICU 06-14 02:23 → J5S 06-17 20:25
PROVIDERS: ADMIT Internal Medicine; ATTEND Internal Medicine
PROC: 5A0945Z Assistance with Respiratory Ventilation, 24-96 Consecutive Hours (ICD-10-PCS; principal; 2018-06-13)
PROC: HZ2ZZZZ Detoxification Services for Substance Abuse Treatment (ICD-10-PCS; 2018-06-15)
DX: A41.9 Sepsis, unspecified organism (principal); J96.02 Acute respiratory failure with hypercapnia; J96.01 Acute respiratory failure with hypoxia; I50.33 Acute on chronic diastolic (congestive) heart failure; E87.2 Acidosis; I42.9 Cardiomyopathy, unspecified; E11.40 Type 2 diabetes mellitus with diabetic neuropathy, unspecified; F11.20 Opioid dependence, uncomplicated; E83.42 Hypomagnesemia; R04.2 Hemoptysis; E87.5 Hyperkalemia; J44.1 Chronic obstructive pulmonary disease with (acute) exacerbation; B18.2 Chronic viral hepatitis C; I25.10 Atherosclerotic heart disease of native coronary artery without angina pectoris; Z95.2 Presence of prosthetic heart valve; Z95.0 Presence of cardiac pacemaker; Z79.4 Long term (current) use of insulin; Z86.711 Personal history of pulmonary embolism; F31.81 Bipolar II disorder; R63.4 Abnormal weight loss; Z68.21 Body mass index [BMI] 21.0-21.9, adult; F13.10 Sedative, hypnotic or anxiolytic abuse, uncomplicated; R91.1 Solitary pulmonary nodule; Z91.14 Patient's other noncompliance with medication regimen
CPT/HCPCS: 36415; 36600; 70450-TC; 71045-TC-FY; 71275-TC; 72050-TC-FY; 72070-TC-FY; 72100-TC-FY; 73070-TC-LT-FY; 73070-TC-RT-FY; 73090-TC-LT-FY; 73090-TC-RT-FY; 73552-TC-LT-FY; 73560-TC-LT-FY; 73560-TC-RT-FY; 73590-TC-LT-FY; 73590-TC-RT-FY; 80048; 80053; 80061; 80307; 81003; 82375; 82550; 82803; 82947; 82962; 83036; 83050; 83605; 83690; 83721; 83735; 83880; 84100; 84439; 84443; 84484; 85025; 85027; 85610; 85730; 86140; 86480; 86850; 86900; 86901; 87040; 87070; 87086; 87116; 87205; 87206; 87389; 87556; 87804; 87899; 90688; 93005; 93010; 93306-TC; 94640; 94660; 94761; 99284-25; 99285-25; G0008; G0480; J0131; J7030